=== PATIENT | female | born 1955 | race Caucasian/White ===

== ENCOUNTER → 2016-08-10 | Outpatient (CLI) | payer MEDICARE ==
[~2016-08-10] MED LIST: AMIT25TA PO; BENA25CA2 PO; CALC1TAB16 PO; CHAN1PAK9 PO; CLAR10CA3 PO; CYMB60CA3 PO; DOCU10CA PO; EFFI10TA4 PO; EQ A1TAB12 PO; FLON0.054; FOLI1TAB2 PO; HYDR-4274 PO; IRBE150T14 PO; MECL-68 PO; MELO15TA4 PO; MORP-38 PO; NIAC500T5 PO; NITR4TASL SL; OXYC15TA76 PO; OXYC1TAB16 PO; OXYC20TA21 PO; PERC10TA17 PO; PRAV40TA2 PO; PRED10TA PO; PREG50CA PO; REQU2TAB3 PO; ROBA750T4 PO; SKEL-29 PO; SOMA350T PO; TOPR50TA PO; TRIA-15 PO; VITA20008 PO; VOLT1GEL24 TD; ZOFR20TA PO
--- NOTE | 2016-09-02 00:20 | ECWPNPC ---
PATIENT NAME: HASEEB KURTZ : 1955 GENDER: FEMALE VISIT DATE: 08/10/2016 DISCHARGE DATE: 08/10/16 1605 VISIT LOCKED DATE TIME: PHYSICIAN: ESTRELLA TIRADO RESOURCE: ESTRELLA TIRADO REASON FOR APPOINTMENT 1. NEIL HISTORY OF PRESENT ILLNESS HISTORY OF PRESENT ILLNESS: PAIN THE PATIENT DESCRIBES THE PAIN... FALL RISK SCREENING: SCREENING :NO FALLS IN THE PAST YEAR TODAY'S VISIT: NOTES: IS STATUS POST BOTOX FOR MIGRAINE PREVENTION. MIGRAINE AURA IS OCCURRING ALMOST DAILY. HASHAD A FULL MIGRAINE X 1 IN LAST 2 WEEKS. THIS EVENT LASTED 16 HOURS. AURA IS GONE WITHIN A HOUR WITH MEDS. MINIMAL NAUSEA IN LAST 2 WEEKS, BUT BEFORE THIS IT WAS SEVERE AND THIS WAS NOT TOUCHED BY NAUSEA MEDS. IS NOTING METOCLOPRAMIDE HAS NOT BEEN EFFECTIVE. HAS NOTED MORPHINE HAS HELPED HIP PAIN. APPETITE IS POOR. . CURRENT MEDICATIONS TAKING CALCIUM 1200+D3 600-40-500 MG-MG-UNIT TABLET EXTENDED RELEASE 24 HOUR ORALLY ONCE DAILY, NOTES: 06/30/16 08 TAKING EFFIENT 10 MG TABLET 1 TABLET ORALLY ONCE A DAY (CESAR), NOTES: 06/30/161199 DR. PALOMARES AWARE TAKING NITROGLYCERIN 0.4 MG TABLET SUBLINGUAL 1 TABLET UNDER THE TONGUE AND ALLOW TO DISSOLVE NEEDED SUBLINGUAL NEEDED (CESAR), NOTES: > 1 MONTH TAKING LORATADINE 10 MG TABLET 1 TABLET ORALLY ONCE A DAY NEEDED, NOTES: 06/30/16 0800 TAKING NIACIN 500 MG TABLET 1 TABLET ORALLY ONCE A WEEK, NOTES: 06/29/16 0800 TAKING MECLIZINE HCL 25 MG CAPSULE 1 CAP(S) ORALLY DAILY NEEDED, NOTES: > 3 MONTHS TAKING VOLTAREN 1 % GEL APPLY TO HARITHA KNEES OR HIPS EXTERNALLY EVERY 6 HOURS NEEDED (PAIN CLINIC), NOTES: > 1 MONTH TAKING ATORVASTATIN CALCIUM 40 MG TABLET 1 TABLET ORALLY ONCE A DAY, NOTES: 06/29/161999 TAKING ASPIRIN ADULT LOW DOSE 81 MG TABLET DELAYED RELEASE 1 TABLET ORALLY ONCE A DAY, NOTES: 06/30/16 1200 TAKING HOSPITAL BED _ MISCELLANEOUS 1 ICD: M25.50, M79.1 DAILY TAKING ZOFRAN 4 MG TABLET 2 TABLETS ORALLY Q 8 HRS PRN NAUSEA MDD=3, NOTES: > 2 WEEKS TAKING COLACE 100 MG CAPSULE 1 CAPSULE NEEDED ORALLY BID, NOTES: > 1 WEEK TAKING ETOTSTISCT-[id number]-[id number] 50-325-40 MG TABLET 1 TABLET NEEDED ORALLY EVERY 4 HRS PRN HEADACHE MDD=3 TAKING MORPHINE SULFATE ER 30 MG TABLET EXTENDED RELEASE 1 TABLET ORALLY EVERY 8 HOURS MDD=3 CHRONIC PAIN TAKING REGLAN 10 MG TABLET 1 TAB ORALLY Q 8 HRS PRN MIGRAINE TAKING CYMBALTA 60 MG CAPSULE DELAYED RELEASE PARTICLES 1 CAPSULE ORALLY ONCE A DAY, NOTES: 06/30/16 1200 TAKING PREDNISONE 20 MG TABLET 1 TABLET ORALLY ONCE A DAY TAKING TOPROL XL 50 MG TABLET EXTENDED RELEASE 24 HOUR 1 TABLET ORALLY TWICE A DAY, NOTES: 06/30/16 0800 TAKING AMLODIPINE BESYLATE 5 MG TABLET 2 TABLET ORALLY ONCE A DAY, NOTES: 06/30/16 0800 TAKING IRBESARTAN-HYDROCHLOROTHIAZIDE 150-12.5 MG TABLET 2 TABLET ORALLY TWICE DAILY/DR GUERRERO, NOTES: 06/30/16 0800 TAKING ROBAXIN-750 750 MG TABLET 1 TABLET ORALLY EVERY 8 HOURS NEEDED, NOTES: 06/30 16 08 NOT-TAKING OXYMORPHONE HCL 5 MG TABLET 1 TABLET ORALLY EVERY 6-8 HRS PRN PAIN, NOTES: 06/29/161999 NOT-TAKING FIORICET APAP 325-50-40 CAPSULE 1 CAPSULE NEEDED ORALLY EVERY 4 HOURS PRN FOR HEADACHES MDD4 NOT-TAKING HYDROMORPHONE HCL 2 MG TABLET 1 TABLET NEEDED ORALLY EVERY 8 HRS PRN PAIN MDD=3 NOT-TAKING TRIAZOLAM 0.25 MG TABLET 1 TABLET AT BEDTIME NEEDED ORALLY ONCE A DAY, NOTES: 05-07-16 MEDICATION LIST REVIEWED AND RECONCILED WITH THE PATIENT PAST MEDICAL HISTORY FIBROMYALGIA OSTEOPOROSIS HEREDITARY SPHEROCYTOSIS S/P SPLENECTOMY HYPERTHYROIDISM / NODULAR THYROID 2011 S/P STENTING ENDOMETRIOSIS S/P MISSY / BSO RHEUMATOID ARTHRITIS R HAND NUMBNESS / PARESTHESIAS OBSTRUCTIVE SLEEP APNEA DYSLIPIDEMIA ALLERGIC RHINITIS ANXIETY HYPERTENSION ALLERGIES GABAPENTIN: MIGRAINES: ALLERGY LYRICA: FEET SWELLING: ALLERGY NORTRIPTYLINE HCL: ITCHING/RASH: ALLERGY SOCIAL HISTORY GENERAL: TOBACCO USE ARE YOU A:NONSMOKER 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 NEW PATIENT PAIN DIARY TODAY'S VISITNOTES FROM 0-10, WHAT LEVEL IS YOUR PAIN TODAY?0 PAIN CLINIC PFS, CLERGY, PUBLIC HEALTH REFERRALS PFS REFERRAL NEEDED?NO CLERGY REFERRAL NEEDED?NO PUBLIC HEALTH REFERRAL NEEDED?NO WAS THE PROVIDER NOTIFIED OF ANY PERTINENT INFO?NO PFS REFERRAL NEEDED?NO CLERGY REFERRAL NEEDED?NO PUBLIC HEALTH REFERRAL NEEDED?NO WAS THE PROVIDER NOTIFIED OF ANY PERTINENT INFO?NO REVIEW OF SYSTEMS CONSTITUTIONAL: ANY CHANGE IN YOUR MEDICAL CONDITION? NO . CHILLS NO . FEVER NO . INFECTION: DO YOU HAVE NEW INFECTIONS? NO . DO YOU HAVE HISTORY OF MRSA? NO . MUSCULOSKELETAL: ANY NEW PATTERNS OF PAIN OR NUMBNESS? NO . GASTROENTEROLOGY: ANY NEW CHANGE IN BOWEL CONTROL? NO - QOD - NOT CONSTIPATED . GENITOURINARY: ANY NEW CHANGE IN BLADDER CONTROL? NO . IS THERE A CHANCE YOU COULD BE ? NO . HEMATOLOGY/LYMPH: DO YOU TAKE ANY BLOOD THINNERS? (FOR EXAMPLE- COUMADIN, PLAVIX, AGGRENOX, PLATEL, PRADAXA, OR XARELTO) YES EFFIENT . WHEN WAS YOUR LAST DOSE? DATE: TIME: . NEUROLOGY: HAVE YOU FALLEN IN THE PAST 6 MONTHS? NO . ANY NEW EXTREMITY NUMBNESS OR WEAKNESS? NO . CARDIOLOGY: DO YOU HAVE A PACEMAKER OR DEFIBRILLATOR? NO . RESPIRATORY: HAVE YOU BEEN SICK IN THE PAST WEEK? NO . FEVER NO . FLU LIKE SYMPTOMS? NO . COUGH NO . INTEGUMENTARY: DO YOU HAVE ANY RASHES OR OPEN SORES? NO . ALLERGIC/IMMUNO: ARE YOU ALLERGIC TO SHELLFISH OR IV DYE? NO . ANY NEW ALLERGIES? NO . PSYCHIATRIC: DO YOU HAVE THOUGHTS OF HURTING YOURSELF OR SOMEONE ELSE? NO . ARE YOU ABUSED, NEGLECTED, OR IN AN UNSAFE ENVIRONMENT? NO . ENDOCRINOLOGY: ARE YOU DIABETIC? YES . OTHER: DO YOU NEED ANY PRESCRIPTIONS? NO . IF YES, PLEASE LIST: ____ . ANY NEW PROBLEMS WITH YOUR MEDICATIONS? NO . WHEN DID YOU LAST EAT? ____ . WHEN DID YOU LAST DRINK? ____ . WHAT DID YOU LAST DRINK? ____ . NAME OF PERSON DRIVING YOU HOME? ____ . DO YOU HAVE ANY OTHER QUESTIONS OR CONCERNS NO . REVIEWED BY: PROVIDER: ESTRELLA PAULA . VITAL SIGNS WT 162 LBS, HT 61.25 IN, BMI 30.36 INDEX, BP 136/67 MM HG, HR 71 /MIN, RR 18 /MIN, TEMP 96.7 F, OXYGEN SAT % 96%, NA INITIALS SC 15:17, REVIEWED BY: MLF. EXAMINATION GENERAL EXAMINATION: PSYCHANXIOUS, CRYING, ALERT , ORIENTED X 3 . LUNGS:CLEAR TO AUSCULTATION BILATERALLY. HEART:HEART RATE REGULAR, RAPID. MUSCULOSKELETAL:TRIGGER POINTS:, ELICITED WITH PALPATION OVER LUMBAR PARAVERTEBRAL MUSCLES AND INTO THE SECRUM. RESTRICTION OF ROM IN THIS AREA. EXTREMITIES:ECCYMOTIC AREAS NOTED OVER BILATERAL FOREARMS. NEUROLOGIC EXAM:CN'S II-XII GROSSLY INTACT, EOM'S INTACT WITHOUT NYSTAGMUS. MINIMAL TENDERNESS TO PALPATION OVER BILATER OCCIPITAL NOTCH REGIONS.GOOD SHOULDER SHRUG. SPEACH NONDYSARTHRIC. TONGUE PROTRUDES AT IMDLINE. 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 , FALLS CARE PLAN: 1. RECOMMEND REMOVING ALL THROW RUGS. 2. RECOMMEND NIGHT LIGHTS 3. RECOMMEND WEARING RUBBER SOLED SHOES AND TO NOT GO BAREFOOT. 4.. ADVISED TO CHANGE POSITION SLOWLY FROM SUPINE TO STANDING TO AVOID DIZZINESS. 5. ADVISED TO USE ASSISTIVE DEVICE SUCH CANE OR WALKER 6. USE LIF[employer]INE SERVICES OR KEEP PORTABLE PHONE READILY AVAILABLE, # 226 TOBACCO USE SCREENING/INTERVENTION: PATIENT CURRENTLY USED TOBACCO. WAS OFFERED SMOKING CESSATION FOR GUIDANCE IN QUITTING THROUGH THE [facility] QUITS PROGRAM AND THE [facility] CESSATION PROGRAM. CLINICAL NOTES: ISTOP REGISTRY REVIEWED AND DEMNOSTRATES COMPLLIANCE. BRINGS IN MEDICATIONS WHICH IS APPROPRIATE FOR WHAT WAS DISPENSED. RECENT URINE TOXICOLOGY REVIEWED. NO UNAUTHORIZED MEDICATIONS. NO ILLICIT SUBSTANCES AND PRESCRIBED MEDICATIONS WERE PRESENT. PROCEDURE CODES FA211 ESTABILISHED PATIENT [facility] FACILITY CHARGE G3851 BP SCR PRFRM RCMDD DEFIND SCR INTVL G7030 PAIN ASSESS POS TOOL F/U PLAN DOC 3016F PT SCRND UNHLTHY OH USE 1124F ACP DISCUSS-NO DSCNMKR DOCD 5318F FALL PLAN OF CARE DOCD G8427 DOC MEDS VERIFIED W/PT OR RE G8420 BMI<30 AND >=22 CALC & DOCU 3288F FALL RISK ASSESSMENT DOCD 4004F PT TOBACCO SCREEN RCVD TLK FOLLOW UP 1 MONTH ELECTRONICALLY SIGNED BY ROBYN BARRIENTOS ON 09/01/2016 AT 12:40 PM EST DISCLAIMER : THIS IS A VISIT SUMMARY EXTRACTED FROM THE [employer] CHART. IT IS NOT A COPY OF THE [employer] PROGRESS NOTE. MTDD
== END ==
LOC: M PAIN 14:40
PROVIDERS: ATTEND Nurse Practitioner Family
DX: G43.109 Migraine with aura, not intractable, without status migrainosus (principal); M35.3 Polymyalgia rheumatica; M79.7 Fibromyalgia; M81.0 Age-related osteoporosis without current pathological fracture; E03.9 Hypothyroidism, unspecified; I10 Essential (primary) hypertension; E11.9 Type 2 diabetes mellitus without complications; I25.2 Old myocardial infarction; R06.9 Unspecified abnormalities of breathing; G47.33 Obstructive sleep apnea (adult) (pediatric); E78.5 Hyperlipidemia, unspecified; J30.89 Other allergic rhinitis; F41.9 Anxiety disorder, unspecified; Z88.8 Allergy status to other drugs, medicaments and biological substances; Z79.01 Long term (current) use of anticoagulants; Z79.82 Long term (current) use of aspirin; Z79.52 Long term (current) use of systemic steroids; Z79.891 Long term (current) use of opiate analgesic; Z79.899 Other long term (current) drug therapy; Z90.81 Acquired absence of spleen

== ENCOUNTER → 2016-08-17 | Outpatient (CLI) | payer MEDICARE ==
--- NOTE | 2016-08-17 13:59 | REP ---
Thyroid ultrasound: Comparisons 11/22/2012. Right lobe: Right lobe is enlarged measuring 5.7 x 2.3 by 3.0 cm (previously 4.2 x 2.8 x 2.1 cm). There are multiple right lobe nodules as previously. On the study today, the largest nodules measure 2.3 cm in the upper pole, 2.6 cm at the mid pole and 1.9 cm at the lower pole. There are multiple other smaller nodules. Left lobe: The left lobe is enlarged measuring 5.5 x 1.9 x 2.8 cm (previously 5.2 x 128 x 2.6 cm). There are multiple left lobe nodules. The largest measure 1.3 cm in the upper pole, 2.0 cm at the mid pole, and 2.1 cm at the lower pole. There are multiple other smaller nodules. The isthmus is upper normal thickness measuring 3.2 mm. Impression: Findings are compatible with multinodular goiter. Consideration might be given to ultrasound guided biopsy of the larger nodules. Signed by Khanh Marie MD 08/17/2016 01:50 P
[2016-08-17 14:25] LABS: BASO # 0.4 K/mm3 (0.0-0.2); BASO % 1.5 % (0.0-1.0); EOS # 0.4 K/mm3 (0.0-0.50); EOS % 1.3 % (0.0-3.0); LARGE UNSTAINED CELL # 0.2 K/mm3 (0.0-0.4); LARGE UNSTAINED CELL % 0.8 % (0.0-4.0); LYMPH # 7.9 K/mm3 (1.5-4.5); LYMPH % 27.4 % (24.0-44.0); MEAN CORPUSCULAR HGB CONC 33.4 g/dl (32.0-36.5); MEAN CORPUSCULAR VOLUME 92.8 fl (80.0-96.0); MONO # 1.1 K/mm3 (0.0-0.8); MONO % 3.8 % (0.0-5.0); NEUTROPHILS # 18.2 K/mm3 (1.8-7.7); NEUTROPHILS % 65.3 % (36.0-66.0); PLATELET COUNT, AUTOMATED 322 k/mm3 (150-450)
[2016-08-17 14:30] LABS: WHITE BLOOD COUNT 27.9 K/mm3 (4.0-10.0)
[2016-08-17 15:00] LABS: ANION GAP 9 MEQ/L (8-16); BLOOD UREA NITROGEN 21 MG/DL (7-18); CALCIUM LEVEL 9.3 MG/DL (8.8-10.2); CARBON DIOXIDE LEVEL 32 MEQ/L (21-32); CHLORIDE LEVEL 100 MEQ/L (98-107); CREATININE FOR GFR 0.99 MG/DL (0.55-1.02); GLOMERULAR FILTRATION RATE > 60.0 (>45); GLUCOSE, FASTING 143 MG/DL (80-110); POTASSIUM SERUM 4.5 MEQ/L (3.5-5.1); SODIUM LEVEL 141 MEQ/L (136-145)
== END | disposition home or self-care (01) ==
LOC: M RAD 12:50
PROVIDERS: ATTEND Family Medicine
DX: E04.9 Nontoxic goiter, unspecified (principal); Z79.52 Long term (current) use of systemic steroids

== ENCOUNTER → 2016-09-13 | Outpatient (CLI) | payer MEDICARE ==
--- NOTE | 2016-09-16 23:56 | ECWPNPC ---
PATIENT NAME: HASEEB KURTZ : 1955 GENDER: FEMALE VISIT DATE: 09/13/2016 DISCHARGE DATE: 09/13/16 1625 VISIT LOCKED DATE TIME: PHYSICIAN: ESTRELLA TIRADO RESOURCE: ESTRELLA TIRADO REASON FOR APPOINTMENT 1. NEIL HISTORY OF PRESENT ILLNESS HISTORY OF PRESENT ILLNESS: PAIN THE PATIENT DESCRIBES THE PAIN... FALL RISK SCREENING: SCREENING :NO FALLS IN THE PAST YEAR TODAY'S VISIT: NOTES: REPORTS THAT SHE HAS HAD MIGRAINES 27/30 DAYS FOR LAST MONTH. THESE MIGRAINES CAN VARY IN INTENSITY AND IN THE LENGTH OF TIME WHICH THEY ARE PRESENT. STATES THAT SHE IS ANXIOUSLY AWAITING HER NEXT COURSE OF BOTOX TREATMENT. STOPPED REGLAN LAST NONTH. HAD 2 FLAIRS OF FIBRO. . CURRENT MEDICATIONS TAKING CALCIUM 1200+D3 600-40-500 MG-MG-UNIT TABLET EXTENDED RELEASE 24 HOUR ORALLY ONCE DAILY TAKING EFFIENT 10 MG TABLET 1 TABLET ORALLY ONCE A DAY (CESAR) TAKING NITROGLYCERIN 0.4 MG TABLET SUBLINGUAL 1 TABLET UNDER THE TONGUE AND ALLOW TO DISSOLVE NEEDED SUBLINGUAL NEEDED (CESAR) TAKING LORATADINE 10 MG TABLET 1 TABLET ORALLY ONCE A DAY NEEDED TAKING NIACIN 500 MG TABLET 1 TABLET ORALLY ONCE A DAY TAKING MECLIZINE HCL 25 MG CAPSULE 1 CAP(S) ORALLY DAILY NEEDED TAKING VOLTAREN 1 % GEL APPLY TO HARITHA KNEES OR HIPS EXTERNALLY EVERY 6 HOURS NEEDED (PAIN CLINIC) TAKING ATORVASTATIN CALCIUM 40 MG TABLET 1 TABLET ORALLY ONCE A DAY TAKING ASPIRIN ADULT LOW DOSE 81 MG TABLET DELAYED RELEASE 1 TABLET ORALLY ONCE A DAY TAKING HOSPITAL BED _ MISCELLANEOUS 1 ICD: M25.50, M79.1 DAILY TAKING COLACE 100 MG CAPSULE 1 CAPSULE NEEDED ORALLY BID TAKING [id number] 50-325-40 MG TABLET 1 TABLET NEEDED ORALLY EVERY 4 HRS PRN HEADACHE MDD=3 TAKING REGLAN 10 MG TABLET 1 TAB ORALLY Q 8 HRS PRN MIGRAINE TAKING CYMBALTA 60 MG CAPSULE DELAYED RELEASE PARTICLES 1 CAPSULE ORALLY ONCE A DAY TAKING PREDNISONE 20 MG TABLET 1 TABLET ORALLY ONCE A DAY TAKING TOPROL XL 50 MG TABLET EXTENDED RELEASE 24 HOUR 1 TABLET ORALLY TWICE A DAY TAKING IRBESARTAN-HYDROCHLOROTHIAZIDE 150-12.5 MG TABLET 2 TABLET ORALLY TWICE DAILY/DR CESAR TAKING ROBAXIN-750 750 MG TABLET 1 TABLET ORALLY EVERY 8 HOURS NEEDED TAKING AMLODIPINE BESYLATE 5 MG TABLET 2 TABLET ORALLY TWICE A DAY TAKING MORPHINE SULFATE ER 30 MG TABLET EXTENDED RELEASE 1 TABLET ORALLY EVERY 8 HOURS MDD=3 CHRONIC PAIN TAKING MORPHINE SULFATE 15 MG TABLET 1 TABLET ORALLY BID PRN PAIN MDD=2 NOT-TAKING ZOFRAN 4 MG TABLET 2 TABLETS ORALLY Q 8 HRS PRN NAUSEA MDD=3 NOT-TAKING FIORICET APAP 325-50-40 CAPSULE 1 CAPSULE NEEDED ORALLY EVERY 4 HOURS PRN FOR HEADACHES MDD4 NOT-TAKING HYDROMORPHONE HCL 2 MG TABLET 1 TABLET NEEDED ORALLY EVERY 8 HRS PRN PAIN MDD=3 NOT-TAKING TRIAZOLAM 0.25 MG TABLET 1 TABLET AT BEDTIME NEEDED ORALLY ONCE A DAY, NOTES: 05-07-16 MEDICATION LIST REVIEWED AND RECONCILED WITH THE PATIENT PAST MEDICAL HISTORY FIBROMYALGIA OSTEOPOROSIS HEREDITARY SPHEROCYTOSIS S/P SPLENECTOMY HYPERTHYROIDISM / NODULAR THYROID 2011 S/P STENTING ENDOMETRIOSIS S/P MISSY / BSO RHEUMATOID ARTHRITIS R HAND NUMBNESS / PARESTHESIAS OBSTRUCTIVE SLEEP APNEA DYSLIPIDEMIA ALLERGIC RHINITIS ANXIETY HYPERTENSION POLYMYALGIA RHEUMATICA SPHEROCYTOSIS ALLERGIES GABAPENTIN: MIGRAINES: ALLERGY LYRICA: FEET SWELLING: ALLERGY NORTRIPTYLINE HCL: ITCHING/RASH: ALLERGY IMITREX: SEVERE HYPERTENSION: SIDE EFFECTS SURGICAL HISTORY SPLENECTOMY LAD STENT PLACEMENT 04/2012 APPENDECTOMY MISSY/BSO AGE 34 BLADDER SLING CHOLECYSTECTOMY LUMPECTOMY R BREAST BY DR SMITH 09/2014 SOCIAL HISTORY GENERAL: TOBACCO USE ARE YOU A:CURRENT SMOKER 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 NEW PATIENT PAIN DIARY TODAY'S VISITNOTES FROM 0-10, WHAT LEVEL IS YOUR PAIN TODAY?0 PAIN CLINIC PFS, CLERGY, PUBLIC HEALTH REFERRALS PFS REFERRAL NEEDED?NO CLERGY REFERRAL NEEDED?NO PUBLIC HEALTH REFERRAL NEEDED?NO WAS THE PROVIDER NOTIFIED OF ANY PERTINENT INFO?NO PFS REFERRAL NEEDED?NO CLERGY REFERRAL NEEDED?NO PUBLIC HEALTH REFERRAL NEEDED?NO WAS THE PROVIDER NOTIFIED OF ANY PERTINENT INFO?NO HOSPITALIZATION/MAJOR DIAGNOSTIC PROCEDURE SURGERIES REVIEW OF SYSTEMS CONSTITUTIONAL: ANY CHANGE IN YOUR MEDICAL CONDITION? NO . CHILLS NO . FEVER NO . INFECTION: DO YOU HAVE NEW INFECTIONS? NO . DO YOU HAVE HISTORY OF MRSA? NO . MUSCULOSKELETAL: ANY NEW PATTERNS OF PAIN OR NUMBNESS? YES, INTERMITTENT INTENSE PAIN LASTING LESS THAN SECONDS LEFT LEG AT NIGHT,BONE PAIN, MIGRAINES EVERY DAY THIS MONTH EXCEPT FOR 3 DAYS . GASTROENTEROLOGY: ANY NEW CHANGE IN BOWEL CONTROL? NO . GENITOURINARY: ANY NEW CHANGE IN BLADDER CONTROL? NO . IS THERE A CHANCE YOU COULD BE ? NO . HEMATOLOGY/LYMPH: DO YOU TAKE ANY BLOOD THINNERS? (FOR EXAMPLE- COUMADIN, PLAVIX, AGGRENOX, PLATEL, PRADAXA, OR XARELTO) NO . WHEN WAS YOUR LAST DOSE? DATE: TIME: . NEUROLOGY: HAVE YOU FALLEN IN THE PAST 6 MONTHS? NO . ANY NEW EXTREMITY NUMBNESS OR WEAKNESS? NO . CARDIOLOGY: DO YOU HAVE A PACEMAKER OR DEFIBRILLATOR? NO . RESPIRATORY: HAVE YOU BEEN SICK IN THE PAST WEEK? NO . FEVER NO . FLU LIKE SYMPTOMS? NO . COUGH NO . INTEGUMENTARY: DO YOU HAVE ANY RASHES OR OPEN SORES? NO . ALLERGIC/IMMUNO: ARE YOU ALLERGIC TO SHELLFISH OR IV DYE? NO . ANY NEW ALLERGIES? NO . PSYCHIATRIC: DO YOU HAVE THOUGHTS OF HURTING YOURSELF OR SOMEONE ELSE? NO . ARE YOU ABUSED, NEGLECTED, OR IN AN UNSAFE ENVIRONMENT? NO . ENDOCRINOLOGY: ARE YOU DIABETIC? YES - BLOOD SUGARS STABLE . OTHER: DO YOU NEED ANY PRESCRIPTIONS? NO . IF YES, PLEASE LIST: ____ . ANY NEW PROBLEMS WITH YOUR MEDICATIONS? NO . WHEN DID YOU LAST EAT? ____ . WHEN DID YOU LAST DRINK? ____ . WHAT DID YOU LAST DRINK? ____ . NAME OF PERSON DRIVING YOU HOME? ____ . DO YOU HAVE ANY OTHER QUESTIONS OR CONCERNS NO . UROLOGY: BURNING ON URINATION INTERMITTANT . REVIEWED BY: PROVIDER: ESTRELLA PAULA . VITAL SIGNS WT 164.6 LBS, HT 61.25 IN, BMI 30.84 INDEX, BP 124/68 MM HG, HR 62 /MIN, RR 18 /MIN, TEMP 97.1 F, OXYGEN SAT % 100%, NA INITIALS SC 15:15, REVIEWED BY: [id number]. EXAMINATION GENERAL EXAMINATION: PSYCHORIENTED X 3 , ALERT , TALKATIVE. SMILING TODAY. LUNGS:CLEAR TO AUSCULTATION BILATERALLY. HEART:HEART RATE REGULAR, RAPID. MUSCULOSKELETAL:TRIGGER POINTS:, ELICITED WITH PALPATION OVER LUMBAR PARAVERTEBRAL MUSCLES AND INTO THE SECRUM. RESTRICTION OF ROM IN THIS AREA. EXTREMITIES:ECCYMOTIC AREAS NOTED OVER BILATERAL FOREARMS. NEUROLOGIC EXAM:CN'S II-XII GROSSLY INTACT, EOM'S INTACT WITHOUT NYSTAGMUS. MINIMAL TENDERNESS TO PALPATION OVER BILATER OCCIPITAL NOTCH REGIONS.GOOD SHOULDER SHRUG. SPEACH NONDYSARTHRIC. TONGUE PROTRUDES AT MIDLINE. PHOTOPHOBIC. 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 CLINICAL NOTES: ISTOP REGISTRY REVIEWED AND DEMNOSTRATES COMPLLIANCE. BRINGS IN MEDICATIONS WHICH IS APPROPRIATE FOR WHAT WAS DISPENSED. RECENT URINE TOXICOLOGY REVIEWED. NO UNAUTHORIZED MEDICATIONS. NO ILLICIT SUBSTANCES AND PRESCRIBED MEDICATIONS WERE PRESENT. PREVENTIVE MEDICINE PAIN CLINIC TEACHING: PROCEDURE TEACHING PRE BOTOX INSTRUCTIONS REVIEWED WITH PT. VERBALIZED UNDERSTANDING.. PROCEDURE CODES G8730 PAIN ASSESS POS TOOL F/U PLAN DOC G8427 DOC MEDS VERIFIED W/PT OR RE DISPOSITION & COMMUNICATION ELECTRONICALLY SIGNED BY ROBYN BARRIENTOS ON 09/16/2016 AT 12:50 PM EST DISCLAIMER : THIS IS A VISIT SUMMARY EXTRACTED FROM THE [employer] CHART. IT IS NOT A COPY OF THE [employer] PROGRESS NOTE. NOLAN
== END ==
LOC: M PAIN 15:00
PROVIDERS: ATTEND Nurse Practitioner Family
DX: Z09 Encounter for follow-up examination after completed treatment for conditions other than malignant neoplasm (principal); G89.29 Other chronic pain; G43.009 Migraine without aura, not intractable, without status migrainosus; M35.3 Polymyalgia rheumatica; M79.1 Myalgia; M81.0 Age-related osteoporosis without current pathological fracture; E05.00 Thyrotoxicosis with diffuse goiter without thyrotoxic crisis or storm; E11.9 Type 2 diabetes mellitus without complications; I25.2 Old myocardial infarction; F17.210 Nicotine dependence, cigarettes, uncomplicated; M05.9 Rheumatoid arthritis with rheumatoid factor, unspecified; G47.33 Obstructive sleep apnea (adult) (pediatric); E78.5 Hyperlipidemia, unspecified; J30.9 Allergic rhinitis, unspecified; F41.9 Anxiety disorder, unspecified; I10 Essential (primary) hypertension; R20.0 Anesthesia of skin; Z88.8 Allergy status to other drugs, medicaments and biological substances; Z79.82 Long term (current) use of aspirin; Z79.52 Long term (current) use of systemic steroids; Z79.899 Other long term (current) drug therapy; Z95.5 Presence of coronary angioplasty implant and graft

== ENCOUNTER → 2016-09-27 | Outpatient (CLI) | payer MEDICARE ==
--- NOTE | 2016-09-28 15:12 | REP ---
NUCLEAR THYROID UPTAKE AND SCAN: Following the oral administration of 340 microcuries of iodine 123 of sodium iodine, thyroid uptake is measured. The 24 hour uptake is 33.5% which is within normal range of 25-35%. Thyroid scan demonstrates both lobes to be mildly enlarged, both slightly greater than 5 cm in length. Heterogeneous uptake is seen diffusely bilaterally with an area of relatively increased uptake in the lower half of the right lobe. Findings are nonspecific with regard to the multiple nodules seen on the ultrasound of 08/17/2016. There were three complex nodules scattered throughout each lobe. Decision to perform fine-needle aspiration should be based on clinical grounds. Signed by Khanh Avery MD 09/28/2016 08:12 P
== END ==
LOC: M RAD 12:28
PROVIDERS: ATTEND Family Medicine
DX: E05.20 Thyrotoxicosis with toxic multinodular goiter without thyrotoxic crisis or storm (principal)
CPT/HCPCS: 78012; A9516

== ENCOUNTER → 2016-10-01 | Outpatient (CLI) | payer MEDICARE ==
[~2016-10-01] MED LIST changes: +BOTULINUM INJ 100 UNITS (J0585) IM ONE; +diazePAM 5 MG TAB As Ordered ONE; +oxyCODONE 5MG TAB As Ordered ONE
--- NOTE | 2016-10-09 23:15 | ECWPNPC ---
PATIENT NAME: HASEEB KURTZ : 1955 GENDER: FEMALE VISIT DATE: 10/01/2016 DISCHARGE DATE: 10/01/16 1515 VISIT LOCKED DATE TIME: PHYSICIAN: GABRIELLE PALOMARES RESOURCE: GABRIELLE PALOMARES REASON FOR APPOINTMENT 1. BOTOX INJ HISTORY OF PRESENT ILLNESS HISTORY OF PRESENT ILLNESS: PAIN THE PATIENT DESCRIBES THE PAIN... FALL RISK SCREENING: SCREENING :NO FALLS IN THE PAST YEAR CURRENT MEDICATIONS TAKING DRISDOL 31949 UNIT CAPSULE 1 CAPSULE ORALLY ONCE WEEKLY, NOTES: 09-29-16 TAKING AMLODIPINE BESYLATE 5 MG TABLET 1 TABLET ORALLY TWICE A DAY, NOTES: 10-01-16599 TAKING ASPIRIN ADULT LOW DOSE 81 MG TABLET DELAYED RELEASE 1 TABLET ORALLY ONCE A DAY, NOTES: 09-30-161499 TAKING ATORVASTATIN CALCIUM 40 MG TABLET 1 TABLET ORALLY ONCE A DAY, NOTES: 09-30-161799 TAKING CALCIUM 1200+D3 600-40-500 MG-MG-UNIT TABLET EXTENDED RELEASE 24 HOUR ORALLY ONCE DAILY, NOTES: 09-30-161499 TAKING COLACE 100 MG CAPSULE 1 CAPSULE NEEDED ORALLY BID, NOTES: NONE TAKING CYMBALTA 60 MG CAPSULE DELAYED RELEASE PARTICLES 1 CAPSULE ORALLY ONCE A DAY, NOTES: 09-30-161499 TAKING EFFIENT 10 MG TABLET 1 TABLET ORALLY ONCE A DAY (CESAR), NOTES: 09-30-161499 TAKING HOSPITAL BED _ MISCELLANEOUS 1 ICD: M25.50, M79.1 DAILY TAKING IRBESARTAN-HYDROCHLOROTHIAZIDE 150-12.5 MG TABLET 2 TABLET ORALLY TWICE DAILY/DR GUERRERO, NOTES: 09-30-16599 TAKING LORATADINE 10 MG TABLET 1 TABLET ORALLY ONCE A DAY NEEDED, NOTES: 09-30-161499 TAKING [id number] 50-325-40 MG TABLET 1 TABLET NEEDED ORALLY EVERY 4 HRS PRN HEADACHE MDD=3, NOTES: 10-01-16599 TAKING ATIVAN 0.5 MG TABLET 1 TABLET ORALLY TAKE ONE HOUR PRIOR TO TEST, AND ON ON ARRIVAL TO TEST LOCATION MDD=2, NOTES: 09-29-16 TAKING PREDNISONE 20 MG TABLET 1 TABLET ORALLY ONCE A DAY, NOTES: 09-30-161999 TAKING MORPHINE SULFATE ER 30 MG TABLET EXTENDED RELEASE 1 TABLET ORALLY EVERY 8 HRS TAKING MORPHINE SULFATE 15 MG TABLET 1 TABLET NEEDED ORALLY TWICE DAILY NEEDED DISCONTINUED HYDROMORPHONE HCL 2 MG TABLET 1 TABLET NEEDED ORALLY EVERY 8 HRS PRN PAIN MDD=3 MEDICATION LIST REVIEWED AND RECONCILED WITH THE PATIENT PAST MEDICAL HISTORY FIBROMYALGIA OSTEOPOROSIS HEREDITARY SPHEROCYTOSIS S/P SPLENECTOMY HYPERTHYROIDISM / NODULAR THYROID UT - 2011 S/P STENTING ENDOMETRIOSIS S/P MISSY / BSO RHEUMATOID ARTHRITIS R HAND NUMBNESS / PARESTHESIAS OBSTRUCTIVE SLEEP APNEA DYSLIPIDEMIA ALLERGIC RHINITIS ANXIETY HYPERTENSION POLYMYALGIA RHEUMATICA SPHEROCYTOSIS ALLERGIES GABAPENTIN: MIGRAINES: ALLERGY LYRICA: FEET SWELLING: ALLERGY NORTRIPTYLINE HCL: ITCHING/RASH: ALLERGY IMITREX: SEVERE HYPERTENSION: SIDE EFFECTS SOCIAL HISTORY GENERAL: TOBACCO USE ARE YOU A:NONSMOKER 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 NEW PATIENT PAIN DIARY TODAY'S VISITNOTES FROM 0-10, WHAT LEVEL IS YOUR PAIN TODAY?0 PAIN CLINIC PFS, CLERGY, PUBLIC HEALTH REFERRALS PFS REFERRAL NEEDED?NO CLERGY REFERRAL NEEDED?NO PUBLIC HEALTH REFERRAL NEEDED?NO WAS THE PROVIDER NOTIFIED OF ANY PERTINENT INFO?NO PFS REFERRAL NEEDED?NO CLERGY REFERRAL NEEDED?NO PUBLIC HEALTH REFERRAL NEEDED?NO WAS THE PROVIDER NOTIFIED OF ANY PERTINENT INFO?NO REVIEW OF SYSTEMS CONSTITUTIONAL: ANY CHANGE IN YOUR MEDICAL CONDITION? NO . CHILLS NO . FEVER NO . INFECTION: DO YOU HAVE NEW INFECTIONS? NO . DO YOU HAVE HISTORY OF MRSA? NO . MUSCULOSKELETAL: ANY NEW PATTERNS OF PAIN OR NUMBNESS? NO . GASTROENTEROLOGY: ANY NEW CHANGE IN BOWEL CONTROL? NO . GENITOURINARY: ANY NEW CHANGE IN BLADDER CONTROL? NO . IS THERE A CHANCE YOU COULD BE ? NO . HEMATOLOGY/LYMPH: DO YOU TAKE ANY BLOOD THINNERS? (FOR EXAMPLE- COUMADIN, PLAVIX, AGGRENOX, PLATEL, PRADAXA, OR XARELTO) YES, EFFIENT . WHEN WAS YOUR LAST DOSE? DATE: TIME: 09-30-16 1500 . NEUROLOGY: HAVE YOU FALLEN IN THE PAST 6 MONTHS? NO . ANY NEW EXTREMITY NUMBNESS OR WEAKNESS? NO . CARDIOLOGY: DO YOU HAVE A PACEMAKER OR DEFIBRILLATOR? NO . RESPIRATORY: HAVE YOU BEEN SICK IN THE PAST WEEK? NO . FEVER NO . FLU LIKE SYMPTOMS? NO . COUGH NO . INTEGUMENTARY: DO YOU HAVE ANY RASHES OR OPEN SORES? NO . ALLERGIC/IMMUNO: ARE YOU ALLERGIC TO SHELLFISH OR IV DYE? NO . ANY NEW ALLERGIES? NO . PSYCHIATRIC: DO YOU HAVE THOUGHTS OF HURTING YOURSELF OR SOMEONE ELSE? NO . ARE YOU ABUSED, NEGLECTED, OR IN AN UNSAFE ENVIRONMENT? NO . ENDOCRINOLOGY: ARE YOU DIABETIC? NO . OTHER: DO YOU NEED ANY PRESCRIPTIONS? YES . IF YES, PLEASE LIST: SOMETHING FOR NAUSEA . ANY NEW PROBLEMS WITH YOUR MEDICATIONS? NO . WHEN DID YOU LAST EAT? 09-30-16 1900 . WHEN DID YOU LAST DRINK? 10-01-16 0600 . WHAT DID YOU LAST DRINK? WATER . NAME OF PERSON DRIVING YOU HOME? [facility] . DO YOU HAVE ANY OTHER QUESTIONS OR CONCERNS NO . REVIEWED BY: PROVIDER: . VITAL SIGNS WT 162 LBS, HT 61.25 IN, BMI 30.36 INDEX, BP 141/67 MM HG, HR 81 /MIN, RR 16 /MIN, TEMP 96.6 F, OXYGEN SAT % 96, NA INITIALS TL 1230, REVIEWED BY: CM. ASSESSMENTS MIGRAINE WITHOUT AURA, NOT INTRACTABLE, WITHOUT STATUS MIGRAINOSUS - G43.009 (PRIMARY) PROCEDURES PN BOTOX INJECTIONS SUBSEQUENT INJECTIONS PRE PROCEDURE DIAGNOSIS CHRONIC MIGRAINE HEADACHES. POST PROCEDURE DIAGNOSIS CHRONIC MIGRAINE HEADACHES. PROCEDURE BOTOX INJECTION AT THE HEAD, NECK AND SHOULDERS. SURGEON DR. GABRIELLE PALOMARES FILLING LAYER UP NONE ANESTHESIA NONE PRE PROCEDURE NOTE THE PATIENT HAS HISTORY OF CHRONIC MIGRAINE HEADACHES. I EVALUATE THE PATIENT AND REVIEWED THE CHART. I WENT OVER THE RISKS, ALTERNATIVES, AND BENEFITS ASSOCIATED WITH THIS PROCEDURE. THE PATIENT WOULD LIKE TO PROCEED AND GIVE CONSENT TO PERFORMED THE PROCEDURE. THE PATIENT DENIES UNEXPLAINABLE WEIGHT LOSS, FEVER, CHILLS, OR NEW CHANGES IN URINARY OR BOWEL CONTROL. THE PATIENT DID A BOTOX INJECTION AT THE HEAD, NECK AND SHOULDERS 3 MONTHS AGO AND EXPRESSED MORE THAN 50% REDUCTION ON THE FREQUENCY AND INTENSITY OF THE HEADACHES. THE PATIENT EXPRESS THAT THE USE OF BOTOX HAS REDUCE SIGNIFICANTLY THE SEVERITY OF THE HEADACHES AND EXPRESSED THAT WANT TO RECEIVE THIS PROCEDURE AGAIN TODAY DESCRIPTION OF PROCEDURE THE PATIENTS WAS BROUGHT TO THE PROCEDURE ROOM AND PLACED IN THE SUPINE POSITION. I CHECKED LATERALITY AND THE AREAS WHERE THE PROCEDURE WAS GOING TO BE PERFORMED WITH THE PATIENT AND THE SUPPORTING STAFF AT THE MOMENT OF THE TIME OUT IN THE PROCEDURE ROOM. FOR THE PROCEDURE I USED A SOLUTION OF 5 UNITS OF BOTOX PER EACH 0.1 ML OF THE SOLUTION. I USED A 30-GAUGE NEEDLE TO INJECT THE SOLUTION AT THE SELECTED LOCATIONS. I INJECTED FIRST THE RIGHT AND LEFT SURFACE MOUNT TECHNOLOGY OPERATOR MUSCLES. THE LANDMARK FOR BOTH INJECTIONS WAS APPROXIMATELY 1 CM ABOVE THE SUPERIOR MEDIAL EDGE OF THE EYEBROW. AFTER THESE TWO INJECTIONS, I INJECTED THE PROCERUS MUSCLE AT THE MIDLINE POINT BETWEEN THESE FIRST TWO INJECTIONS. THEN I PROCEEDED TO INJECT THE RIGHT AND LEFT FRONTALIS MUSCLE. TWO INJECTIONS WERE DONE IN EACH SIDE. THE FIRST INJECTION WAS DONE APPROXIMATELY 2 CM ABOVE THE FIRST INJECTION OF THE SURFACE MOUNT TECHNOLOGY OPERATOR. THE SECOND INJECTION WAS DONE APPROXIMATELY 1.5 CM LATERAL TO THIS FIST INJECTION OF THE FRONTALIS OF EACH SIDE. AFTER THE INJECTIONS OVER THE FOREHEAD WERE DONE, THE PATIENT'S HEAD WAS TURNED TO THE LEFT SIDE AND WE STARTED TO WORK WITH THE RIGHT TEMPORALIS MUSCLE. FIRST INJECTION WAS DONE IN A VERTICAL LINE OF THE TRAGUS APPROXIMATELY 3 CM ABOVE THE TRAGUS. THE SECOND INJECTION WAS DONE APPROXIMATELY 2 CM ABOVE THE FIRST INJECTION. THE THIRD INJECTION WAS DONE APPROXIMATELY 1 CM FRONT CASTILLO FROM THIS VERTICAL LINE CREATED AT THE LEVEL OF THE TRAGUS, PRISON BETWEEN THESE TWO INJECTIONS. THE FOURTH INJECTION WAS DONE APPROXIMATELY 1.5 CM BACK FROM THE SECOND INJECTION TO THE TEMPORALIS IN LINE TO THE MIDPORTION OF THE EAR. THEN, WE PROCEEDED TO INJECT THE LEFT TEMPORALIS MUSCLE. WE CLEANED THE AREA WITH ALCOHOL AND PROCEEDED TO PERFORM THE SAME FOR INJECTIONS DESCRIBED ABOVE BUT IN THE LEFT TEMPORALIS MUSCLE USING THE SAME LANDMARKS. AFTER THESE INJECTIONS WERE DONE, THE PATIENT WAS SEATED. FIRST, WE STARTED TO INJECT THE LEFT AND RIGHT OCCIPITALIS MUSCLE. I INJECTED AT THE FOLLOWING PLACES IN THE RIGHT AND LEFT MUSCLE. THE FIRST INJECTION WAS DONE AT THE MIDPOINT POSITION BETWEEN THE MASTOID PROCESS AND THE INION OF THE OCCIPITAL PROTUBERANCE. THE SECOND INJECTION WAS DONE APPROXIMATELY 1.5 CM SUPERIOR AND LATERAL OF THIS POINT. THE THIRD INJECTION WAS DONE APPROXIMATELY 1.5 CM SUPERIOR AND MEDIAL TO THIS FIRST INJECTION. THEN, I PROCEEDED TO INJECT THE RIGHT AND LEFT PARASPINAL MUSCLES. LANDMARK OF THE INJECTION WERE APPROXIMATELY: FIRST INJECTION 3 CM BELOW THE INION AND 1 CM LATERAL TO THE MIDLINE AND SECOND INJECTION AT EACH SIDE WAS DONE APPROXIMATELY 1.5 CM SUPERIOR AND LATERAL OF THE FIRST INJECTION. THE LAST GROUP OF INJECTIONS WAS DONE OVER THE RIGHT AND LEFT TRAPEZIUS MUSCLE OVER THE SHOULDERS AREA. THE FIRST INJECTION WAS DONE AT THE MIDPOINT BETWEEN THE INFLECTION POINT BETWEEN THE NECK AND SHOULDER AND THE ACROMION. THE SECOND AND THIRD INJECTIONS WERE DONE APPROXIMATELY 2.5 CM LATERAL AND MEDIAL FROM THIS FIRST INJECTION. SAME TARGETS WERE USED IN THE RIGHT AND LEFT SIDE. IN TOTAL, I INJECTED 155 UNITS OF BOTOX. PROCEDURE WAS DONE WITHOUT EVIDENCE OF PARESTHESIA, PNEUMOTHORAX, OR ANY COMPLICATIONS. THE PATIENT TOLERATED THE PROCEDURE VERY WELL. THE PATIENT WAS SENT TO THE RECOVERY ROOM FOR OBSERVATIONS. INJECTIONS WERE DONE AFTER CLEANING WITH ALCOHOL, USING ASEPTIC TECHNIQUES POST PROCEDURE NOTE THE PROCEDURE DONE WAS DISCUSSED WITH THE PATIENT. THE PATIENT WILL BE SEEN IN A FOLLOW UP IN THE NEXT FEW WEEKS. INSTRUCTIONS WERE GIVEN, QUESTIONS WERE ANSWERED, AND THE PATIENT EXPRESSED UNDERSTANDING AND AGREES WITH THE PLAN. INSTRUCTIONS WERE GIVEN, QUESTIONS WERE ANSWERED, PATIENT REPORTS UNDERSTANDING AND AGREES WITH THE PLAN. I, BHARAT LUTZ, DOCUMENTED THE ABOVE INFORMATION ACTING A SCRIBE FOR DR. PALOMARES. I HAVE REVIEWED THE ABOVE DOCUMENT, WRITTEN BY BHARAT LUTZ SCRIBE AND I VERIFY THAT IT IS ACCURATE. PROCEDURE CODES FA211 ESTABILISHED PATIENT [facility] CHARGE [id number] [facility] MIGRAINE DISPOSITION & COMMUNICATION FOLLOW UP 3 WEEKS ELECTRONICALLY SIGNED BY GABRIELLE PALOMARES MD ON 10/09/2016 AT 10:27 PM EDT DISCLAIMER : THIS IS A VISIT SUMMARY EXTRACTED FROM THE [employer] CHART. IT IS NOT A COPY OF THE [employer] PROGRESS NOTE. NOLAN
== END ==
LOC: M PAIN 11:00
PROVIDERS: ATTEND Anesthesiology
DX: G43.709 Chronic migraine without aura, not intractable, without status migrainosus (principal); Z79.899 Other long term (current) drug therapy; Z79.82 Long term (current) use of aspirin; Z79.891 Long term (current) use of opiate analgesic; I25.2 Old myocardial infarction; D58.0 Hereditary spherocytosis; I25.10 Atherosclerotic heart disease of native coronary artery without angina pectoris; E78.5 Hyperlipidemia, unspecified; F32.9 Major depressive disorder, single episode, unspecified; I15.8 Other secondary hypertension; M79.7 Fibromyalgia; M35.3 Polymyalgia rheumatica; E55.9 Vitamin D deficiency, unspecified; Z88.6 Allergy status to analgesic agent; Z88.8 Allergy status to other drugs, medicaments and biological substances
CPT/HCPCS: 64615; G0463; J0585

== ENCOUNTER → 2016-10-26 | Outpatient (CLI) | payer MEDICARE ==
[~2016-10-26] MED LIST changes: -BOTULINUM INJ 100 UNITS (J0585) IM ONE; -diazePAM 5 MG TAB As Ordered ONE; -oxyCODONE 5MG TAB As Ordered ONE
--- NOTE | 2016-11-09 02:20 | ECWPNPC ---
PATIENT NAME: HASEEB KURTZ : 1955 GENDER: FEMALE VISIT DATE: 10/26/2016 DISCHARGE DATE: 10/26/16 1637 VISIT LOCKED DATE TIME: PHYSICIAN: ESTRELLA TIRADO RESOURCE: ESTRELLA TIRADO REASON FOR APPOINTMENT 1. POST BOTOX HISTORY OF PRESENT ILLNESS HISTORY OF PRESENT ILLNESS: PAIN THE PATIENT DESCRIBES THE PAIN... FALL RISK SCREENING: SCREENING :NO FALLS IN THE PAST YEAR TODAY'S VISIT: NOTES: S/P BOTOX ON 10/01/16 FOR CHRONIC MIGRAINE PREVENTION. NOTES HEADACHES CURRENTLY ARE DAILY AND ARE QUITE SEVERE AND RATES THEN 5-7/10. HEADACHES ARE PERSISTANT OVER LEFT EYE. HAS SIGNIFICANT PHOTOPHOBIBIA, SMELLS ARE A TRIGGER. . IS HAVING INCREASED PAIN IN LEGS, AND ACROSS THE HIPS R>L. DOES NOT FEEL PREDNISONE IS WORKING WELL. TO BE SEEN BY OPTHAMOLOGY. TO HAVE THYROID BIOPSY. HAS BEEN ABLE TO GET ABOUT 6 HOURS SLEEP. SLEEP BRINGS HEADACHE RELIEF. IS PERSISTANTLY NAUSEATED. IS STILL WAITING ON BEHAVIORAL HEALTH TO HELP WITH SLEEEP AND ANXIETY.. CURRENT MEDICATIONS TAKING DRISDOL 63845 UNIT CAPSULE 1 CAPSULE ORALLY ONCE WEEKLY TAKING AMLODIPINE BESYLATE 5 MG TABLET 1 TABLET ORALLY TWICE A DAY TAKING ASPIRIN ADULT LOW DOSE 81 MG TABLET DELAYED RELEASE 1 TABLET ORALLY ONCE A DAY TAKING ATORVASTATIN CALCIUM 40 MG TABLET 1 TABLET ORALLY ONCE A DAY TAKING CALCIUM 1200+D3 600-40-500 MG-MG-UNIT TABLET EXTENDED RELEASE 24 HOUR ORALLY ONCE DAILY TAKING COLACE 100 MG CAPSULE 1 CAPSULE NEEDED ORALLY BID TAKING CYMBALTA 60 MG CAPSULE DELAYED RELEASE PARTICLES 1 CAPSULE ORALLY ONCE A DAY TAKING EFFIENT 10 MG TABLET 1 TABLET ORALLY ONCE A DAY (CESAR) TAKING HOSPITAL BED _ MISCELLANEOUS 1 ICD: M25.50, M79.1 DAILY TAKING IRBESARTAN-HYDROCHLOROTHIAZIDE 150-12.5 MG TABLET 1 TABLET ORALLY TWICE DAILY/DR CESAR TAKING LORATADINE 10 MG TABLET 1 TABLET ORALLY ONCE A DAY NEEDED TAKING [id number] 50-325-40 MG TABLET 1 TABLET NEEDED ORALLY EVERY 4 HRS PRN HEADACHE MDD=3 TAKING PREDNISONE 20 MG TABLET 1 TABLET ORALLY ONCE A DAY TAKING MORPHINE SULFATE 15 MG TABLET 1 TABLET NEEDED ORALLY TWICE DAILY PRN PAIN MDD=2 TAKING MORPHINE SULFATE ER 30 MG TABLET EXTENDED RELEASE 1 TABLET ORALLY EVERY 8 HRS CHRONIC PAIN MDD=3 NOT-TAKING ATIVAN 0.5 MG TABLET 1 TABLET ORALLY TAKE ONE HOUR PRIOR TO TEST, AND ON ON ARRIVAL TO TEST LOCATION MDD=2, NOTES: 09-29-16 MEDICATION LIST REVIEWED AND RECONCILED WITH THE PATIENT PAST MEDICAL HISTORY FIBROMYALGIA OSTEOPOROSIS HEREDITARY SPHEROCYTOSIS S/P SPLENECTOMY HYPERTHYROIDISM / NODULAR THYROID SC - 2012 S/P STENTING ENDOMETRIOSIS S/P MISSY / BSO RHEUMATOID ARTHRITIS R HAND NUMBNESS / PARESTHESIAS OBSTRUCTIVE SLEEP APNEA DYSLIPIDEMIA ALLERGIC RHINITIS ANXIETY HYPERTENSION POLYMYALGIA RHEUMATICA SPHEROCYTOSIS ALLERGIES GABAPENTIN: MIGRAINES: ALLERGY LYRICA: FEET SWELLING: ALLERGY NORTRIPTYLINE HCL: ITCHING/RASH: ALLERGY IMITREX: SEVERE HYPERTENSION: SIDE EFFECTS SOCIAL HISTORY GENERAL: TOBACCO USE ARE YOU A:CURRENT SMOKER HOW MANY CIGARETTES A DAY DO YOU SMOKE?6-10 HOW SOON AFTER YOU WAKE UP DO YOU SMOKE YOUR FIRST CIGARETTE?AFTER 60 MIN HOW OFTEN DO YOU SMOKE CIGARETTES?EVERY DAY PATIENT COUNSELED ON THE DANGERS OF TOBACCO USE AND URGED TO QUIT:10/26/2016 ARE YOU INTERESTED IN QUITTING?THINKING ABOUT QUITTING PREVIOUS QUIT ATTEMPTS?YES, WITHIN THE LAST 6 MONTHS. COUNSELED THE PATIENT ON SMOKING CESSATION, EDUCATION [id number]/04/2017 PAIN CLINIC PFS, CLERGY, PUBLIC HEALTH REFERRALS CLERGY REFERRAL NEEDED?NO WAS THE PROVIDER NOTIFIED OF ANY PERTINENT INFO?NO PFS REFERRAL NEEDED?NO PUBLIC HEALTH REFERRAL NEEDED?NO PATIENT: ____. REVIEW OF SYSTEMS CONSTITUTIONAL: ANY CHANGE IN YOUR MEDICAL CONDITION? NO . CHILLS NO . FEVER NO . INFECTION: DO YOU HAVE NEW INFECTIONS? NO . DO YOU HAVE HISTORY OF MRSA? NO . MUSCULOSKELETAL: ANY NEW PATTERNS OF PAIN OR NUMBNESS? YES, LEGS ARE ACHING HORRIBLE,FEELS LIKE THERE IS A RUBBERBAND STRETCHED AROUND THE TOP OF HER THIGHS AND TWISTING IT. LASTS APPROX 1/2-1 HR. GETTING THIS A COUPLE OF TIMES A DAY FOR THE PAST COUPLE OF WEEKS . GASTROENTEROLOGY: ANY NEW CHANGE IN BOWEL CONTROL? NO . GENITOURINARY: ANY NEW CHANGE IN BLADDER CONTROL? NO . IS THERE A CHANCE YOU COULD BE ? NO . HEMATOLOGY/LYMPH: DO YOU TAKE ANY BLOOD THINNERS? (FOR EXAMPLE- COUMADIN, PLAVIX, AGGRENOX, PLATEL, PRADAXA, OR XARELTO) YES, EFFIENT . WHEN WAS YOUR LAST DOSE? DATE: TIME: 10/26/16 1200 . NEUROLOGY: HAVE YOU FALLEN IN THE PAST 6 MONTHS? NO . ANY NEW EXTREMITY NUMBNESS OR WEAKNESS? NO . CARDIOLOGY: DO YOU HAVE A PACEMAKER OR DEFIBRILLATOR? NO . RESPIRATORY: HAVE YOU BEEN SICK IN THE PAST WEEK? NO . FEVER NO . FLU LIKE SYMPTOMS? NO . COUGH NO . INTEGUMENTARY: DO YOU HAVE ANY RASHES OR OPEN SORES? NO . ALLERGIC/IMMUNO: ARE YOU ALLERGIC TO SHELLFISH OR IV DYE? NO . ANY NEW ALLERGIES? NO . PSYCHIATRIC: DO YOU HAVE THOUGHTS OF HURTING YOURSELF OR SOMEONE ELSE? NO . ARE YOU ABUSED, NEGLECTED, OR IN AN UNSAFE ENVIRONMENT? NO . ENDOCRINOLOGY: ARE YOU DIABETIC? YES, DIET CONTROLLED . OTHER: DO YOU NEED ANY PRESCRIPTIONS? NO . IF YES, PLEASE LIST: ____ . ANY NEW PROBLEMS WITH YOUR MEDICATIONS? NO . WHEN DID YOU LAST EAT? ____ . WHEN DID YOU LAST DRINK? ____ . WHAT DID YOU LAST DRINK? ____ . NAME OF PERSON DRIVING YOU HOME? ____ . DO YOU HAVE ANY OTHER QUESTIONS OR CONCERNS WANTS TO TALK ABOUT SOMETHING FOR NAUSEA, ZOFRAN NOT EFFECTIVE . REVIEWED BY: PROVIDER: ESTRELLA PAULA . VITAL SIGNS WT 162.4 LBS, HT 61.25 IN, BMI 30.43 INDEX, BP 160/80 MANUAL, HR 84 /MIN, RR 18 /MIN, TEMP 97.7 F, OXYGEN SAT % 95%, NA INITIALS TL 1533, REVIEWED BY: ADELEVATED BP 160/80, PATIENT HAS HAD INCREASED PAIN AND ALSO LOST HER SISTER RECENTLY- TL. EXAMINATION GENERAL EXAMINATION: PSYCHORIENTED X 3 , ALERT , TALKATIVE. SMILING TODAY. LUNGS:CLEAR TO AUSCULTATION BILATERALLY. HEART:HEART RATE REGULAR, RAPID. MUSCULOSKELETAL:TRIGGER POINTS AND TIGHT FIBROUS BANDS IDENTIFIED OVER CERVICAL PARASPINOUS MUSCLES AND ACROSS TRAPEZIUS MUSCLES BILATERALLY. RESTRICTION OF ROM IN THIS AREA. EXTREMITIES:ECCYMOTIC AREAS NOTED OVER BILATERAL FOREARMS. NEUROLOGIC EXAM:CN'S II-XII GROSSLY INTACT, EOM'S INTACT WITHOUT NYSTAGMUS. MINIMAL TENDERNESS TO PALPATION OVER BILATER OCCIPITAL NOTCH REGIONS.GOOD SHOULDER SHRUG. SPEACH NONDYSARTHRIC. TONGUE PROTRUDES AT MIDLINE. PHOTOPHOBIC. ASSESSMENTS MIGRAINE WITHOUT AURA AND WITHOUT STATUS MIGRAINOSUS, NOT INTRACTABLE - G43.009 (PRIMARY) POLYMYALGIA RHEUMATICA SYNDROME - M35.3 MYALGIA - M79.1 TREATMENT MIGRAINE WITHOUT AURA AND WITHOUT STATUS MIGRAINOSUS, NOT INTRACTABLE START PROMETHAZINE HCL TABLET, 25 MG, 1 TABLET NEEDED, ORALLY, EVERY 12 HRS PRN NAUSEA, 30 DAY(S), 30, REFILLS 1 REFILL ATIVAN TABLET, 0.5 MG, 1 TABLET, ORALLY, TAKE ONE HOUR PRIOR TO TEST, AND ON ON ARRIVAL TO TEST LOCATION MDD=2, 1 DOSE(S), 2, REFILLS 0 NOTES: TRY PHENERGAN FOR NAUSEA - MAX 1 PER DAY. CLINICAL NOTES: ISTOP REGISTRY REVIEWED AND DEMNOSTRATES COMPLLIANCE. BRINGS IN MEDICATIONS WHICH IS APPROPRIATE FOR WHAT WAS DISPENSED. RECENT URINE TOXICOLOGY REVIEWED. NO UNAUTHORIZED MEDICATIONS. NO ILLICIT SUBSTANCES AND PRESCRIBED MEDICATIONS WERE PRESENT. PROCEDURE CODES FA211 ESTABILISHED PATIENT [facility] FACILITY CHARGE G8730 PAIN ASSESS POS TOOL F/U PLAN DOC G8427 DOC MEDS VERIFIED W/PT OR RE DISPOSITION & COMMUNICATION FOLLOW UP MID MAY ELECTRONICALLY SIGNED BY ROBYN BARRIENTOS ON 11/08/2016 AT 08:43 AM EDT DISCLAIMER : THIS IS A VISIT SUMMARY EXTRACTED FROM THE [employer] CHART. IT IS NOT A COPY OF THE [employer] PROGRESS NOTE. NOLAN
== END | disposition home or self-care (01) ==
LOC: M PAIN 15:00
PROVIDERS: ATTEND Nurse Practitioner Family
DX: G89.29 Other chronic pain (principal); G43.009 Migraine without aura, not intractable, without status migrainosus; M35.3 Polymyalgia rheumatica; M79.1 Myalgia; E11.9 Type 2 diabetes mellitus without complications; E03.9 Hypothyroidism, unspecified; I10 Essential (primary) hypertension; F41.9 Anxiety disorder, unspecified; M06.9 Rheumatoid arthritis, unspecified; M19.90 Unspecified osteoarthritis, unspecified site; N80.9 Endometriosis, unspecified; G47.33 Obstructive sleep apnea (adult) (pediatric); Z79.899 Other long term (current) drug therapy; Z79.82 Long term (current) use of aspirin; Z79.52 Long term (current) use of systemic steroids; Z88.8 Allergy status to other drugs, medicaments and biological substances; F17.210 Nicotine dependence, cigarettes, uncomplicated

== ENCOUNTER → 2016-11-02 | Outpatient (CLI) | payer MEDICARE ==
[~2016-11-02] MED LIST changes: +LIDOCAINE 1% MDV 20ML VIAL As Ordered ONE
--- NOTE | 2016-11-02 17:14 | REP ---
ULTRASOUND GUIDED BILATERAL THYROID BIOPSY: The procedure was performed under the direct supervision of Dr. Avery. The patient has a history of multinodular goiter seen on a previous ultrasound performed on 08/17/2016. The risks and benefits of the procedure were explained to the patient and informed consent was obtained. The largest nodule on the right and left sides of the thyroid were localized using ultrasound guidance. The skin was prepped and draped in a sterile fashion. 1% lidocaine was used a local anesthetic. The left thyroid nodule was addressed first. Using ultrasound guidance, four fine needle aspirations were obtained using 25-gauge needles. The right thyroid nodule was then addressed. Using ultrasound guidance, four fine needle aspirations were obtained using 25-gauge needles. All samples were sent to the lab for analysis. The patient tolerated the procedure well and there were no immediate complications. After the appropriate amount of monitored convalescence the patient was discharged from the department. Reviewed by CANDACE Motley 11/03/2016 05:05 PEdited and Signed by Khanh Avery MD 11/04/2016 12:55 P
== END ==
LOC: M RADPRO 12:06
PROVIDERS: ATTEND Family Medicine
DX: D34 Benign neoplasm of thyroid gland (principal); I10 Essential (primary) hypertension; E78.5 Hyperlipidemia, unspecified; J44.9 Chronic obstructive pulmonary disease, unspecified; M79.7 Fibromyalgia; M81.0 Age-related osteoporosis without current pathological fracture; M06.9 Rheumatoid arthritis, unspecified; F41.9 Anxiety disorder, unspecified; Z72.0 Tobacco use; Z79.82 Long term (current) use of aspirin; Z79.52 Long term (current) use of systemic steroids; Z79.899 Other long term (current) drug therapy; Z88.8 Allergy status to other drugs, medicaments and biological substances

== ENCOUNTER → 2016-12-02 | Outpatient (CLI) | payer MEDICARE ==
[~2016-12-02] MED LIST changes: -LIDOCAINE 1% MDV 20ML VIAL As Ordered ONE
--- NOTE | 2016-12-16 01:15 | ECWPNPC ---
PATIENT NAME: HASEEB KURTZ : 1955 GENDER: FEMALE VISIT DATE: 12/02/2016 DISCHARGE DATE: 12/02/16 1440 VISIT LOCKED DATE TIME: PHYSICIAN: ESTRELLA TIRADO RESOURCE: ESTRELLA TIRADO HISTORY OF PRESENT ILLNESS HISTORY OF PRESENT ILLNESS: PAIN THE PATIENT DESCRIBES THE PAIN... FALL RISK SCREENING: SCREENING :NO FALLS IN THE PAST YEAR TODAY'S VISIT: NOTES: HAS SEEN BH - STARTED ON HYROXYZINE AND THIS HAS PRODUCED SLEEP AND SOME DROZINESS. IS FELING PAIN NOW ONLY ON THE IGHT WITH A TOURNIQUET LIKE SENSATION AROUND RIGHT THIGH. HAD BOTOX ON TOOK SOME TIME TO WORK BUT OVER LAST 2 WEEKS NEIL'S HAVE BEEN MUCH IMPROVED. FOR 1ST MONTH MIGRAINES DAILY WITH 8-12 HOURS DURATION. IN LAST 2 WEEK QDAILY BUT INTENSTY 08/03 AND RESPONDS QUICKLY TO BUTALBUTAL.. CURRENT MEDICATIONS TAKING DRISDOL 24492 UNIT CAPSULE 1 CAPSULE ORALLY ONCE WEEKLY TAKING ASPIRIN ADULT LOW DOSE 81 MG TABLET DELAYED RELEASE 1 TABLET ORALLY ONCE A DAY TAKING ATORVASTATIN CALCIUM 40 MG TABLET 1 TABLET ORALLY ONCE A DAY TAKING CALCIUM 1200+D3 600-40-500 MG-MG-UNIT TABLET EXTENDED RELEASE 24 HOUR ORALLY ONCE DAILY TAKING COLACE 100 MG CAPSULE 1 CAPSULE NEEDED ORALLY BID TAKING CYMBALTA 60 MG CAPSULE DELAYED RELEASE PARTICLES 1 CAPSULE ORALLY ONCE A DAY TAKING EFFIENT 10 MG TABLET 1 TABLET ORALLY ONCE A DAY (CESAR) TAKING HOSPITAL BED _ MISCELLANEOUS 1 ICD: M25.50, M79.1 DAILY TAKING IRBESARTAN-HYDROCHLOROTHIAZIDE 150-12.5 MG TABLET 1 TABLET ORALLY TWICE DAILY/DR CESAR TAKING LORATADINE 10 MG TABLET 1 TABLET ORALLY ONCE A DAY NEEDED TAKING PROMETHAZINE HCL 25 MG TABLET 1 TABLET NEEDED ORALLY EVERY 12 HRS PRN NAUSEA TAKING ATIVAN 0.5 MG TABLET 1 TABLET ORALLY TAKE ONE HOUR PRIOR TO TEST, AND ON ON ARRIVAL TO TEST LOCATION MDD=2 TAKING MORPHINE SULFATE ER 30 MG TABLET EXTENDED RELEASE 1 TABLET ORALLY EVERY 8 HRS CHRONIC PAIN MDD=3 TAKING [id number] 50-325-40 MG TABLET 1 TABLET NEEDED ORALLY EVERY 4 HRS PRN HEADACHE MDD=3 TAKING PREDNISONE 10 MG TABLET 1 TABLET ORALLY ONCE A DAY TAKING AMLODIPINE BESYLATE 5 MG TABLET 1 TABLET ORALLY TWICE A DAY TAKING NYSTATIN 6 MU/GM POWDER TOPICALLY TO AFFECTED AREA TOPICALLY FOUR TIMES A DAY TAKING MORPHINE SULFATE 15 MG TABLET 1 TABLET NEEDED ORALLY TWICE DAILY PRN PAIN MDD=2 TAKING HYDROXYZINE HCL 10 MG TABLET 1 TAB ORALLY FOUR TIMES DAILY MEDICATION LIST REVIEWED AND RECONCILED WITH THE PATIENT PAST MEDICAL HISTORY FIBROMYALGIA OSTEOPOROSIS HEREDITARY SPHEROCYTOSIS S/P SPLENECTOMY HYPERTHYROIDISM / NODULAR THYROID - 2011 S/P STENTING ENDOMETRIOSIS S/P MISSY / BSO RHEUMATOID ARTHRITIS R HAND NUMBNESS / PARESTHESIAS OBSTRUCTIVE SLEEP APNEA DYSLIPIDEMIA ALLERGIC RHINITIS ANXIETY HYPERTENSION POLYMYALGIA RHEUMATICA SPHEROCYTOSIS ALLERGIES GABAPENTIN: MIGRAINES: ALLERGY LYRICA: FEET SWELLING: ALLERGY NORTRIPTYLINE HCL: ITCHING/RASH: ALLERGY IMITREX: SEVERE HYPERTENSION: SIDE EFFECTS SURGICAL HISTORY SPLENECTOMY LAD STENT PLACEMENT 04/2012 APPENDECTOMY MISSY/BSO AGE 34 BLADDER SLING CHOLECYSTECTOMY LUMPECTOMY R BREAST BY DR SMITH 09/2014 HOSPITALIZATION/MAJOR DIAGNOSTIC PROCEDURE SURGERIES REVIEW OF SYSTEMS CONSTITUTIONAL: ANY CHANGE IN YOUR MEDICAL CONDITION? NO. PT STATES SHE IS HERE FOR F/U OF PAIN. PT STATES SHE HAD BOTOX INJECTIONS FOR [place] OF MIGRAINES. PT STATES THAT IN THE PAST 2 WEEKS, MIGRAINES HAVE DECREASED IN INTENSITY DRAMATICALLY. . CHILLS NO . FEVER NO . INFECTION: DO YOU HAVE NEW INFECTIONS? NO . DO YOU HAVE HISTORY OF MRSA? NO . MUSCULOSKELETAL: ANY NEW PATTERNS OF PAIN OR NUMBNESS? NO . GASTROENTEROLOGY: ANY NEW CHANGE IN BOWEL CONTROL? NO . GENITOURINARY: ANY NEW CHANGE IN BLADDER CONTROL? NO . IS THERE A CHANCE YOU COULD BE ? NO . HEMATOLOGY/LYMPH: DO YOU TAKE ANY BLOOD THINNERS? (FOR EXAMPLE- COUMADIN, PLAVIX, AGGRENOX, PLATEL, PRADAXA, OR XARELTO) YES. EFFIENT . WHEN WAS YOUR LAST DOSE? DATE: TIME: . NEUROLOGY: HAVE YOU FALLEN IN THE PAST 6 MONTHS? NO . ANY NEW EXTREMITY NUMBNESS OR WEAKNESS? NO . CARDIOLOGY: DO YOU HAVE A PACEMAKER OR DEFIBRILLATOR? NO . RESPIRATORY: HAVE YOU BEEN SICK IN THE PAST WEEK? NO . FEVER NO . FLU LIKE SYMPTOMS? NO . COUGH NO . INTEGUMENTARY: DO YOU HAVE ANY RASHES OR OPEN SORES? NO . ALLERGIC/IMMUNO: ARE YOU ALLERGIC TO SHELLFISH OR IV DYE? NO . ANY NEW ALLERGIES? NO . PSYCHIATRIC: DO YOU HAVE THOUGHTS OF HURTING YOURSELF OR SOMEONE ELSE? NO . ARE YOU ABUSED, NEGLECTED, OR IN AN UNSAFE ENVIRONMENT? NO . ENDOCRINOLOGY: THYROID DISEASE HAD 6 - 8 BIOPSY OF THYROID. HAD BRUISING AND PAIN AFTER. . ARE YOU DIABETIC? NO . OTHER: DO YOU NEED ANY PRESCRIPTIONS? NO . IF YES, PLEASE LIST: ____ . ANY NEW PROBLEMS WITH YOUR MEDICATIONS? NO . WHEN DID YOU LAST EAT? ____ . WHEN DID YOU LAST DRINK? ____ . WHAT DID YOU LAST DRINK? ____ . NAME OF PERSON DRIVING YOU HOME? ____ . DO YOU HAVE ANY OTHER QUESTIONS OR CONCERNS NO . REVIEWED BY: PROVIDER: ESTRELLA PAULA . VITAL SIGNS WT 159.6 LBS, HT 61.25 IN, BMI 29.91 INDEX, BP 124/55 MM HG, HR 68 /MIN, RR 18 /MIN, TEMP 98.3 F, OXYGEN SAT % 94%, NA INITIALS AW 1321. EXAMINATION GENERAL EXAMINATION: PSYCHORIENTED X 3 , ALERT , TALKATIVE. SMILING TODAY. LUNGS:CLEAR TO AUSCULTATION BILATERALLY. HEART:HEART RATE REGULAR, RAPID. MUSCULOSKELETAL:TRIGGER POINTS AND TIGHT FIBROUS BANDS IDENTIFIED OVER CERVICAL PARASPINOUS MUSCLES AND ACROSS TRAPEZIUS MUSCLES BILATERALLY. RESTRICTION OF ROM IN THIS AREA. EXTREMITIES:ECCYMOTIC AREAS NOTED OVER BILATERAL FOREARMS. NEUROLOGIC EXAM:CN'S II-XII GROSSLY INTACT, EOM'S INTACT WITHOUT NYSTAGMUS. MINIMAL TENDERNESS TO PALPATION OVER BILATER OCCIPITAL NOTCH REGIONS.GOOD SHOULDER SHRUG. SPEACH NONDYSARTHRIC. TONGUE PROTRUDES AT MIDLINE. PHOTOPHOBIC. ASSESSMENTS MIGRAINE WITHOUT AURA AND WITHOUT STATUS MIGRAINOSUS, NOT INTRACTABLE - G43.009 (PRIMARY) POLYMYALGIA RHEUMATICA SYNDROME - M35.3 MYALGIA - M79.1 TREATMENT MIGRAINE WITHOUT AURA AND WITHOUT STATUS MIGRAINOSUS, NOT INTRACTABLE CHEMODENERVATION (BOTOX) MISC-MIGRAINE HEADACHESLUISESTRELLA SANCHEZ Tony 12/02/2016 2:21:51 PM > BOTOX DUE 01/01/17 NOTES: TRY CUTTING HYDROYZINE IN 07/26. CONTINUE CURRENT MEDSDO NOT STOP EFFIENT FOR BOTOX. PREVENTIVE MEDICINE PAIN CLINIC TEACHING: PROCEDURE TEACHING BOTOX INJECTIONS REVIEWED WITH PT. PT HAS HAD BOTOX INJECTIONS WITH US BEFORE AND IS FAMILIAR WITH PROCEDURE. PT EXPRESSES UNDERSTANDING.. PROCEDURE CODES FA211 ESTABILISHED PATIENT [facility] FACILITY CHARGE L3359 PAIN ASSESS POS TOOL F/U PLAN DOC G8427 DOC MEDS VERIFIED W/PT OR RE DISPOSITION & COMMUNICATION FOLLOW UP AFTER INJECTION (REASON: CHECK AUTH FOR BOTOX FOR 01/01/17) ELECTRONICALLY SIGNED BY ROBYN BARRIENTOS ON 12/14/2016 AT 09:09 AM EDT DISCLAIMER : THIS IS A VISIT SUMMARY EXTRACTED FROM THE [employer] CHART. IT IS NOT A COPY OF THE [employer] PROGRESS NOTE. MTDD
== END | disposition home or self-care (01) ==
LOC: M PAIN 13:20
PROVIDERS: ATTEND Nurse Practitioner Family
DX: G89.29 Other chronic pain (principal); G43.009 Migraine without aura, not intractable, without status migrainosus; M35.3 Polymyalgia rheumatica; M79.1 Myalgia; I10 Essential (primary) hypertension; F41.9 Anxiety disorder, unspecified; G47.33 Obstructive sleep apnea (adult) (pediatric); M81.0 Age-related osteoporosis without current pathological fracture; E05.90 Thyrotoxicosis, unspecified without thyrotoxic crisis or storm; I25.2 Old myocardial infarction; Z95.5 Presence of coronary angioplasty implant and graft; M06.9 Rheumatoid arthritis, unspecified; J30.89 Other allergic rhinitis; D58.0 Hereditary spherocytosis; E78.5 Hyperlipidemia, unspecified; Z79.899 Other long term (current) drug therapy; Z79.82 Long term (current) use of aspirin; Z79.51 Long term (current) use of inhaled steroids; Z88.8 Allergy status to other drugs, medicaments and biological substances; F17.210 Nicotine dependence, cigarettes, uncomplicated

== ENCOUNTER → 2016-12-31 | Outpatient (CLI) | payer MEDICARE ==
[~2016-12-31] MED LIST changes: +BOTULINUM INJ 100 UNITS (J0585) IM ONE; +diazePAM 5 MG TAB As Ordered ONE
--- NOTE | 2017-01-09 23:54 | ECWPNPC ---
PATIENT NAME: HASEEB KURTZ : 1955 GENDER: FEMALE VISIT DATE: 12/31/2016 DISCHARGE DATE: 12/31/16 1328 VISIT LOCKED DATE TIME: PHYSICIAN: GABRIELLE PALOMARES RESOURCE: GABRIELLE PALOMARES REASON FOR APPOINTMENT 1. BOTOX HISTORY OF PRESENT ILLNESS HISTORY OF PRESENT ILLNESS: PAIN THE PATIENT DESCRIBES THE PAIN... FALL RISK SCREENING: SCREENING :NO FALLS IN THE PAST YEAR CURRENT MEDICATIONS TAKING DRISDOL 10332 UNIT CAPSULE 1 CAPSULE ORALLY ONCE WEEKLY, NOTES: 12/29/16 TAKING ASPIRIN ADULT LOW DOSE 81 MG TABLET DELAYED RELEASE 1 TABLET ORALLY ONCE A DAY, NOTES: 12/30/16@1500 TAKING ATORVASTATIN CALCIUM 40 MG TABLET 1 TABLET ORALLY ONCE A DAY, NOTES: 12/30/16 1700 TAKING CALCIUM 1200+D3 600-40-500 MG-MG-UNIT TABLET EXTENDED RELEASE 24 HOUR ORALLY ONCE DAILY, NOTES: 12/30/16@1700 TAKING COLACE 100 MG CAPSULE 1 CAPSULE NEEDED ORALLY BID, NOTES: 12/28/16 TAKING CYMBALTA 60 MG CAPSULE DELAYED RELEASE PARTICLES 1 CAPSULE ORALLY ONCE A DAY, NOTES: 12/30/16@1500 TAKING EFFIENT 10 MG TABLET 1 TABLET ORALLY ONCE A DAY (CESAR), NOTES: 12/30/16@1500 TAKING HOSPITAL BED _ MISCELLANEOUS 1 ICD: M25.50, M79.1 DAILY TAKING IRBESARTAN-HYDROCHLOROTHIAZIDE 150-12.5 MG TABLET 1 TABLET ORALLY TWICE DAILY/DR GUERRERO, NOTES: 12/30/16@1600 TAKING LORATADINE 10 MG TABLET 1 TABLET ORALLY ONCE A DAY NEEDED, NOTES: 12/30/16@1600 TAKING PROMETHAZINE HCL 25 MG TABLET 1 TABLET NEEDED ORALLY EVERY 12 HRS PRN NAUSEA, NOTES: 11/2016 TAKING ATIVAN 0.5 MG TABLET 1 TABLET ORALLY TAKE ONE HOUR PRIOR TO TEST, AND ON ON ARRIVAL TO TEST LOCATION MDD=2, NOTES: 11/2016 TAKING [id number] 50-325-40 MG TABLET 1 TABLET NEEDED ORALLY EVERY 4 HRS PRN HEADACHE MDD=3, NOTES: 12/31/16@0700 TAKING PREDNISONE 10 MG TABLET 1 TABLET ORALLY ONCE A DAY, NOTES: 12/31/16 @0800 TAKING AMLODIPINE BESYLATE 5 MG TABLET 1 TABLET ORALLY TWICE A DAY, NOTES: 11/2016 TAKING NYSTATIN 6 MU/GM POWDER TOPICALLY TO AFFECTED AREA TOPICALLY FOUR TIMES A DAY, NOTES: 12/31/16@0700 TAKING HYDROXYZINE HCL 10 MG TABLET 1 TAB ORALLY FOUR TIMES DAILY, NOTES: 11/2016 TAKING MORPHINE SULFATE ER 30 MG TABLET EXTENDED RELEASE 1 TABLET ORALLY EVERY 8 HRS CHRONIC PAIN MDD=3, NOTES: 12/31/16@0700 TAKING MORPHINE SULFATE 15 MG TABLET 1 TABLET NEEDED ORALLY TWICE DAILY PRN PAIN MDD=2, NOTES: 12/30/16@1700 MEDICATION LIST REVIEWED AND RECONCILED WITH THE PATIENT PAST MEDICAL HISTORY FIBROMYALGIA OSTEOPOROSIS HEREDITARY SPHEROCYTOSIS S/P SPLENECTOMY HYPERTHYROIDISM / NODULAR THYROID - 2011 S/P STENTING ENDOMETRIOSIS S/P MISSY / BSO RHEUMATOID ARTHRITIS R HAND NUMBNESS / PARESTHESIAS OBSTRUCTIVE SLEEP APNEA DYSLIPIDEMIA ALLERGIC RHINITIS ANXIETY HYPERTENSION POLYMYALGIA RHEUMATICA SPHEROCYTOSIS ALLERGIES GABAPENTIN: MIGRAINES: ALLERGY LYRICA: FEET SWELLING: ALLERGY NORTRIPTYLINE HCL: ITCHING/RASH: ALLERGY IMITREX: SEVERE HYPERTENSION: SIDE EFFECTS SURGICAL HISTORY SPLENECTOMY LAD STENT PLACEMENT 04/2012 APPENDECTOMY MISSY/BSO AGE 34 BLADDER SLING CHOLECYSTECTOMY LUMPECTOMY R BREAST BY DR SMITH 09/2014 HOSPITALIZATION/MAJOR DIAGNOSTIC PROCEDURE SURGERIES REVIEW OF SYSTEMS CONSTITUTIONAL: ANY CHANGE IN YOUR MEDICAL CONDITION? NO . CHILLS NO . FEVER NO . INFECTION: DO YOU HAVE NEW INFECTIONS? NO . DO YOU HAVE HISTORY OF MRSA? NO . MUSCULOSKELETAL: ANY NEW PATTERNS OF PAIN OR NUMBNESS? NO . GASTROENTEROLOGY: ANY NEW CHANGE IN BOWEL CONTROL? NO . GENITOURINARY: ANY NEW CHANGE IN BLADDER CONTROL? NO . IS THERE A CHANCE YOU COULD BE ? NO . HEMATOLOGY/LYMPH: DO YOU TAKE ANY BLOOD THINNERS? (FOR EXAMPLE- COUMADIN, PLAVIX, AGGRENOX, PLATEL, PRADAXA, OR XARELTO) YES, EFFIENT . WHEN WAS YOUR LAST DOSE? DATE: TIME: . NEUROLOGY: HAVE YOU FALLEN IN THE PAST 6 MONTHS? NO . ANY NEW EXTREMITY NUMBNESS OR WEAKNESS? NO . CARDIOLOGY: DO YOU HAVE A PACEMAKER OR DEFIBRILLATOR? NO . RESPIRATORY: HAVE YOU BEEN SICK IN THE PAST WEEK? NO . FEVER NO . FLU LIKE SYMPTOMS? NO . COUGH NO . INTEGUMENTARY: DO YOU HAVE ANY RASHES OR OPEN SORES? NO . ALLERGIC/IMMUNO: ARE YOU ALLERGIC TO SHELLFISH OR IV DYE? NO . ANY NEW ALLERGIES? NO . PSYCHIATRIC: DO YOU HAVE THOUGHTS OF HURTING YOURSELF OR SOMEONE ELSE? NO . ARE YOU ABUSED, NEGLECTED, OR IN AN UNSAFE ENVIRONMENT? NO . ENDOCRINOLOGY: ARE YOU DIABETIC? YES, DIET CONTROLLED . OTHER: DO YOU NEED ANY PRESCRIPTIONS? NO . IF YES, PLEASE LIST: ____ . ANY NEW PROBLEMS WITH YOUR MEDICATIONS? NO . WHEN DID YOU LAST EAT? 12/30/16@1800 . WHEN DID YOU LAST DRINK? TODAY @ 0300 . WHAT DID YOU LAST DRINK? WATER . NAME OF PERSON DRIVING YOU HOME? 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 DO YOU HAVE ANY OTHER QUESTIONS OR CONCERNS NO . REVIEWED BY: PROVIDER: . VITAL SIGNS WT 155.6 LBS, HT 61.25 IN, BMI 29.16 INDEX, BP 149/67 MM HG, HR 86 /MIN, RR 18 /MIN, TEMP 98.4 F, OXYGEN SAT % 96%, SAFE IN ENV? (Y/N) Y, NA INITIALS FL 11:13, REVIEWED BY: EM. ASSESSMENTS MIGRAINE WITHOUT AURA, NOT INTRACTABLE, WITHOUT STATUS MIGRAINOSUS - G43.009 (PRIMARY) PROCEDURES PN BOTOX INJECTIONS SUBSEQUENT INJECTIONS PRE PROCEDURE DIAGNOSIS CHRONIC MIGRAINE HEADACHES. POST PROCEDURE DIAGNOSIS CHRONIC MIGRAINE HEADACHES. PROCEDURE BOTOX INJECTION AT THE HEAD, NECK AND SHOULDERS. SURGEON DR. GABRIELLE PALOMARES PROGRAMMER NONE ANESTHESIA NONE PRE PROCEDURE NOTE THE PATIENT HAS HISTORY OF CHRONIC MIGRAINE HEADACHES. I EVALUATE THE PATIENT AND REVIEWED THE CHART. I WENT OVER THE RISKS, ALTERNATIVES, AND BENEFITS ASSOCIATED WITH THIS PROCEDURE. THE PATIENT WOULD LIKE TO PROCEED AND GIVE CONSENT TO PERFORMED THE PROCEDURE. THE PATIENT DENIES UNEXPLAINABLE WEIGHT LOSS, FEVER, CHILLS, OR NEW CHANGES IN URINARY OR BOWEL CONTROL. THE PATIENT DID A BOTOX INJECTION AT THE HEAD, NECK AND SHOULDERS 3 MONTHS AGO AND EXPRESSED MORE THAN 50% REDUCTION ON THE FREQUENCY AND INTENSITY OF THE HEADACHES. THE PATIENT EXPRESS THAT THE USE OF BOTOX HAS REDUCE SIGNIFICANTLY THE SEVERITY OF THE HEADACHES AND EXPRESSED THAT WANT TO RECEIVE THIS PROCEDURE AGAIN TODAY DESCRIPTION OF PROCEDURE THE PATIENTS WAS BROUGHT TO THE PROCEDURE ROOM AND PLACED IN THE SUPINE POSITION. I CHECKED LATERALITY AND THE AREAS WHERE THE PROCEDURE WAS GOING TO BE PERFORMED WITH THE PATIENT AND THE SUPPORTING STAFF AT THE MOMENT OF THE TIME OUT IN THE PROCEDURE ROOM. FOR THE PROCEDURE I USED A SOLUTION OF 5 UNITS OF BOTOX PER EACH 0.1 ML OF THE SOLUTION. I USED A 30-GAUGE NEEDLE TO INJECT THE SOLUTION AT THE SELECTED LOCATIONS. I INJECTED FIRST THE RIGHT AND LEFT RIG OPERATOR MUSCLES. THE LANDMARK FOR BOTH INJECTIONS WAS APPROXIMATELY 1 CM ABOVE THE SUPERIOR MEDIAL EDGE OF THE EYEBROW. AFTER THESE TWO INJECTIONS, I INJECTED THE PROCERUS MUSCLE AT THE MIDLINE POINT BETWEEN THESE FIRST TWO INJECTIONS. THEN I PROCEEDED TO INJECT THE RIGHT AND LEFT FRONTALIS MUSCLE. TWO INJECTIONS WERE DONE IN EACH SIDE. THE FIRST INJECTION WAS DONE APPROXIMATELY 2 CM ABOVE THE FIRST INJECTION OF THE RIG OPERATOR. THE SECOND INJECTION WAS DONE APPROXIMATELY 1.5 CM LATERAL TO THIS FIST INJECTION OF THE FRONTALIS OF EACH SIDE. AFTER THE INJECTIONS OVER THE FOREHEAD WERE DONE, THE PATIENT'S HEAD WAS TURNED TO THE LEFT SIDE AND WE STARTED TO WORK WITH THE RIGHT TEMPORALIS MUSCLE. FIRST INJECTION WAS DONE IN A VERTICAL LINE OF THE TRAGUS APPROXIMATELY 3 CM ABOVE THE TRAGUS. THE SECOND INJECTION WAS DONE APPROXIMATELY 2 CM ABOVE THE FIRST INJECTION. THE THIRD INJECTION WAS DONE APPROXIMATELY 1 CM FRONT CASTILLO FROM THIS VERTICAL LINE CREATED AT THE LEVEL OF THE TRAGUS, PRISON BETWEEN THESE TWO INJECTIONS. THE FOURTH INJECTION WAS DONE APPROXIMATELY 1.5 CM BACK FROM THE SECOND INJECTION TO THE TEMPORALIS IN LINE TO THE MIDPORTION OF THE EAR. THEN, WE PROCEEDED TO INJECT THE LEFT TEMPORALIS MUSCLE. WE CLEANED THE AREA WITH ALCOHOL AND PROCEEDED TO PERFORM THE SAME FOR INJECTIONS DESCRIBED ABOVE BUT IN THE LEFT TEMPORALIS MUSCLE USING THE SAME LANDMARKS. AFTER THESE INJECTIONS WERE DONE, THE PATIENT WAS SEATED. FIRST, WE STARTED TO INJECT THE LEFT AND RIGHT OCCIPITALIS MUSCLE. I INJECTED AT THE FOLLOWING PLACES IN THE RIGHT AND LEFT MUSCLE. THE FIRST INJECTION WAS DONE AT THE MIDPOINT POSITION BETWEEN THE MASTOID PROCESS AND THE INION OF THE OCCIPITAL PROTUBERANCE. THE SECOND INJECTION WAS DONE APPROXIMATELY 1.5 CM SUPERIOR AND LATERAL OF THIS POINT. THE THIRD INJECTION WAS DONE APPROXIMATELY 1.5 CM SUPERIOR AND MEDIAL TO THIS FIRST INJECTION. THEN, I PROCEEDED TO INJECT THE RIGHT AND LEFT PARASPINAL MUSCLES. LANDMARK OF THE INJECTION WERE APPROXIMATELY: FIRST INJECTION 3 CM BELOW THE INION AND 1 CM LATERAL TO THE MIDLINE AND SECOND INJECTION AT EACH SIDE WAS DONE APPROXIMATELY 1.5 CM SUPERIOR AND LATERAL OF THE FIRST INJECTION. THE LAST GROUP OF INJECTIONS WAS DONE OVER THE RIGHT AND LEFT TRAPEZIUS MUSCLE OVER THE SHOULDERS AREA. THE FIRST INJECTION WAS DONE AT THE MIDPOINT BETWEEN THE INFLECTION POINT BETWEEN THE NECK AND SHOULDER AND THE ACROMION. THE SECOND AND THIRD INJECTIONS WERE DONE APPROXIMATELY 2.5 CM LATERAL AND MEDIAL FROM THIS FIRST INJECTION. SAME TARGETS WERE USED IN THE RIGHT AND LEFT SIDE. IN TOTAL, I INJECTED 155 UNITS OF BOTOX. PROCEDURE WAS DONE WITHOUT EVIDENCE OF PARESTHESIA, PNEUMOTHORAX, OR ANY COMPLICATIONS. THE PATIENT TOLERATED THE PROCEDURE VERY WELL. THE PATIENT WAS SENT TO THE RECOVERY ROOM FOR OBSERVATIONS. INJECTIONS WERE DONE AFTER CLEANING WITH ALCOHOL, USING ASEPTIC TECHNIQUES POST PROCEDURE NOTE THE PROCEDURE DONE WAS DISCUSSED WITH THE PATIENT. THE PATIENT WILL BE SEEN IN A FOLLOW UP IN THE NEXT FEW WEEKS. INSTRUCTIONS WERE GIVEN, QUESTIONS WERE ANSWERED, AND THE PATIENT EXPRESSED UNDERSTANDING AND AGREES WITH THE PLAN. I, BHARAT LUTZ, DOCUMENTED THE ABOVE INFORMATION ACTING A SCRIBE FOR DR. PALOMARES. I HAVE REVIEWED THE ABOVE DOCUMENT, WRITTEN BY BHARAT LUTZ SCRIBKody AND I VERIFY THAT IT IS ACCURATE PROCEDURE CODES 04978 CHEMODENERV MUSC MIGRAINE [id number] BOTOX COSMETIC 1 UNIT WASTE 45 UNITS DISPOSITION & COMMUNICATION FOLLOW UP 3 WEEKS ELECTRONICALLY SIGNED BY GABRIELLE PALOMARES MD ON 01/09/2017 AT 03:32 PM EDT DISCLAIMER : THIS IS A VISIT SUMMARY EXTRACTED FROM THE [employer] CHART. IT IS NOT A COPY OF THE [employer] PROGRESS NOTE. NOLAN
== END | disposition home or self-care (01) ==
LOC: M PAIN 11:00
PROVIDERS: ATTEND Anesthesiology
DX: G89.29 Other chronic pain (principal); G43.909 Migraine, unspecified, not intractable, without status migrainosus; M79.7 Fibromyalgia; M81.0 Age-related osteoporosis without current pathological fracture; D58.0 Hereditary spherocytosis; E05.90 Thyrotoxicosis, unspecified without thyrotoxic crisis or storm; N80.9 Endometriosis, unspecified; M06.9 Rheumatoid arthritis, unspecified; G47.33 Obstructive sleep apnea (adult) (pediatric); E78.5 Hyperlipidemia, unspecified; F41.9 Anxiety disorder, unspecified; I10 Essential (primary) hypertension; I25.2 Old myocardial infarction; Z79.899 Other long term (current) drug therapy; Z79.82 Long term (current) use of aspirin; Z79.51 Long term (current) use of inhaled steroids; Z79.01 Long term (current) use of anticoagulants; Z88.8 Allergy status to other drugs, medicaments and biological substances
CPT/HCPCS: 64615; J0585

== ENCOUNTER → 2017-02-07 | Outpatient (CLI) | payer MEDICARE ==
[~2017-02-07] MED LIST changes: -BOTULINUM INJ 100 UNITS (J0585) IM ONE; -FOLI1TAB2 PO; +FOLI1TAB4 PO; -HYDR-4274 PO; +HYDR50TA70 PO; -OXYC20TA21 PO; +OXYC20TA40 PO; -PERC10TA17 PO; +PERC10TA26 PO; -SKEL-29 PO; +SKEL800T97 PO; -TRIA-15 PO; +TRIA0.2571 PO; +VOLT1GEL15 TD; -VOLT1GEL24 TD; -diazePAM 5 MG TAB As Ordered ONE
--- NOTE | 2017-02-28 00:01 | ECWPNPC ---
PATIENT NAME: HASEEB KURTZ : 1955 GENDER: FEMALE VISIT DATE: 02/07/2017 DISCHARGE DATE: 02/07/17 1516 VISIT LOCKED DATE TIME: PHYSICIAN: ESTRELLA TIRADO RESOURCE: ESTRELLA TIRADO REASON FOR APPOINTMENT 1. POST PROCEDURE, MIGRANES HISTORY OF PRESENT ILLNESS HISTORY OF PRESENT ILLNESS: PAIN THE PATIENT DESCRIBES THE PAIN... FALL RISK SCREENING: SCREENING :NO FALLS IN THE PAST YEAR TODAY'S VISIT: NOTES: RATES PAIN TODAY 2/10. DESCRIBES PAIN ACHING, TENDER AND THROBBING. NOTES PAIN TODAY OVER OVER THE BODY. IS S/P BOTOX INJECTION FOR CHRONIC MIGRAINE PROPHYLAXIS ON 12/31/16. NOTES HAS HAD NO HEADACHES IN THE LAST MONTH, BUT HAS HAD A FEW PRODROMAL EVENTS WHICH SHE HAS BEEN ABLE TREAT AND PREVENT WITH BUTALBUTAL. FEELS IS GETTING WORSE IN TERMS OF THE INFLAMMATION. HAD TRIAL OF WEAN OF STEROIDS AND COULD NOT TOLERATE THIS LEVEL OF PAIN. HAS BEEN HAVING SEVERE GROIN/HIP PAIN ON RIGHT.. CURRENT MEDICATIONS TAKING DRISDOL 16206 UNIT CAPSULE 1 CAPSULE ORALLY ONCE WEEKLY TAKING ASPIRIN ADULT LOW DOSE 81 MG TABLET DELAYED RELEASE 1 TABLET ORALLY ONCE A DAY TAKING ATORVASTATIN CALCIUM 40 MG TABLET 1 TABLET ORALLY ONCE A DAY TAKING CALCIUM 1200+D3 600-40-500 MG-MG-UNIT TABLET EXTENDED RELEASE 24 HOUR ORALLY ONCE DAILY TAKING COLACE 100 MG CAPSULE 1 CAPSULE NEEDED ORALLY BID TAKING CYMBALTA 60 MG CAPSULE DELAYED RELEASE PARTICLES 1 CAPSULE ORALLY ONCE A DAY TAKING EFFIENT 10 MG TABLET 1 TABLET ORALLY ONCE A DAY (CESAR) TAKING HOSPITAL BED _ MISCELLANEOUS 1 ICD: M25.50, M79.1 DAILY TAKING IRBESARTAN-HYDROCHLOROTHIAZIDE 150-12.5 MG TABLET 1 TABLET ORALLY TWICE DAILY/DR CESAR TAKING LORATADINE 10 MG TABLET 1 TABLET ORALLY ONCE A DAY NEEDED TAKING PROMETHAZINE HCL 25 MG TABLET 1 TABLET NEEDED ORALLY EVERY 12 HRS PRN NAUSEA TAKING ATIVAN 0.5 MG TABLET 1 TABLET ORALLY TAKE ONE HOUR PRIOR TO TEST, AND ON ON ARRIVAL TO TEST LOCATION MDD=2 TAKING [id number] 50-325-40 MG TABLET 1 TABLET NEEDED ORALLY EVERY 4 HRS PRN HEADACHE MDD=3 TAKING PREDNISONE 10 MG TABLET 1 TABLET ORALLY ONCE A DAY TAKING AMLODIPINE BESYLATE 5 MG TABLET 1 TABLET ORALLY TWICE A DAY TAKING NYSTATIN 6 MU/GM POWDER TOPICALLY TO AFFECTED AREA TOPICALLY FOUR TIMES A DAY TAKING HYDROXYZINE HCL 10 MG TABLET 1 TAB ORALLY FOUR TIMES DAILY TAKING MORPHINE SULFATE ER 30 MG TABLET EXTENDED RELEASE 1 TABLET ORALLY EVERY 8 HRS CHRONIC PAIN MDD=3 TAKING MORPHINE SULFATE 15 MG TABLET 1 TABLET NEEDED ORALLY TWICE DAILY PRN PAIN MDD=2 TAKING PREDNISONE 20 MG TABLET 1 TABLET ORALLY ONCE A DAY TAKING MORPHINE SULFATE ER 30 MG TABLET EXTENDED RELEASE 1 TABLET ORALLY Q 8 HRS CHRONIC PAIN MDD=3 TAKING MORPHINE SULFATE 15 MG TABLET 1 TABLET NEEDED ORALLY EVERY 6-8 HRS PRN PAIN MDD=2 MEDICATION LIST REVIEWED AND RECONCILED WITH THE PATIENT PAST MEDICAL HISTORY FIBROMYALGIA OSTEOPOROSIS HEREDITARY SPHEROCYTOSIS S/P SPLENECTOMY HYPERTHYROIDISM / NODULAR THYROID - 2011 S/P STENTING ENDOMETRIOSIS S/P MISSY / BSO RHEUMATOID ARTHRITIS R HAND NUMBNESS / PARESTHESIAS OBSTRUCTIVE SLEEP APNEA DYSLIPIDEMIA ALLERGIC RHINITIS ANXIETY HYPERTENSION POLYMYALGIA RHEUMATICA SPHEROCYTOSIS ALLERGIES GABAPENTIN: MIGRAINES: ALLERGY LYRICA: FEET SWELLING: ALLERGY NORTRIPTYLINE HCL: ITCHING/RASH: ALLERGY IMITREX: SEVERE HYPERTENSION: SIDE EFFECTS REVIEW OF SYSTEMS REVIEWED BY: PROVIDER: ESTRELLA PAULA . CONSTITUTIONAL: ANY CHANGE IN YOUR MEDICAL CONDITION? NO . CHILLS NO . FEVER NO . INFECTION: DO YOU HAVE NEW INFECTIONS? NO . DO YOU HAVE HISTORY OF MRSA? NO . MUSCULOSKELETAL: ANY NEW PATTERNS OF PAIN OR NUMBNESS? NO . GASTROENTEROLOGY: ANY NEW CHANGE IN BOWEL CONTROL? NO . GENITOURINARY: ANY NEW CHANGE IN BLADDER CONTROL? NO . IS THERE A CHANCE YOU COULD BE ? NO . HEMATOLOGY/LYMPH: DO YOU TAKE ANY BLOOD THINNERS? (FOR EXAMPLE- COUMADIN, PLAVIX, AGGRENOX, PLATEL, PRADAXA, OR XARELTO) YES, EFFIENT . WHEN WAS YOUR LAST DOSE? DATE: TIME: 02-06-17 NOON . NEUROLOGY: HAVE YOU FALLEN IN THE PAST 6 MONTHS? YES . ANY NEW EXTREMITY NUMBNESS OR WEAKNESS? NO . CARDIOLOGY: DO YOU HAVE A PACEMAKER OR DEFIBRILLATOR? NO . RESPIRATORY: HAVE YOU BEEN SICK IN THE PAST WEEK? NO . FEVER NO . FLU LIKE SYMPTOMS? NO . COUGH NO . INTEGUMENTARY: DO YOU HAVE ANY RASHES OR OPEN SORES? NO . ALLERGIC/IMMUNO: ARE YOU ALLERGIC TO SHELLFISH OR IV DYE? NO . ANY NEW ALLERGIES? NO . PSYCHIATRIC: DO YOU HAVE THOUGHTS OF HURTING YOURSELF OR SOMEONE ELSE? NO . ARE YOU ABUSED, NEGLECTED, OR IN AN UNSAFE ENVIRONMENT? NO . ENDOCRINOLOGY: ARE YOU DIABETIC? YES . OTHER: DO YOU NEED ANY PRESCRIPTIONS? YES . IF YES, PLEASE LIST: MORPHINE LONG ACTING . ANY NEW PROBLEMS WITH YOUR MEDICATIONS? NO . WHEN DID YOU LAST EAT? ____ . WHEN DID YOU LAST DRINK? ____ . WHAT DID YOU LAST DRINK? ____ . NAME OF PERSON DRIVING YOU HOME? ____ . DO YOU HAVE ANY OTHER QUESTIONS OR CONCERNS NO . VITAL SIGNS WT 151.8 LBS, HT 61.25 IN, BMI 28.45 INDEX, BP 107/63 MM HG, HR 78 /MIN, RR 18 /MIN, TEMP 97.9 F, OXYGEN SAT % 97%, NA INITIALS SC 14:43, REVIEWED BY: NOLA. EXAMINATION GENERAL EXAMINATION: PSYCHORIENTED X 3 , ALERT , TALKATIVE. SMILING TODAY. LUNGS:CLEAR TO AUSCULTATION BILATERALLY. HEART:HEART RATE REGULAR, RAPID. MUSCULOSKELETAL:TRIGGER POINTS AND TIGHT FIBROUS BANDS IDENTIFIED OVER CERVICAL PARASPINOUS MUSCLES AND ACROSS TRAPEZIUS MUSCLES BILATERALLY. RESTRICTION OF ROM IN THIS AREA. EXTREMITIES:ECCYMOTIC AREAS NOTED OVER BILATERAL FOREARMS. NEUROLOGIC EXAM:CN'S II-XII GROSSLY INTACT, EOM'S INTACT WITHOUT NYSTAGMUS. MINIMAL TENDERNESS TO PALPATION OVER BILATER OCCIPITAL NOTCH REGIONS.GOOD SHOULDER SHRUG. SPEACH NONDYSARTHRIC. TONGUE PROTRUDES AT MIDLINE. PHOTOPHOBIC. ASSESSMENTS CHRONIC PAIN SYNDROME - G89.4 (PRIMARY) MIGRAINE WITHOUT AURA, NOT INTRACTABLE, WITHOUT STATUS MIGRAINOSUS - G43.009 (PRIMARY) CHRONIC PRESCRIPTION OPIATE USE - Z79.891 TREATMENT CHRONIC PAIN SYNDROME REFILL MORPHINE SULFATE ER TABLET EXTENDED RELEASE, 30 MG, 1 TABLET, ORALLY, EVERY 8 HRS CHRONIC PAIN MDD=3, 30 DAY(S), 90, REFILLS 0 TRIGGER POINT 3 + ESTRELLA MONTEMAYOR 02/07/2017 3:01:30 PM > LOW BACK - ON ELIQUIS NOTES: CONSIDER RHEUMATOLOGY EVAL IN [place]. CLINICAL NOTES: ISTOP REGISTRY REVIEWED AND DEMNOSTRATES COMPLLIANCE. BRINGS IN MEDICATIONS WHICH IS APPROPRIATE FOR WHAT WAS DISPENSED. RECENT URINE TOXICOLOGY REVIEWED. NO UNAUTHORIZED MEDICATIONS. NO ILLICIT SUBSTANCES AND PRESCRIBED MEDICATIONS WERE PRESENT. PREVENTIVE MEDICINE PAIN CLINIC TEACHING: PROCEDURE TEACHING TRIGGER POINT INJECTIONS INFORMATION REVIEWED WITH PATIENT. NOLA. PROCEDURE CODES FA211 ESTABILISHED PATIENT [facility] FACILITY CHARGE G9030 PAIN ASSESS POS TOOL F/U PLAN DOC G8427 DOC MEDS VERIFIED W/PT OR RE DISPOSITION & COMMUNICATION FOLLOW UP LAST WEEK IN FEBRUARY (REASON: CHECK AUTH FOR TPI/ON PRED AND EFFIENT) ELECTRONICALLY SIGNED BY ROBYN BARRIENTOS ON 02/27/2017 AT 12:21 PM EDT DISCLAIMER : THIS IS A VISIT SUMMARY EXTRACTED FROM THE [employer], a division of [employer] CHART. IT IS NOT A COPY OF THE [employer], a division of [employer] PROGRESS NOTE. NOLAN
== END | disposition home or self-care (01) ==
LOC: M PAIN 14:40
PROVIDERS: ATTEND Nurse Practitioner Family
DX: G89.4 Chronic pain syndrome (principal); G43.009 Migraine without aura, not intractable, without status migrainosus; M79.7 Fibromyalgia; M81.0 Age-related osteoporosis without current pathological fracture; E05.90 Thyrotoxicosis, unspecified without thyrotoxic crisis or storm; I25.2 Old myocardial infarction; Z95.5 Presence of coronary angioplasty implant and graft; M06.9 Rheumatoid arthritis, unspecified; G47.33 Obstructive sleep apnea (adult) (pediatric); F41.9 Anxiety disorder, unspecified; I10 Essential (primary) hypertension; M35.3 Polymyalgia rheumatica; E78.5 Hyperlipidemia, unspecified; D58.0 Hereditary spherocytosis; Z79.899 Other long term (current) drug therapy; Z79.82 Long term (current) use of aspirin; Z79.52 Long term (current) use of systemic steroids; Z79.891 Long term (current) use of opiate analgesic; Z79.01 Long term (current) use of anticoagulants; Z88.8 Allergy status to other drugs, medicaments and biological substances

== ENCOUNTER → 2017-02-23 | Outpatient (CLI) | payer MEDICARE ==
[~2017-02-23] MED LIST changes: +BUPIVACAINE HCL 0.25% 10 ML VIAL As Ordered ONE; +BUPIVACAINE HCL 0.25% 30 ML VIAL As Ordered ONE; +TRIAMCINOLONE ACETONIDE SUSP 40 MG/ML VIAL (J3301) As Ordered ONE; +diazePAM 5 MG TAB As Ordered ONE; +oxyCODONE 5MG TAB As Ordered ONE
--- NOTE | 2017-03-08 00:40 | ECWPNPC ---
PATIENT NAME: HASEEB KURTZ : 1955 GENDER: FEMALE VISIT DATE: 02/23/2017 DISCHARGE DATE: 02/23/17 1519 VISIT LOCKED DATE TIME: PHYSICIAN: GABRIELLE PALOMARES RESOURCE: GABRIELLE PALOMARES REASON FOR APPOINTMENT 1. TPI, LOW BACK HISTORY OF PRESENT ILLNESS HISTORY OF PRESENT ILLNESS: PAIN THE PATIENT DESCRIBES THE PAIN... FALL RISK SCREENING: SCREENING :NO FALLS IN THE PAST YEAR CURRENT MEDICATIONS TAKING DRISDOL 84806 UNIT CAPSULE 1 CAPSULE ORALLY ONCE WEEKLY, NOTES: 02-21-17899 TAKING ASPIRIN ADULT LOW DOSE 81 MG TABLET DELAYED RELEASE 1 TABLET ORALLY ONCE A DAY, NOTES: 02-22-17899 TAKING ATORVASTATIN CALCIUM 40 MG TABLET 1 TABLET ORALLY ONCE A DAY, NOTES: 02-22-17899 TAKING CALCIUM 1200+D3 600-40-500 MG-MG-UNIT TABLET EXTENDED RELEASE 24 HOUR ORALLY ONCE DAILY, NOTES: 02-22-1700 TAKING COLACE 100 MG CAPSULE 1 CAPSULE NEEDED ORALLY BID, NOTES: NOT LATELY TAKING CYMBALTA 60 MG CAPSULE DELAYED RELEASE PARTICLES 1 CAPSULE ORALLY ONCE A DAY, NOTES: 02-22-17899 TAKING EFFIENT 10 MG TABLET 1 TABLET ORALLY ONCE A DAY (CESAR), NOTES: 02-22-17899 TAKING HOSPITAL BED _ MISCELLANEOUS 1 ICD: M25.50, M79.1 DAILY TAKING IRBESARTAN-HYDROCHLOROTHIAZIDE 150-12.5 MG TABLET 1 TABLET ORALLY TWICE DAILY/DR GUERRERO, NOTES: 02-22-17899 TAKING LORATADINE 10 MG TABLET 1 TABLET ORALLY ONCE A DAY NEEDED, NOTES: 02-22-17899 TAKING ATIVAN 0.5 MG TABLET 1 TABLET ORALLY TAKE ONE HOUR PRIOR TO TEST, AND ON ON ARRIVAL TO TEST LOCATION MDD=2, NOTES: NOT LATELY TAKING AMLODIPINE BESYLATE 5 MG TABLET 1 TABLET ORALLY TWICE A DAY, NOTES: 02-20-17899 TAKING NYSTATIN 6 MU/GM POWDER TOPICALLY TO AFFECTED AREA TOPICALLY FOUR TIMES A DAY TAKING MORPHINE SULFATE 15 MG TABLET 1 TABLET NEEDED ORALLY TWICE DAILY PRN PAIN MDD=2, NOTES: 02-23-17899 TAKING MORPHINE SULFATE ER 30 MG TABLET EXTENDED RELEASE 1 TABLET ORALLY Q 8 HRS CHRONIC PAIN MDD=3, NOTES: 02-23-17899 TAKING [id number] 50-325-40 MG TABLET 1 TABLET NEEDED ORALLY EVERY 4 HRS PRN HEADACHE MDD=3, NOTES: 02-22-17899 TAKING ROBAXIN-750 750 MG TABLET 1 TABLET ORALLY EVERY 8 HOURS NEEDED, NOTES: 02-22-17899 TAKING PREDNISONE 20 MG TABLET 1 TABLET ORALLY ONCE A DAY, NOTES: 02-23-17799 NOT-TAKING PROMETHAZINE HCL 25 MG TABLET 1 TABLET NEEDED ORALLY EVERY 12 HRS PRN NAUSEA NOT-TAKING PREDNISONE 10 MG TABLET 1 TABLET ORALLY ONCE A DAY, NOTES: 02-23-17799 NOT-TAKING HYDROXYZINE HCL 10 MG TABLET 1 TAB ORALLY FOUR TIMES DAILY NOT-TAKING MORPHINE SULFATE 15 MG TABLET 1 TABLET NEEDED ORALLY EVERY 6-8 HRS PRN PAIN MDD=2 NOT-TAKING MORPHINE SULFATE ER 30 MG TABLET EXTENDED RELEASE 1 TABLET ORALLY EVERY 8 HRS CHRONIC PAIN MDD=3 MEDICATION LIST REVIEWED AND RECONCILED WITH THE PATIENT PAST MEDICAL HISTORY FIBROMYALGIA OSTEOPOROSIS HEREDITARY SPHEROCYTOSIS S/P SPLENECTOMY HYPERTHYROIDISM / NODULAR THYROID - 2011 S/P STENTING ENDOMETRIOSIS S/P MISSY / BSO RHEUMATOID ARTHRITIS R HAND NUMBNESS / PARESTHESIAS OBSTRUCTIVE SLEEP APNEA DYSLIPIDEMIA ALLERGIC RHINITIS ANXIETY HYPERTENSION POLYMYALGIA RHEUMATICA SPHEROCYTOSIS ALLERGIES GABAPENTIN: MIGRAINES: ALLERGY LYRICA: FEET SWELLING: ALLERGY NORTRIPTYLINE HCL: ITCHING/RASH: ALLERGY IMITREX: SEVERE HYPERTENSION: SIDE EFFECTS REVIEW OF SYSTEMS REVIEWED BY: PROVIDER: . CONSTITUTIONAL: ANY CHANGE IN YOUR MEDICAL CONDITION? NO . CHILLS NO . FEVER NO . INFECTION: DO YOU HAVE NEW INFECTIONS? NO . DO YOU HAVE HISTORY OF MRSA? NO . MUSCULOSKELETAL: ANY NEW PATTERNS OF PAIN OR NUMBNESS? NO . GASTROENTEROLOGY: ANY NEW CHANGE IN BOWEL CONTROL? NO . GENITOURINARY: ANY NEW CHANGE IN BLADDER CONTROL? NO . IS THERE A CHANCE YOU COULD BE ? NO . HEMATOLOGY/LYMPH: DO YOU TAKE ANY BLOOD THINNERS? (FOR EXAMPLE- COUMADIN, PLAVIX, AGGRENOX, PLATEL, PRADAXA, OR XARELTO) NO . WHEN WAS YOUR LAST DOSE? DATE: TIME: . NEUROLOGY: HAVE YOU FALLEN IN THE PAST 6 MONTHS? NO . ANY NEW EXTREMITY NUMBNESS OR WEAKNESS? NO . CARDIOLOGY: DO YOU HAVE A PACEMAKER OR DEFIBRILLATOR? NO . RESPIRATORY: HAVE YOU BEEN SICK IN THE PAST WEEK? NO . FEVER NO . FLU LIKE SYMPTOMS? NO . COUGH NO . INTEGUMENTARY: DO YOU HAVE ANY RASHES OR OPEN SORES? NO . ALLERGIC/IMMUNO: ARE YOU ALLERGIC TO SHELLFISH OR IV DYE? NO . ANY NEW ALLERGIES? NO . PSYCHIATRIC: DO YOU HAVE THOUGHTS OF HURTING YOURSELF OR SOMEONE ELSE? NO . ARE YOU ABUSED, NEGLECTED, OR IN AN UNSAFE ENVIRONMENT? NO . ENDOCRINOLOGY: ARE YOU DIABETIC? YES . OTHER: DO YOU NEED ANY PRESCRIPTIONS? NO . IF YES, PLEASE LIST: ____ . ANY NEW PROBLEMS WITH YOUR MEDICATIONS? NO . WHEN DID YOU LAST EAT? ____LAST NIGHT . WHEN DID YOU LAST DRINK? ____0900 THIS MORNING . WHAT DID YOU LAST DRINK? ____COFFEE . NAME OF PERSON DRIVING YOU HOME? ____ . DO YOU HAVE ANY OTHER QUESTIONS OR CONCERNS NO . VITAL SIGNS WT 153 LBS, HT 61.25 IN, BMI 28.67 INDEX, BP 126/63 MM HG, HR 72 /MIN, RR 18 /MIN, TEMP 97.9 F, OXYGEN SAT % 95%, NA INITIALS AW 1400. ASSESSMENTS MYALGIA - M79.1 (PRIMARY) PROCEDURES PN TRIGGER POINT INJECTION WITH STEROIDS PRE PROCEDURE DIAGNOSIS 1. MYALGIA 2. PAIN AT BILATERAL LOWER BACK AREA POST PROCEDURE DIAGNOSIS 1. MYALGIA 2. PAIN AT BILATERAL LOWER BACK AREA PROCEDURE TRIGGER POINT INJECTION AT BILATERAL LOWER BACK AREA SURGEON DR. GABRIELLE PALOMARES [place]ARO NONE ANESTHESIA LOCAL PRE PROCEDURE NOTE THE PATIENT HAS A HISTORY OF CHRONIC PAIN AT THE BILATERAL LOWER BACK AREA. I EVALUATE THE PATIENT AND REVIEWED THE CHART. THERE IS EVIDENCE OF BANDS OF TISSUE WITH RESTRICTION OF MOVEMENT AND PRESENCE OF TRIGGER POINT AT THE AFFECTED AREA. I WENT OVER THE RISKS, ALTERNATIVES, AND BENEFITS ASSOCIATED WITH THIS PROCEDURE. THE PATIENT WOULD LIKE TO PROCEED AND GIVE CONSENT TO PERFORMED THE PROCEDURE. THE PATIENT DENIES UNEXPLAINABLE WEIGHT LOSS, FEVER, CHILLS, OR NEW CHANGES IN URINARY OR BOWEL CONTROL DESCRIPTION OF PROCEDURE THE PATIENT WAS BROUGHT TO THE PROCEDURE ROOM AND PLACED IN THE SITTING POSITION. THE AREA WAS CLEANED WITH ALCOHOL. THE PROCEDURE WAS DONE USING ASEPTIC STERILE TECHNIQUE. I CHECKED LATERALITY AND THE LEVEL WHERE THE PROCEDURE WAS GOING TO BE PERFORMED WITH THE PATIENT AND THE SUPPORTING STAFF AT THE MOMENT OF THE TIME OUT IN THE PROCEDURE ROOM. USING A 25-GAUGE NEEDLE, TRIGGER POINTS WERE INJECTED AT THE RIGHT AND LEFT LOWER BACK AREA WITH A TOTAL OF 40 ML OF BUPIVACAINE 0.25% AND KENALOG 40 MG. THERE WAS NO EVIDENCE OF BLOOD, PARESTHESIA OR CEREBROSPINAL FLUID DURING THE PROCEDURE. THE PATIENT WAS SENT TO THE RECOVERY ROOM. THE PATIENT WAS MOVING THE EXTREMITIES AND DOING WELL. THERE WAS NO COMPLICATION DURING THE PROCEDURE POST PROCEDURE NOTE THE PATIENT WILL BE SEEN IN A FOLLOW UP IN THE NEXT FEW WEEKS. INSTRUCTIONS WERE GIVEN, QUESTIONS WERE ANSWERED, AND THE PATIENT EXPRESSED UNDERSTANDING AND AGREES WITH THE PLAN. I, CARLOS CHU, DOCUMENTED THE ABOVE INFORMATION ACTING A SCRIBE FOR DR. PALOMARES. I HAVE REVIEWED THE ABOVE DOCUMENT, WRITTEN BY CARLOS ELIZABETHIBKody AND I VERIFY THAT IT IS ACCURATE PROCEDURE CODES 47522 INJ TRIGGER POINT / MUSC DISPOSITION & COMMUNICATION FOLLOW UP 3 WEEKS ELECTRONICALLY SIGNED BY GABRIELLE PALOMARES MD ON 03/07/2017 AT 07:57 PM EDT DISCLAIMER : THIS IS A VISIT SUMMARY EXTRACTED FROM THE [employer] CHART. IT IS NOT A COPY OF THE [employer] PROGRESS NOTE. NOLAN
== END ==
LOC: M PAIN 14:00
PROVIDERS: ATTEND Anesthesiology
DX: G89.29 Other chronic pain (principal); M79.1 Myalgia; M54.5 Low back pain; I10 Essential (primary) hypertension; M35.3 Polymyalgia rheumatica; G47.33 Obstructive sleep apnea (adult) (pediatric); R53.82 Chronic fatigue, unspecified; G43.709 Chronic migraine without aura, not intractable, without status migrainosus; Z79.82 Long term (current) use of aspirin; Z79.891 Long term (current) use of opiate analgesic; Z79.899 Other long term (current) drug therapy; Z88.8 Allergy status to other drugs, medicaments and biological substances
CPT/HCPCS: 20552; J3301

== ENCOUNTER → 2017-03-21 | Outpatient (CLI) | payer MEDICARE ==
[~2017-03-21] MED LIST changes: -BUPIVACAINE HCL 0.25% 10 ML VIAL As Ordered ONE; -BUPIVACAINE HCL 0.25% 30 ML VIAL As Ordered ONE; -TRIAMCINOLONE ACETONIDE SUSP 40 MG/ML VIAL (J3301) As Ordered ONE; -diazePAM 5 MG TAB As Ordered ONE; -oxyCODONE 5MG TAB As Ordered ONE
--- NOTE | 2017-03-31 01:14 | ECWPNPC ---
PATIENT NAME: HASEEB KURTZ : 1955 GENDER: FEMALE VISIT DATE: 03/21/2017 DISCHARGE DATE: 03/21/17 1506 VISIT LOCKED DATE TIME: PHYSICIAN: ESTRELLA TIRADO RESOURCE: ESTRELLA TIRADO REASON FOR APPOINTMENT 1. POST PROCEDURE/ SET UP BOTOX HISTORY OF PRESENT ILLNESS HISTORY OF PRESENT ILLNESS: PAIN THE PATIENT DESCRIBES THE PAIN... FALL RISK SCREENING: SCREENING :NO FALLS IN THE PAST YEAR TODAY'S VISIT: NOTES: RATES PAIN TODAY 6-7/10. NOTES PAIN IS ALL OVER THE BODY. IS DUE FOR BOTOX FOR MIGRAINE PREVENTION. IS HAVING ABOUT 13/MO BUT THESE HAVE EEN GENERALLY TOLERALBE SINCE SHE HAS STARTED BOTOX THERAPY. NOTES PAIN MARKEDLY INCREASE OF HEADACHE AN GENERAL PAIN WITH SHOWERING. HAD TPI ON 02/23/17 WITH SIG RELIEF THAT NITE ON RIGHT SIDE ESPECIALLY. THIS LEVEL HAS CONTINUED TO RTC TODAY. HAS HAD SOME INTERMITTANT FLARES OF GENERAL PAIN. ESR TO BE CHECKED. . CURRENT MEDICATIONS TAKING DRISDOL 46130 UNIT CAPSULE 1 CAPSULE ORALLY ONCE WEEKLY TAKING ASPIRIN ADULT LOW DOSE 81 MG TABLET DELAYED RELEASE 1 TABLET ORALLY ONCE A DAY TAKING ATORVASTATIN CALCIUM 40 MG TABLET 1 TABLET ORALLY ONCE A DAY TAKING CALCIUM 1200+D3 600-40-500 MG-MG-UNIT TABLET EXTENDED RELEASE 24 HOUR ORALLY ONCE DAILY TAKING COLACE 100 MG CAPSULE 1 CAPSULE NEEDED ORALLY BID TAKING CYMBALTA 60 MG CAPSULE DELAYED RELEASE PARTICLES 1 CAPSULE ORALLY ONCE A DAY TAKING EFFIENT 10 MG TABLET 1 TABLET ORALLY ONCE A DAY (CESAR) TAKING HOSPITAL BED _ MISCELLANEOUS 1 ICD: M25.50, M79.1 DAILY TAKING IRBESARTAN-HYDROCHLOROTHIAZIDE 150-12.5 MG TABLET 1 TABLET ORALLY TWICE DAILY/DR CESAR TAKING LORATADINE 10 MG TABLET 1 TABLET ORALLY ONCE A DAY NEEDED TAKING ATIVAN 0.5 MG TABLET 1 TABLET ORALLY TAKE ONE HOUR PRIOR TO TEST, AND ON ON ARRIVAL TO TEST LOCATION MDD=2 TAKING AMLODIPINE BESYLATE 5 MG TABLET 1 TABLET ORALLY TWICE A DAY TAKING NYSTATIN 6 MU/GM POWDER TOPICALLY TO AFFECTED AREA TOPICALLY FOUR TIMES A DAY TAKING MORPHINE SULFATE 15 MG TABLET 1 TABLET NEEDED ORALLY TWICE DAILY PRN PAIN MDD=2 TAKING ROBAXIN-750 750 MG TABLET 1 TABLET ORALLY EVERY 8 HOURS NEEDED TAKING PREDNISONE 20 MG TABLET 1 TABLET ORALLY ONCE A DAY TAKING SHOWER CHAIR WITHOUT WHEELS 1 ICD: R26.81, M35.3 DAILY USE TAKING MAY HAVE - - SHOWER WAND ICD: R26.81, M35.3 DAILY TAKING BACTROBAN 2 % CREAM 1 APPLICATION TO AFFECTED AREAS EXTERNALLY THREE TIMES A DAY TAKING MORPHINE SULFATE ER 30 MG TABLET EXTENDED RELEASE 1 TABLET ORALLY Q 8 HRS CHRONIC PAIN MDD=3 NOT-TAKING MORPHINE SULFATE 15 MG TABLET 1 TABLET NEEDED ORALLY EVERY 6-8 HRS PRN PAIN MDD=2 NOT-TAKING [id number] 50-325-40 MG TABLET 1 TABLET NEEDED ORALLY EVERY 4 HRS PRN HEADACHE MDD=3, NOTES: 02-22-17 0900 NOT-TAKING PROMETHAZINE HCL 25 MG TABLET 1 TABLET NEEDED ORALLY EVERY 12 HRS PRN NAUSEA NOT-TAKING PREDNISONE 10 MG TABLET 1 TABLET ORALLY ONCE A DAY, NOTES: 02-23-17 0800 NOT-TAKING HYDROXYZINE HCL 10 MG TABLET 1 TAB ORALLY FOUR TIMES DAILY NOT-TAKING MORPHINE SULFATE ER 30 MG TABLET EXTENDED RELEASE 1 TABLET ORALLY EVERY 8 HRS CHRONIC PAIN MDD=3 MEDICATION LIST REVIEWED AND RECONCILED WITH THE PATIENT PAST MEDICAL HISTORY FIBROMYALGIA OSTEOPOROSIS HEREDITARY SPHEROCYTOSIS S/P SPLENECTOMY HYPERTHYROIDISM / NODULAR THYROID 2011 S/P STENTING ENDOMETRIOSIS S/P MISSY / BSO RHEUMATOID ARTHRITIS R HAND NUMBNESS / PARESTHESIAS OBSTRUCTIVE SLEEP APNEA DYSLIPIDEMIA ALLERGIC RHINITIS ANXIETY HYPERTENSION POLYMYALGIA RHEUMATICA SPHEROCYTOSIS ALLERGIES GABAPENTIN: MIGRAINES: ALLERGY LYRICA: FEET SWELLING: ALLERGY NORTRIPTYLINE HCL: ITCHING/RASH: ALLERGY IMITREX: SEVERE HYPERTENSION: SIDE EFFECTS SURGICAL HISTORY SPLENECTOMY LAD STENT PLACEMENT 04/2012 APPENDECTOMY MISSY/BSO AGE 34 BLADDER SLING CHOLECYSTECTOMY LUMPECTOMY R BREAST BY DR SMITH 09/2014 HOSPITALIZATION/MAJOR DIAGNOSTIC PROCEDURE SURGERIES REVIEW OF SYSTEMS REVIEWED BY: PROVIDER: ESTRELLA PAULA . CONSTITUTIONAL: ANY CHANGE IN YOUR MEDICAL CONDITION? NO . CHILLS NO . FEVER NO . INFECTION: DO YOU HAVE NEW INFECTIONS? NO . DO YOU HAVE HISTORY OF MRSA? NO . MUSCULOSKELETAL: ANY NEW PATTERNS OF PAIN OR NUMBNESS? YES, PAIN IS WORSE TODAY. PT STATES SHE TOOK A SHOWER AND THIS ACTIVITY HAS INCREASED PAIN. PT STATES THAT NEIGHBOR IN [employer] [employer] IS CREATING NOISE POLUTION THAT PT HAS BEEN DEALING WITH [facility]. PT STATES SHE IS IN PROCESS OF MOVING, VERY STRESSFUL . GASTROENTEROLOGY: ANY NEW CHANGE IN BOWEL CONTROL? NO . GENITOURINARY: ANY NEW CHANGE IN BLADDER CONTROL? NO . IS THERE A CHANCE YOU COULD BE ? NO . HEMATOLOGY/LYMPH: DO YOU TAKE ANY BLOOD THINNERS? (FOR EXAMPLE- COUMADIN, PLAVIX, AGGRENOX, PLATEL, PRADAXA, OR XARELTO) YES, EFFIENT . WHEN WAS YOUR LAST DOSE? DATE: TIME: . NEUROLOGY: HAVE YOU FALLEN IN THE PAST 6 MONTHS? NO . ANY NEW EXTREMITY NUMBNESS OR WEAKNESS? NO . CARDIOLOGY: DO YOU HAVE A PACEMAKER OR DEFIBRILLATOR? NO . RESPIRATORY: HAVE YOU BEEN SICK IN THE PAST WEEK? NO . FEVER NO . FLU LIKE SYMPTOMS? NO . COUGH NO . INTEGUMENTARY: DO YOU HAVE ANY RASHES OR OPEN SORES? NO . ALLERGIC/IMMUNO: ARE YOU ALLERGIC TO SHELLFISH OR IV DYE? NO . ANY NEW ALLERGIES? NO . PSYCHIATRIC: DO YOU HAVE THOUGHTS OF HURTING YOURSELF OR SOMEONE ELSE? NO . ARE YOU ABUSED, NEGLECTED, OR IN AN UNSAFE ENVIRONMENT? NO . ENDOCRINOLOGY: ARE YOU DIABETIC? YES . OTHER: DO YOU NEED ANY PRESCRIPTIONS? YES, METHOCARBIMO 750L, [id number] 50-325-40 . IF YES, PLEASE LIST: ____ . ANY NEW PROBLEMS WITH YOUR MEDICATIONS? NO . WHEN DID YOU LAST EAT? ____ . WHEN DID YOU LAST DRINK? ____ . WHAT DID YOU LAST DRINK? ____ . NAME OF PERSON DRIVING YOU HOME? ____ . DO YOU HAVE ANY OTHER QUESTIONS OR CONCERNS NO . VITAL SIGNS WT 148.6 LBS, HT 61.25 IN, BMI 27.85 INDEX, BP 117/65 MM HG, HR 71 /MIN, RR 18 /MIN, TEMP 97.5 F, OXYGEN SAT % 96%, NA INITIALS [id number], REVIEWED BY: EM. EXAMINATION GENERAL EXAMINATION: PSYCHALERT , ORIENTED X 3 , APPROPRIATE MOOD AND AFFECT , TALKATIVE AND CHEERFUL. LUNGS:CLEAR TO AUSCULTATION BILATERALLY, FEW SCHATTERED WHEEZES, CLEARS WITH COUGH. HEART:HEART RATE REGULAR. MUSCULOSKELETAL:MUSCLE STRENGTH TESTING 5/5 BILATERAL UPPER AND LOWER EXTREMITIES. SLOW TO RISE TO STANDING POSITION. SKIN:MULTIPLE ECCYMOTIC AREAS ON BOTH UPPER ARMS. NEUROLOGIC EXAM:CN'S II-XII GROSSLY INTACT. EOMS INTACT WITHOUT NYSTAGMUS. NO PHOTOPHOBIA TODAY. ASSESSMENTS CHRONIC PAIN SYNDROME - G89.4 (PRIMARY) MIGRAINE WITHOUT AURA, NOT INTRACTABLE, WITHOUT STATUS MIGRAINOSUS - G43.009 (PRIMARY) CHRONIC PRESCRIPTION OPIATE USE - Z79.891 TREATMENT CHRONIC PAIN SYNDROME REFILL [id number] TABLET, 50-325-40 MG, 1 TABLET NEEDED, ORALLY, EVERY 4 HRS PRN HEADACHE MDD=3, 3 DOSES, 90, REFILLS 0 REFILL ROBAXIN-750 TABLET, 750 MG, 1 TABLET, ORALLY, EVERY 8 HOURS NEEDED, 30 DAY(S), 90, REFILLS 0 START LORAZEPAM TABLET, 0.5 MG, 1 TABLET NEEDED, ORALLY, TAKE ONE TAB BEFORE ARRIVAL TO CLINIC AND ONE PRIOR TO TREATMENT MDD=2, 1 DOSE(S), 2, REFILLS 0 TRIGGER POINT 3 + ESTRELLA MONTEMAYOR 03/21/2017 2:50:18 PM > LOW BACK NOTES: BOTOX SCHEDULEDDO NOT STOP PREDNISONE OR EFFIENT FOR INJECTIONS. PROCEDURE CODES FA211 ESTABILISHED PATIENT [facility] FACILITY CHARGE G8730 PAIN ASSESS POS TOOL F/U PLAN DOC G8427 DOC MEDS VERIFIED W/PT OR RE DISPOSITION & COMMUNICATION FOLLOW UP 1 MONTH (REASON: CHECK AUTH FOR TPI LOW BACK/ HAS BOTOX ALREADY APPROVED) ELECTRONICALLY SIGNED BY ROBYN BARRIENTOS ON 03/30/2017 AT 09:00 AM EDT DISCLAIMER : THIS IS A VISIT SUMMARY EXTRACTED FROM THE [employer] CHART. IT IS NOT A COPY OF THE [employer] PROGRESS NOTE. RAFAELAD
== END | disposition home or self-care (01) ==
LOC: M PAIN 14:00
PROVIDERS: ATTEND Nurse Practitioner Family
DX: G89.29 Other chronic pain (principal); G43.009 Migraine without aura, not intractable, without status migrainosus; M79.1 Myalgia; M54.5 Low back pain; I10 Essential (primary) hypertension; M35.3 Polymyalgia rheumatica; G47.33 Obstructive sleep apnea (adult) (pediatric); R53.82 Chronic fatigue, unspecified; Z79.82 Long term (current) use of aspirin; Z79.891 Long term (current) use of opiate analgesic; Z79.899 Other long term (current) drug therapy; Z88.8 Allergy status to other drugs, medicaments and biological substances

== ENCOUNTER → 2017-03-31 | Outpatient (CLI) | payer MEDICARE ==
[~2017-03-31] MED LIST changes: +BOTULINUM INJ 100 UNITS (J0585) IM ONE; +diazePAM 5 MG TAB As Ordered ONE; +oxyCODONE 5MG TAB As Ordered ONE
--- NOTE | 2017-04-01 00:28 | ECWPNPC ---
PATIENT NAME: HASEEB KURTZ : 1955 GENDER: FEMALE VISIT DATE: 03/31/2017 DISCHARGE DATE: 03/31/17 1411 VISIT LOCKED DATE TIME: PHYSICIAN: GABRIELLE PALOMARES RESOURCE: GABRIELLE PALOMARES REASON FOR APPOINTMENT 1. BOTOX HISTORY OF PRESENT ILLNESS HISTORY OF PRESENT ILLNESS: PAIN THE PATIENT DESCRIBES THE PAIN... FALL RISK SCREENING: SCREENING :NO FALLS IN THE PAST YEAR CURRENT MEDICATIONS TAKING ASPIRIN ADULT LOW DOSE 81 MG TABLET DELAYED RELEASE 1 TABLET ORALLY ONCE A DAY, NOTES: 03-30-171299 TAKING ATORVASTATIN CALCIUM 40 MG TABLET 1 TABLET ORALLY ONCE A DAY, NOTES: 03-30-171299 TAKING CALCIUM 1200+D3 600-40-500 MG-MG-UNIT TABLET EXTENDED RELEASE 24 HOUR ORALLY ONCE DAILY, NOTES: 03-30-171299 TAKING COLACE 100 MG CAPSULE 1 CAPSULE NEEDED ORALLY BID, NOTES: 03-30-171299 TAKING CYMBALTA 60 MG CAPSULE DELAYED RELEASE PARTICLES 1 CAPSULE ORALLY ONCE A DAY, NOTES: 03-30-171299 TAKING EFFIENT 10 MG TABLET 1 TABLET ORALLY ONCE A DAY (CESAR), NOTES: 03-30-171299 TAKING HOSPITAL BED _ MISCELLANEOUS 1 ICD: M25.50, M79.1 DAILY TAKING IRBESARTAN-HYDROCHLOROTHIAZIDE 150-12.5 MG TABLET 1 TABLET ORALLY TWICE DAILY/DR GUERRERO, NOTES: 03-30-171299 TAKING LORATADINE 10 MG TABLET 1 TABLET ORALLY ONCE A DAY NEEDED, NOTES: 03-30-171299 TAKING AMLODIPINE BESYLATE 5 MG TABLET 1 TABLET ORALLY TWICE A DAY, NOTES: NOT LATELY TAKING NYSTATIN 6 MU/GM POWDER TOPICALLY TO AFFECTED AREA TOPICALLY FOUR TIMES A DAY, NOTES: 03-30-171299 TAKING PREDNISONE 20 MG TABLET 1 TABLET ORALLY ONCE A DAY, NOTES: 03-31-17 0900 TAKING SHOWER CHAIR WITHOUT WHEELS 1 ICD: R26.81, M35.3 DAILY USE TAKING MAY HAVE - - SHOWER WAND ICD: R26.81, M35.3 DAILY TAKING BACTROBAN 2 % CREAM 1 APPLICATION TO AFFECTED AREAS EXTERNALLY THREE TIMES A DAY TAKING MORPHINE SULFATE ER 30 MG TABLET EXTENDED RELEASE 1 TABLET ORALLY Q 8 HRS CHRONIC PAIN MDD=3, NOTES: 03-30-172099 TAKING ATIVAN 0.5 MG TABLET 1 TABLET ORALLY TAKE ONE HOUR PRIOR TO TEST, AND ON ON ARRIVAL TO TEST LOCATION MDD=2, NOTES: 03-30-171299 TAKING [id number] 50-325-40 MG TABLET 1 TABLET NEEDED ORALLY EVERY 4 HRS PRN HEADACHE MDD=3, NOTES: 02-22-17 0900 TAKING ROBAXIN-750 750 MG TABLET 1 TABLET ORALLY EVERY 8 HOURS NEEDED, NOTES: 03-31-172016 TAKING MORPHINE SULFATE 15 MG TABLET 1 TABLET NEEDED ORALLY TWICE DAILY PRN PAIN MDD=2, NOTES: 03-30-17 09 NOT-TAKING DRISDOL 55713 UNIT CAPSULE 1 CAPSULE ORALLY ONCE WEEKLY NOT-TAKING CLOTRIMAZOLE 1 % CREAM 1 APPLICATION TO AFFECTED AREA: APPLY THIN LAYER EXTERNALLY TWICE A DAY NOT-TAKING CLARITHROMYCIN ER 500 MG TABLET EXTENDED RELEASE 24 HOUR 2 TABLETS WITH FOOD ORALLY ONCE A DAY NOT-TAKING LORAZEPAM 0.5 MG TABLET 1 TABLET NEEDED ORALLY TAKE ONE TAB BEFORE ARRIVAL TO CLINIC AND ONE PRIOR TO TREATMENT MDD=2 NOT-TAKING MORPHINE SULFATE 15 MG TABLET 1 TABLET NEEDED ORALLY EVERY 6-8 HRS PRN PAIN MDD=2 NOT-TAKING PROMETHAZINE HCL 25 MG TABLET 1 TABLET NEEDED ORALLY EVERY 12 HRS PRN NAUSEA NOT-TAKING PREDNISONE 10 MG TABLET 1 TABLET ORALLY ONCE A DAY, NOTES: 02-23-17 0800 NOT-TAKING HYDROXYZINE HCL 10 MG TABLET 1 TAB ORALLY FOUR TIMES DAILY NOT-TAKING MORPHINE SULFATE ER 30 MG TABLET EXTENDED RELEASE 1 TABLET ORALLY EVERY 8 HRS CHRONIC PAIN MDD=3 MEDICATION LIST REVIEWED AND RECONCILED WITH THE PATIENT PAST MEDICAL HISTORY FIBROMYALGIA OSTEOPOROSIS HEREDITARY SPHEROCYTOSIS S/P SPLENECTOMY HYPERTHYROIDISM / NODULAR THYROID - 2011 S/P STENTING ENDOMETRIOSIS S/P MISSY / BSO RHEUMATOID ARTHRITIS R HAND NUMBNESS / PARESTHESIAS OBSTRUCTIVE SLEEP APNEA DYSLIPIDEMIA ALLERGIC RHINITIS ANXIETY HYPERTENSION POLYMYALGIA RHEUMATICA SPHEROCYTOSIS ALLERGIES GABAPENTIN: MIGRAINES: ALLERGY LYRICA: FEET SWELLING: ALLERGY NORTRIPTYLINE HCL: ITCHING/RASH: ALLERGY IMITREX: SEVERE HYPERTENSION: SIDE EFFECTS REVIEW OF SYSTEMS REVIEWED BY: PROVIDER: . CONSTITUTIONAL: ANY CHANGE IN YOUR MEDICAL CONDITION? NO . CHILLS NO . FEVER NO . INFECTION: DO YOU HAVE NEW INFECTIONS? NO . DO YOU HAVE HISTORY OF MRSA? NO . MUSCULOSKELETAL: ANY NEW PATTERNS OF PAIN OR NUMBNESS? NO . GASTROENTEROLOGY: ANY NEW CHANGE IN BOWEL CONTROL? NO . GENITOURINARY: ANY NEW CHANGE IN BLADDER CONTROL? NO . IS THERE A CHANCE YOU COULD BE ? NO . HEMATOLOGY/LYMPH: DO YOU TAKE ANY BLOOD THINNERS? (FOR EXAMPLE- COUMADIN, PLAVIX, AGGRENOX, PLATEL, PRADAXA, OR XARELTO) NO . WHEN WAS YOUR LAST DOSE? DATE: TIME: . NEUROLOGY: HAVE YOU FALLEN IN THE PAST 6 MONTHS? NO . ANY NEW EXTREMITY NUMBNESS OR WEAKNESS? NO . CARDIOLOGY: DO YOU HAVE A PACEMAKER OR DEFIBRILLATOR? NO . RESPIRATORY: HAVE YOU BEEN SICK IN THE PAST WEEK? NO . FEVER NO . FLU LIKE SYMPTOMS? NO . COUGH NO . INTEGUMENTARY: DO YOU HAVE ANY RASHES OR OPEN SORES? NO BRUISING SPOTS FROM STEROIDS . ALLERGIC/IMMUNO: ARE YOU ALLERGIC TO SHELLFISH OR IV DYE? NO . ANY NEW ALLERGIES? NO . PSYCHIATRIC: DO YOU HAVE THOUGHTS OF HURTING YOURSELF OR SOMEONE ELSE? NO . ARE YOU ABUSED, NEGLECTED, OR IN AN UNSAFE ENVIRONMENT? NO . ENDOCRINOLOGY: ARE YOU DIABETIC? YES . OTHER: DO YOU NEED ANY PRESCRIPTIONS? NO . IF YES, PLEASE LIST: ____ . ANY NEW PROBLEMS WITH YOUR MEDICATIONS? NO . WHEN DID YOU LAST EAT? ____YESTERDAY . WHEN DID YOU LAST DRINK? ____ . WHAT DID YOU LAST DRINK? ____COFFEE/BLACK . NAME OF PERSON DRIVING YOU HOME? ____[employer] . DO YOU HAVE ANY OTHER QUESTIONS OR CONCERNS NO . VITAL SIGNS WT 150.8 LBS, HT 61.25 IN, BMI 28.26 INDEX, BP 124/60 MM HG, HR 78 /MIN, RR 18 /MIN, TEMP 97.3 F, OXYGEN SAT % 94%, NA INITIALS SC12:41, REVIEWED BY: KG. ASSESSMENTS CHRONIC MIGRAINE WITHOUT AURA WITHOUT STATUS MIGRAINOSUS, NOT INTRACTABLE - G43.709 (PRIMARY) PROCEDURES PN BOTOX INJECTIONS SUBSEQUENT INJECTIONS PRE PROCEDURE DIAGNOSIS CHRONIC MIGRAINE HEADACHES POST PROCEDURE DIAGNOSIS CHRONIC MIGRAINE HEADACHES PROCEDURE BOTOX INJECTION AT THE HEAD, NECK AND SHOULDERS SURGEON DR. GABRIELLE PALOMARES LEVEL VIAL INSPECTOR NONE ANESTHESIA NONE PRE PROCEDURE NOTE THE PATIENT HAS HISTORY OF CHRONIC MIGRAINE HEADACHES. I EVALUATE THE PATIENT AND REVIEWED THE CHART. I WENT OVER THE RISKS, ALTERNATIVES, AND BENEFITS ASSOCIATED WITH THIS PROCEDURE. THE PATIENT WOULD LIKE TO PROCEED AND GIVE CONSENT TO PERFORMED THE PROCEDURE. THE PATIENT DENIES UNEXPLAINABLE WEIGHT LOSS, FEVER, CHILLS, OR NEW CHANGES IN URINARY OR BOWEL CONTROL. THE PATIENT DID A BOTOX INJECTION AT THE HEAD, NECK AND SHOULDERS 3 MONTHS AGO AND EXPRESSED MORE THAN 50% REDUCTION ON THE FREQUENCY AND INTENSITY OF THE HEADACHES. THE PATIENT EXPRESS THAT THE USE OF BOTOX HAS REDUCE SIGNIFICANTLY THE SEVERITY OF THE HEADACHES AND EXPRESSED THAT WANT TO RECEIVE THIS PROCEDURE AGAIN TODAY DESCRIPTION OF PROCEDURE THE PATIENTS WAS BROUGHT TO THE PROCEDURE ROOM AND PLACED IN THE SUPINE POSITION. I CHECKED LATERALITY AND THE AREAS WHERE THE PROCEDURE WAS GOING TO BE PERFORMED WITH THE PATIENT AND THE SUPPORTING STAFF AT THE MOMENT OF THE TIME OUT IN THE PROCEDURE ROOM. FOR THE PROCEDURE I USED A SOLUTION OF 5 UNITS OF BOTOX PER EACH 0.1 ML OF THE SOLUTION. I USED A 30-GAUGE NEEDLE TO INJECT THE SOLUTION AT THE SELECTED LOCATIONS. I INJECTED FIRST THE RIGHT AND LEFT PROFESSIONAL FIGHTER MUSCLES. THE LANDMARK FOR BOTH INJECTIONS WAS APPROXIMATELY 1 CM ABOVE THE SUPERIOR MEDIAL EDGE OF THE EYEBROW. AFTER THESE TWO INJECTIONS, I INJECTED THE PROCERUS MUSCLE AT THE MIDLINE POINT BETWEEN THESE FIRST TWO INJECTIONS. THEN I PROCEEDED TO INJECT THE RIGHT AND LEFT FRONTALIS MUSCLE. TWO INJECTIONS WERE DONE IN EACH SIDE. THE FIRST INJECTION WAS DONE APPROXIMATELY 2 CM ABOVE THE FIRST INJECTION OF THE PROFESSIONAL FIGHTER. THE SECOND INJECTION WAS DONE APPROXIMATELY 1.5 CM LATERAL TO THIS FIST INJECTION OF THE FRONTALIS OF EACH SIDE. AFTER THE INJECTIONS OVER THE FOREHEAD WERE DONE, THE PATIENT'S HEAD WAS TURNED TO THE LEFT SIDE AND WE STARTED TO WORK WITH THE RIGHT TEMPORALIS MUSCLE. FIRST INJECTION WAS DONE IN A VERTICAL LINE OF THE TRAGUS APPROXIMATELY 3 CM ABOVE THE TRAGUS. THE SECOND INJECTION WAS DONE APPROXIMATELY 2 CM ABOVE THE FIRST INJECTION. THE THIRD INJECTION WAS DONE APPROXIMATELY 1 CM FRONT CASTILLO FROM THIS VERTICAL LINE CREATED AT THE LEVEL OF THE TRAGUS, GROUP HOME BETWEEN THESE TWO INJECTIONS. THE FOURTH INJECTION WAS DONE APPROXIMATELY 1.5 CM BACK FROM THE SECOND INJECTION TO THE TEMPORALIS IN LINE TO THE MIDPORTION OF THE EAR. THEN, WE PROCEEDED TO INJECT THE LEFT TEMPORALIS MUSCLE. WE CLEANED THE AREA WITH ALCOHOL AND PROCEEDED TO PERFORM THE SAME FOR INJECTIONS DESCRIBED ABOVE BUT IN THE LEFT TEMPORALIS MUSCLE USING THE SAME LANDMARKS. AFTER THESE INJECTIONS WERE DONE, THE PATIENT WAS SEATED. FIRST, WE STARTED TO INJECT THE LEFT AND RIGHT OCCIPITALIS MUSCLE. I INJECTED AT THE FOLLOWING PLACES IN THE RIGHT AND LEFT MUSCLE. THE FIRST INJECTION WAS DONE AT THE MIDPOINT POSITION BETWEEN THE MASTOID PROCESS AND THE INION OF THE OCCIPITAL PROTUBERANCE. THE SECOND INJECTION WAS DONE APPROXIMATELY 1.5 CM SUPERIOR AND LATERAL OF THIS POINT. THE THIRD INJECTION WAS DONE APPROXIMATELY 1.5 CM SUPERIOR AND MEDIAL TO THIS FIRST INJECTION. THEN, I PROCEEDED TO INJECT THE RIGHT AND LEFT PARASPINAL MUSCLES. LANDMARK OF THE INJECTION WERE APPROXIMATELY: FIRST INJECTION 3 CM BELOW THE INION AND 1 CM LATERAL TO THE MIDLINE AND SECOND INJECTION AT EACH SIDE WAS DONE APPROXIMATELY 1.5 CM SUPERIOR AND LATERAL OF THE FIRST INJECTION. THE LAST GROUP OF INJECTIONS WAS DONE OVER THE RIGHT AND LEFT TRAPEZIUS MUSCLE OVER THE SHOULDERS AREA. THE FIRST INJECTION WAS DONE AT THE MIDPOINT BETWEEN THE INFLECTION POINT BETWEEN THE NECK AND SHOULDER AND THE ACROMION. THE SECOND AND THIRD INJECTIONS WERE DONE APPROXIMATELY 2.5 CM LATERAL AND MEDIAL FROM THIS FIRST INJECTION. SAME TARGETS WERE USED IN THE RIGHT AND LEFT SIDE. IN TOTAL, I INJECTED 155 UNITS OF BOTOX. PROCEDURE WAS DONE WITHOUT EVIDENCE OF PARESTHESIA, PNEUMOTHORAX, OR ANY COMPLICATIONS. THE PATIENT TOLERATED THE PROCEDURE VERY WELL. THE PATIENT WAS SENT TO THE RECOVERY ROOM FOR OBSERVATIONS. INJECTIONS WERE DONE AFTER CLEANING WITH ALCOHOL, USING ASEPTIC TECHNIQUES POST PROCEDURE NOTE THE PROCEDURE DONE WAS DISCUSSED WITH THE PATIENT. THE PATIENT WILL BE SEEN IN A FOLLOW UP IN THE NEXT FEW WEEKS. INSTRUCTIONS WERE GIVEN, QUESTIONS WERE ANSWERED, AND THE PATIENT EXPRESSED UNDERSTANDING AND AGREES WITH THE PLAN. I, CARLOS CHU, DOCUMENTED THE ABOVE INFORMATION ACTING A SCRIBE FOR DR. PALOMARES. I HAVE REVIEWED THE ABOVE DOCUMENT, WRITTEN BY CARLOS MIKE AND I VERIFY THAT IT IS ACCURATE PROCEDURE CODES 33356 [facility] DISPOSITION & COMMUNICATION FOLLOW UP 3 WEEKS ELECTRONICALLY SIGNED BY GABRIELLE PALOMARES MD ON 03/31/2017 AT 05:15 PM EDT DISCLAIMER : THIS IS A VISIT SUMMARY EXTRACTED FROM THE [employer] CHART. IT IS NOT A COPY OF THE [employer] PROGRESS NOTE. NOLAN
== END | disposition home or self-care (01) ==
LOC: M PAIN 12:30
PROVIDERS: ATTEND Anesthesiology
DX: G89.29 Other chronic pain (principal); G43.709 Chronic migraine without aura, not intractable, without status migrainosus; M79.7 Fibromyalgia; M81.0 Age-related osteoporosis without current pathological fracture; D58.0 Hereditary spherocytosis; E03.9 Hypothyroidism, unspecified; I25.2 Old myocardial infarction; M06.9 Rheumatoid arthritis, unspecified; G47.33 Obstructive sleep apnea (adult) (pediatric); E78.5 Hyperlipidemia, unspecified; J30.9 Allergic rhinitis, unspecified; F41.9 Anxiety disorder, unspecified; I10 Essential (primary) hypertension; M35.3 Polymyalgia rheumatica; Z79.899 Other long term (current) drug therapy; Z79.82 Long term (current) use of aspirin; Z79.51 Long term (current) use of inhaled steroids; Z88.8 Allergy status to other drugs, medicaments and biological substances
CPT/HCPCS: 64615; J0585

== ENCOUNTER → 2017-04-19 | Outpatient (CLI) | payer MEDICARE ==
[~2017-04-19] MED LIST changes: -BOTULINUM INJ 100 UNITS (J0585) IM ONE; -diazePAM 5 MG TAB As Ordered ONE; -oxyCODONE 5MG TAB As Ordered ONE
--- NOTE | 2017-05-16 00:06 | ECWPNPC ---
PATIENT NAME: HASEEB KURTZ : 1955 GENDER: FEMALE VISIT DATE: 04/19/2017 DISCHARGE DATE: 04/19/17 1302 VISIT LOCKED DATE TIME: PHYSICIAN: ESTRELLA TIRADO RESOURCE: ESTRELLA TIRADO REASON FOR APPOINTMENT 1. POST BOTOX HISTORY OF PRESENT ILLNESS TODAY'S VISIT: NOTES: IS HERE ON SEMI URGENT BASIS FOR LOW BACK PAIN.. NOTES HAS BEE HAVING TROUBLE WALKING AND DID HAVE A RECENT FALL WHEN CARRYING BOXES ON HER WALKER, IS S/P BOTOX FOR CHRONIC MIGRAINE ON 03/31/17 WHICH HAS PRODUCED SIG IMPROVEMTN STILL HAS DAILY HEADACHE BUT IS EASILY MANAGED WITH MEDS. HAD HAD SOME PHOT.. HISTORY OF PRESENT ILLNESS: PAIN THE PATIENT DESCRIBES THE PAIN... FALL RISK SCREENING: SCREENING :NO FALLS IN THE PAST YEAR CURRENT MEDICATIONS TAKING MORPHINE SULFATE ER 30 MG TABLET EXTENDED RELEASE 1 TABLET ORALLY Q 8 HRS CHRONIC PAIN MDD=3 TAKING ASPIRIN ADULT LOW DOSE 81 MG TABLET DELAYED RELEASE 1 TABLET ORALLY ONCE A DAY, NOTES: 03-30-171299 TAKING ATORVASTATIN CALCIUM 40 MG TABLET 1 TABLET ORALLY ONCE A DAY, NOTES: 03-30-171299 TAKING CALCIUM 1200+D3 600-40-500 MG-MG-UNIT TABLET EXTENDED RELEASE 24 HOUR ORALLY ONCE DAILY, NOTES: 03-30-171299 TAKING COLACE 100 MG CAPSULE 1 CAPSULE NEEDED ORALLY BID, NOTES: 03-30-171299 TAKING CYMBALTA 60 MG CAPSULE DELAYED RELEASE PARTICLES 1 CAPSULE ORALLY ONCE A DAY, NOTES: 03-30-171299 TAKING EFFIENT 10 MG TABLET 1 TABLET ORALLY ONCE A DAY (CESAR), NOTES: 03-30-171299 TAKING HOSPITAL BED _ MISCELLANEOUS 1 ICD: M25.50, M79.1 DAILY TAKING IRBESARTAN-HYDROCHLOROTHIAZIDE 150-12.5 MG TABLET 1 TABLET ORALLY TWICE DAILY/DR GUERRERO, NOTES: 03-30-171299 TAKING LORATADINE 10 MG TABLET 1 TABLET ORALLY ONCE A DAY NEEDED, NOTES: 03-30-171299 TAKING AMLODIPINE BESYLATE 5 MG TABLET 1 TABLET ORALLY TWICE DAILY NEEDED, NOTES: NOT LATELY TAKING NYSTATIN 6 MU/GM POWDER TOPICALLY TO AFFECTED AREA TOPICALLY FOUR TIMES A DAY, NOTES: 03-30-171299 TAKING PREDNISONE 20 MG TABLET 1 TABLET ORALLY ONCE A DAY, NOTES: 03-31-17 0900 TAKING SHOWER CHAIR WITHOUT WHEELS 1 ICD: R26.81, M35.3 DAILY USE TAKING MAY HAVE - - SHOWER WAND ICD: R26.81, M35.3 DAILY TAKING BACTROBAN 2 % CREAM 1 APPLICATION TO AFFECTED AREAS EXTERNALLY THREE TIMES A DAY TAKING ATIVAN 0.5 MG TABLET 1 TABLET ORALLY TAKE ONE HOUR PRIOR TO TEST, AND ON ON ARRIVAL TO TEST LOCATION MDD=2, NOTES: 03-30-171299 TAKING [id number] 50-325-40 MG TABLET 1 TABLET NEEDED ORALLY EVERY 4 HRS PRN HEADACHE MDD=3, NOTES: 02-22-17899 TAKING ROBAXIN-750 750 MG TABLET 1 TABLET ORALLY EVERY 8 HOURS NEEDED, NOTES: 03-31-172016 TAKING MORPHINE SULFATE 15 MG TABLET 1 TABLET NEEDED ORALLY TWICE DAILY PRN PAIN MDD=2, NOTES: 03-30-17899 TAKING METOPROLOL TARTRATE 50 MG TABLET 1 TABLET WITH FOOD ORALLY TWICE A DAY NOT-TAKING DRISDOL 30971 UNIT CAPSULE 1 CAPSULE ORALLY ONCE WEEKLY NOT-TAKING CLOTRIMAZOLE 1 % CREAM 1 APPLICATION TO AFFECTED AREA: APPLY THIN LAYER EXTERNALLY TWICE A DAY NOT-TAKING CLARITHROMYCIN ER 500 MG TABLET EXTENDED RELEASE 24 HOUR 2 TABLETS WITH FOOD ORALLY ONCE A DAY NOT-TAKING LORAZEPAM 0.5 MG TABLET 1 TABLET NEEDED ORALLY TAKE ONE TAB BEFORE ARRIVAL TO CLINIC AND ONE PRIOR TO TREATMENT MDD=2 NOT-TAKING MORPHINE SULFATE 15 MG TABLET 1 TABLET NEEDED ORALLY EVERY 6-8 HRS PRN PAIN MDD=2 NOT-TAKING PROMETHAZINE HCL 25 MG TABLET 1 TABLET NEEDED ORALLY EVERY 12 HRS PRN NAUSEA NOT-TAKING PREDNISONE 10 MG TABLET 1 TABLET ORALLY ONCE A DAY, NOTES: 02-23-17 0800 NOT-TAKING HYDROXYZINE HCL 10 MG TABLET 1 TAB ORALLY FOUR TIMES DAILY NOT-TAKING MORPHINE SULFATE ER 30 MG TABLET EXTENDED RELEASE 1 TABLET ORALLY EVERY 8 HRS CHRONIC PAIN MDD=3 MEDICATION LIST REVIEWED AND RECONCILED WITH THE PATIENT PAST MEDICAL HISTORY FIBROMYALGIA OSTEOPOROSIS HEREDITARY SPHEROCYTOSIS S/P SPLENECTOMY HYPERTHYROIDISM / NODULAR THYROID - 2011 S/P STENTING ENDOMETRIOSIS S/P MISSY / BSO RHEUMATOID ARTHRITIS R HAND NUMBNESS / PARESTHESIAS OBSTRUCTIVE SLEEP APNEA DYSLIPIDEMIA ALLERGIC RHINITIS ANXIETY HYPERTENSION POLYMYALGIA RHEUMATICA SPHEROCYTOSIS ALLERGIES GABAPENTIN: MIGRAINES: ALLERGY LYRICA: FEET SWELLING: ALLERGY NORTRIPTYLINE HCL: ITCHING/RASH: ALLERGY IMITREX: SEVERE HYPERTENSION: SIDE EFFECTS REVIEW OF SYSTEMS REVIEWED BY: PROVIDER: ESTRELLA PAULA . CONSTITUTIONAL: ANY CHANGE IN YOUR MEDICAL CONDITION? NO . CHILLS NO . FEVER NO . INFECTION: DO YOU HAVE NEW INFECTIONS? NO . DO YOU HAVE HISTORY OF MRSA? NO . MUSCULOSKELETAL: ANY NEW PATTERNS OF PAIN OR NUMBNESS? NO . GASTROENTEROLOGY: ANY NEW CHANGE IN BOWEL CONTROL? NO . GENITOURINARY: ANY NEW CHANGE IN BLADDER CONTROL? NO . IS THERE A CHANCE YOU COULD BE ? NO . HEMATOLOGY/LYMPH: DO YOU TAKE ANY BLOOD THINNERS? (FOR EXAMPLE- COUMADIN, PLAVIX, AGGRENOX, PLATEL, PRADAXA, OR XARELTO) NO . WHEN WAS YOUR LAST DOSE? DATE: TIME: . NEUROLOGY: HAVE YOU FALLEN IN THE PAST 6 MONTHS? NO . ANY NEW EXTREMITY NUMBNESS OR WEAKNESS? NO . CARDIOLOGY: DO YOU HAVE A PACEMAKER OR DEFIBRILLATOR? NO . RESPIRATORY: HAVE YOU BEEN SICK IN THE PAST WEEK? NO . FEVER NO . FLU LIKE SYMPTOMS? NO . COUGH NO . INTEGUMENTARY: DO YOU HAVE ANY RASHES OR OPEN SORES? NO . ALLERGIC/IMMUNO: ARE YOU ALLERGIC TO SHELLFISH OR IV DYE? NO . ANY NEW ALLERGIES? NO . PSYCHIATRIC: DO YOU HAVE THOUGHTS OF HURTING YOURSELF OR SOMEONE ELSE? NO . ARE YOU ABUSED, NEGLECTED, OR IN AN UNSAFE ENVIRONMENT? NO . ENDOCRINOLOGY: ARE YOU DIABETIC? NO . OTHER: DO YOU NEED ANY PRESCRIPTIONS? NO . IF YES, PLEASE LIST: ____ . ANY NEW PROBLEMS WITH YOUR MEDICATIONS? NO . WHEN DID YOU LAST EAT? ____ . WHEN DID YOU LAST DRINK? ____ . WHAT DID YOU LAST DRINK? ____ . NAME OF PERSON DRIVING YOU HOME? ____ . DO YOU HAVE ANY OTHER QUESTIONS OR CONCERNS NO . VITAL SIGNS WT 147.8 LBS, HT 61.25 IN, BMI 27.70 INDEX, BP 128/65 MM HG, HR 67 /MIN, RR 18 /MIN, TEMP 97.9 F, OXYGEN SAT % 91%, NA INITIALS AW 1245. EXAMINATION GENERAL EXAMINATION: PSYCHALERT , ORIENTED X 3 , APPROPRIATE MOOD AND AFFECT , TALKATIVE AND CHEERFUL. LUNGS:CLEAR TO AUSCULTATION BILATERALLY, FEW SCHATTERED WHEEZES, CLEARS WITH COUGH. HEART:HEART RATE REGULAR. MUSCULOSKELETAL:MUSCLE STRENGTH TESTING 5/5 BILATERAL UPPER AND LOWER EXTREMITIES. SLOW TO RISE TO STANDING POSITION. POINT TENDERNESS OVER BILATERAL TROCANTER REGIONS. SKIN:MULTIPLE ECCYMOTIC AREAS ON BOTH UPPER ARMS. NEUROLOGIC EXAM:CN'S II-XII GROSSLY INTACT. EOMS INTACT WITHOUT NYSTAGMUS. NO PHOTOPHOBIA TODAY. ASSESSMENTS CHRONIC PAIN SYNDROME - G89.4 (PRIMARY) MIGRAINE WITHOUT AURA, NOT INTRACTABLE, WITHOUT STATUS MIGRAINOSUS - G43.009 (PRIMARY) CHRONIC PRESCRIPTION OPIATE USE - Z79.891 MYALGIA - M79.1 TREATMENT CHRONIC PAIN SYNDROME TRIGGER POINT 3 + ESTRELLA MONTEMAYOR 04/19/2017 12:51:43 PM > LOW BACK, RIGHT SIDE> LEFT NOTES: CONTINUE CURRENT MEDS. PROCEDURE CODES FA211 ESTABILISHED PATIENT [facility] CHARGE [address] INJECT TRIGGER POINTS, =/> 3 G8730 PAIN ASSESS POS TOOL F/U PLAN DOC G8427 DOC MEDS VERIFIED W/PT OR RE DISPOSITION & COMMUNICATION FOLLOW UP AFTER INJECTION (REASON: BACK PAIN/ MIGRAINE) ELECTRONICALLY SIGNED BY ROBYN BARRIENTOS ON 05/15/2017 AT 07:18 PM EDT DISCLAIMER : THIS IS A VISIT SUMMARY EXTRACTED FROM THE [employer] CHART. IT IS NOT A COPY OF THE [employer] PROGRESS NOTE. NOLAN
== END ==
LOC: M PAIN 11:15
PROVIDERS: ATTEND Nurse Practitioner Family
DX: G89.4 Chronic pain syndrome (principal); G43.009 Migraine without aura, not intractable, without status migrainosus; M79.1 Myalgia; M35.3 Polymyalgia rheumatica; F32.9 Major depressive disorder, single episode, unspecified; G47.33 Obstructive sleep apnea (adult) (pediatric); I15.8 Other secondary hypertension; E55.9 Vitamin D deficiency, unspecified; Z88.8 Allergy status to other drugs, medicaments and biological substances; Z79.891 Long term (current) use of opiate analgesic; Z79.82 Long term (current) use of aspirin; Z79.52 Long term (current) use of systemic steroids; Z79.899 Other long term (current) drug therapy

== ENCOUNTER → 2017-04-25 | Outpatient (REF) | payer MEDICARE | LOC: M LAB REF 10:15 | PROVIDERS: ATTEND Student in an Organized Health Care Education/Training Program | DX: C44.42 Squamous cell carcinoma of skin of scalp and neck (principal) ==

== ENCOUNTER → 2017-04-28 | Outpatient (CLI) | payer MEDICARE ==
[~2017-04-28] MED LIST changes: +BUPIVACAINE HCL 0.25% 10 ML VIAL As Ordered ONE; +BUPIVACAINE HCL 0.25% 30 ML VIAL As Ordered ONE; +TRIAMCINOLONE ACETONIDE SUSP 40 MG/ML VIAL (J3301) As Ordered ONE; +diazePAM 5 MG TAB As Ordered ONE; +oxyCODONE 5MG TAB As Ordered ONE
--- NOTE | 2017-05-03 | ECWPNPC ---
PATIENT NAME: HASEEB KURTZ : 1955 GENDER: FEMALE VISIT DATE: 04/28/2017 DISCHARGE DATE: 04/28/17 1622 VISIT LOCKED DATE TIME: PHYSICIAN: GABRIELLE PALOMARES RESOURCE: GABRIELLE PALOMARES REASON FOR APPOINTMENT 1. TPI HISTORY OF PRESENT ILLNESS HISTORY OF PRESENT ILLNESS: PAIN THE PATIENT DESCRIBES THE PAIN... FALL RISK SCREENING: SCREENING :NO FALLS IN THE PAST YEAR CURRENT MEDICATIONS UNKNOWN MORPHINE SULFATE ER 30 MG TABLET EXTENDED RELEASE 1 TABLET ORALLY Q 8 HRS CHRONIC PAIN MDD=3 UNKNOWN ASPIRIN ADULT LOW DOSE 81 MG TABLET DELAYED RELEASE 1 TABLET ORALLY ONCE A DAY, NOTES: 03-30-171299 UNKNOWN ATORVASTATIN CALCIUM 40 MG TABLET 1 TABLET ORALLY ONCE A DAY, NOTES: 03-30-171299 UNKNOWN CALCIUM 1200+D3 600-40-500 MG-MG-UNIT TABLET EXTENDED RELEASE 24 HOUR ORALLY ONCE DAILY, NOTES: 03-30-171299 UNKNOWN COLACE 100 MG CAPSULE 1 CAPSULE NEEDED ORALLY BID, NOTES: 03-30-171299 UNKNOWN CYMBALTA 60 MG CAPSULE DELAYED RELEASE PARTICLES 1 CAPSULE ORALLY ONCE A DAY, NOTES: 03-30-171299 UNKNOWN EFFIENT 10 MG TABLET 1 TABLET ORALLY ONCE A DAY (CESAR), NOTES: 03-30-171299 UNKNOWN HOSPITAL BED _ MISCELLANEOUS 1 ICD: M25.50, M79.1 DAILY UNKNOWN IRBESARTAN-HYDROCHLOROTHIAZIDE 150-12.5 MG TABLET 1 TABLET ORALLY TWICE DAILY/DR GUERRERO, NOTES: 03-30-171299 UNKNOWN LORATADINE 10 MG TABLET 1 TABLET ORALLY ONCE A DAY NEEDED, NOTES: 03-30-171299 UNKNOWN AMLODIPINE BESYLATE 5 MG TABLET 1 TABLET ORALLY TWICE DAILY NEEDED, NOTES: NOT LATELY UNKNOWN NYSTATIN 6 MU/GM POWDER TOPICALLY TO AFFECTED AREA TOPICALLY FOUR TIMES A DAY, NOTES: 03-30-171299 UNKNOWN SHOWER CHAIR WITHOUT WHEELS 1 ICD: R26.81, M35.3 DAILY USE UNKNOWN MAY HAVE - - SHOWER WAND ICD: R26.81, M35.3 DAILY UNKNOWN BACTROBAN 2 % CREAM 1 APPLICATION TO AFFECTED AREAS EXTERNALLY THREE TIMES A DAY UNKNOWN ATIVAN 0.5 MG TABLET 1 TABLET ORALLY TAKE ONE HOUR PRIOR TO TEST, AND ON ON ARRIVAL TO TEST LOCATION MDD=2, NOTES: 03-30-17 1300 UNKNOWN [id number] 50-325-40 MG TABLET 1 TABLET NEEDED ORALLY EVERY 4 HRS PRN HEADACHE MDD=3, NOTES: 02-22-17899 UNKNOWN METOPROLOL TARTRATE 50 MG TABLET 1 TABLET WITH FOOD ORALLY TWICE A DAY UNKNOWN PREDNISONE 20 MG TABLET 1 TABLET ORALLY ONCE A DAY, NOTES: 03-31-17 09 UNKNOWN ROBAXIN-750 750 MG TABLET 1 TABLET ORALLY EVERY 8 HOURS PRN SPASM UNKNOWN MORPHINE SULFATE 15 MG TABLET 1 TABLET NEEDED ORALLY TWICE DAILY PRN PAIN MDD=2 UNKNOWN DRISDOL [id number] UNIT CAPSULE 1 CAPSULE ORALLY ONCE WEEKLY UNKNOWN CLOTRIMAZOLE 1 % CREAM 1 APPLICATION TO AFFECTED AREA: APPLY THIN LAYER EXTERNALLY TWICE A DAY UNKNOWN CLARITHROMYCIN ER 500 MG TABLET EXTENDED RELEASE 24 HOUR 2 TABLETS WITH FOOD ORALLY ONCE A DAY UNKNOWN LORAZEPAM 0.5 MG TABLET 1 TABLET NEEDED ORALLY TAKE ONE TAB BEFORE ARRIVAL TO CLINIC AND ONE PRIOR TO TREATMENT MDD=2 UNKNOWN MORPHINE SULFATE 15 MG TABLET 1 TABLET NEEDED ORALLY EVERY 6-8 HRS PRN PAIN MDD=2 UNKNOWN PROMETHAZINE HCL 25 MG TABLET 1 TABLET NEEDED ORALLY EVERY 12 HRS PRN NAUSEA UNKNOWN PREDNISONE 10 MG TABLET 1 TABLET ORALLY ONCE A DAY, NOTES: 02-23-17 08 UNKNOWN HYDROXYZINE HCL 10 MG TABLET 1 TAB ORALLY FOUR TIMES DAILY UNKNOWN MORPHINE SULFATE ER 30 MG TABLET EXTENDED RELEASE 1 TABLET ORALLY EVERY 8 HRS CHRONIC PAIN MDD=3 PAST MEDICAL HISTORY FIBROMYALGIA OSTEOPOROSIS HEREDITARY SPHEROCYTOSIS S/P SPLENECTOMY HYPERTHYROIDISM / NODULAR THYROID 2011 S/P STENTING ENDOMETRIOSIS S/P MISSY / BSO RHEUMATOID ARTHRITIS R HAND NUMBNESS / PARESTHESIAS OBSTRUCTIVE SLEEP APNEA DYSLIPIDEMIA ALLERGIC RHINITIS ANXIETY HYPERTENSION POLYMYALGIA RHEUMATICA SPHEROCYTOSIS ALLERGIES GABAPENTIN: MIGRAINES: ALLERGY LYRICA: FEET SWELLING: ALLERGY NORTRIPTYLINE HCL: ITCHING/RASH: ALLERGY IMITREX: SEVERE HYPERTENSION: SIDE EFFECTS SOCIAL HISTORY GENERAL: TOBACCO USE ARE YOU A:CURRENT SMOKER ARE YOU INTERESTED IN QUITTING?NOT READY TO QUIT COUNSELED THE PATIENT ON SMOKING EFFECTS, EDUCATION [id number]/05/2017 HOW MANY CIGARETTES A DAY DO YOU SMOKE?6-10 HOW SOON AFTER YOU WAKE UP DO YOU SMOKE YOUR FIRST CIGARETTE?AFTER 60 MIN HOW OFTEN DO YOU SMOKE CIGARETTES?EVERY DAY PATIENT COUNSELED ON THE DANGERS OF TOBACCO USE AND URGED TO QUIT:04/28/2017 ALCOHOL SCREENING DID YOU HAVE A DRINK CONTAINING ALCOHOL IN THE PAST YEAR?NO POINTS0 INTERPRETATIONNEGATIVE RECREATIONAL DRUG USE DRUG USE?NO CAFFEINE CAFFEINE USE?YES HOW OFTEN AND HOW MUCH? 2 CUPS COFFEE DAILY SEXUAL HX HAD SEX IN THE LAST 12 MONTHS (VAGINAL, ORAL, OR ANAL)?NO HIV / HEP-C SCREENING HIV TEST OFFERED TO PATIENT:YES DATE OFFERED:06/02/2012 TEST ACCEPTED:NO REASON:PATIENT DECLINED HEP-C TEST OFFERED TO PATIENT:YES DATE OFFERED:10/15/2013 TEST ACCEPTED:NO REASON:PATIENT DECLINED OCCUPATION: UNEMPLOYED. DIET: REGULAR. EXERCISE: NO REGULAR EXERCISE. MARITAL STATUS: .. OTHERS AT HOME: GRANDSON. PETS: DOG. YAZIDISM [id number] UATSDIN LANGUAGE LANGUAGES SPOKEN:WOLOF EDUCATION LEVEL OF EDUCATION:COLLEGE LEARNING BARRIERS / SPECIAL NEEDS CHANGE FROM LAST VISIT?NO BARRIERS TO LEARNING?NO HEARING IMPAIRED?NO VISION IMPAIRED?NO COGNITIVELY IMPAIRED?NO READINESS TO LEARN?YES LEARNING PREFERENCES?NO LEARNING CAPABILITIES PRESENT?YES EMOTIONAL BARRIERS?NO SPECIAL DEVICES?NO WASHCLOTH FOLDER NEEDED?NO PAIN CLINIC PFS, CLERGY, PUBLIC HEALTH REFERRALS HAS THE PATIENT BEEN EDUCATED REGARDING HIS/HER PLAN OF CARE?YES HAS THE PATIENT BEEN EDUCATED REGARDING PAIN, THE RISK FOR PAIN, THE IMPORTANCE OF EFFECTIVE PAIN MANAGEMENT, AND THE PAIN ASSESSMENT PROCESS?YES PATIENT: ____. REVIEW OF SYSTEMS REVIEWED BY: PROVIDER: . CONSTITUTIONAL: ANY CHANGE IN YOUR MEDICAL CONDITION? NO . CHILLS NO . FEVER NO . INFECTION: DO YOU HAVE NEW INFECTIONS? NO . DO YOU HAVE HISTORY OF MRSA? NO . MUSCULOSKELETAL: ANY NEW PATTERNS OF PAIN OR NUMBNESS? NO . GASTROENTEROLOGY: ANY NEW CHANGE IN BOWEL CONTROL? NO . GENITOURINARY: ANY NEW CHANGE IN BLADDER CONTROL? NO . IS THERE A CHANCE YOU COULD BE ? NO . HEMATOLOGY/LYMPH: DO YOU TAKE ANY BLOOD THINNERS? (FOR EXAMPLE- COUMADIN, PLAVIX, AGGRENOX, PLATEL, PRADAXA, OR XARELTO) NO . WHEN WAS YOUR LAST DOSE? DATE: TIME: 04/27/17@1500 <04/27/17@1500> . NEUROLOGY: HAVE YOU FALLEN IN THE PAST 6 MONTHS? NO . ANY NEW EXTREMITY NUMBNESS OR WEAKNESS? NO . CARDIOLOGY: DO YOU HAVE A PACEMAKER OR DEFIBRILLATOR? NO . RESPIRATORY: HAVE YOU BEEN SICK IN THE PAST WEEK? NO . FEVER NO . FLU LIKE SYMPTOMS? NO . COUGH NO . INTEGUMENTARY: DO YOU HAVE ANY RASHES OR OPEN SORES? NO . ALLERGIC/IMMUNO: ARE YOU ALLERGIC TO SHELLFISH OR IV DYE? NO . ANY NEW ALLERGIES? NO . PSYCHIATRIC: DO YOU HAVE THOUGHTS OF HURTING YOURSELF OR SOMEONE ELSE? NO . ARE YOU ABUSED, NEGLECTED, OR IN AN UNSAFE ENVIRONMENT? NO . ENDOCRINOLOGY: ARE YOU DIABETIC? YES . OTHER: DO YOU NEED ANY PRESCRIPTIONS? NO . IF YES, PLEASE LIST: ____ . ANY NEW PROBLEMS WITH YOUR MEDICATIONS? NO . WHEN DID YOU LAST EAT? 04/27/17 1700 . WHEN DID YOU LAST DRINK? 0700 . WHAT DID YOU LAST DRINK? COFFEE . NAME OF PERSON DRIVING YOU HOME? [employer] . DO YOU HAVE ANY OTHER QUESTIONS OR CONCERNS NO . VITAL SIGNS WT 146.6 LBS, HT 61.25 IN, BMI 27.47 INDEX, BP 104/54 MM HG, HR 72 /MIN, RR 18 /MIN, TEMP 97.9 F, OXYGEN SAT % 96%, SAFE IN ENV? (Y/N) YES, NA INITIALS AW 1407, REVIEWED BY: VD. ASSESSMENTS MYALGIA - M79.1 (PRIMARY) PROCEDURES PN TRIGGER POINT INJECTION WITH STEROIDS PRE PROCEDURE DIAGNOSIS 1. MYALGIA 2. PAIN AT BILATERAL LOWER BACK AREA POST PROCEDURE DIAGNOSIS 1. MYALGIA 2. PAIN AT BILATERAL LOWER BACK AREA PROCEDURE TRIGGER POINT INJECTION AT BILATERAL LOWER BACK AREA SURGEON DR. GABRIELLE PALOMARES CULTURE MEDIA LABORATORY ASSISTANT NONE ANESTHESIA LOCAL PRE PROCEDURE NOTE THE PATIENT HAS A HISTORY OF CHRONIC PAIN AT THE RIGHT AND LEFT LOWER BACK AREA. I EVALUATE THE PATIENT AND REVIEWED THE CHART. THERE IS EVIDENCE OF BANDS OF TISSUE WITH RESTRICTION OF MOVEMENT AND PRESENCE OF TRIGGER POINT AT THE AFFECTED AREA. I WENT OVER THE RISKS, ALTERNATIVES, AND BENEFITS ASSOCIATED WITH THIS PROCEDURE. THE PATIENT WOULD LIKE TO PROCEED AND GIVE CONSENT TO PERFORMED THE PROCEDURE. THE PATIENT DENIES UNEXPLAINABLE WEIGHT LOSS, FEVER, CHILLS, OR NEW CHANGES IN URINARY OR BOWEL CONTROL DESCRIPTION OF PROCEDURE THE PATIENT WAS BROUGHT TO THE PROCEDURE ROOM AND PLACED IN THE SITTING POSITION. THE AREA WAS CLEANED WITH ALCOHOL. THE PROCEDURE WAS DONE USING ASEPTIC STERILE TECHNIQUE. I CHECKED LATERALITY AND THE LEVEL WHERE THE PROCEDURE WAS GOING TO BE PERFORMED WITH THE PATIENT AND THE SUPPORTING STAFF AT THE MOMENT OF THE TIME OUT IN THE PROCEDURE ROOM. USING A 25-GAUGE NEEDLE, TRIGGER POINTS WERE INJECTED AT THE RIGHT AND LEFT LOWER BACK AREA WITH A TOTAL OF 40 ML OF BUPIVACAINE 0.25% AND KENALOG 40 MG. THERE WAS NO EVIDENCE OF BLOOD, PARESTHESIA OR CEREBROSPINAL FLUID DURING THE PROCEDURE. THE PATIENT WAS SENT TO THE RECOVERY ROOM. THE PATIENT WAS MOVING THE EXTREMITIES AND DOING WELL. THERE WAS NO COMPLICATION DURING THE PROCEDURE POST PROCEDURE NOTE THE PATIENT WILL BE SEEN IN A FOLLOW UP IN THE NEXT FEW WEEKS. INSTRUCTIONS WERE GIVEN, QUESTIONS WERE ANSWERED, AND THE PATIENT EXPRESSED UNDERSTANDING AND AGREES WITH THE PLAN. I, CARLOS CHU, DOCUMENTED THE ABOVE INFORMATION ACTING A SCRIBE FOR DR. PALOMARES. I HAVE REVIEWED THE ABOVE DOCUMENT, WRITTEN BY CARLOS MIKE AND I VERIFY THAT IT IS ACCURATE PROCEDURE CODES 17777 INJ TRIGGER POINT 07/26 [facility] [place]UN[place] FOLLOW UP 3 WEEKS ELECTRONICALLY SIGNED BY GABRIELLE PALOMARES MD ON 05/02/2017 AT 02:51 PM EDT DISCLAIMER : THIS IS A VISIT SUMMARY EXTRACTED FROM THE [employer] CHART. IT IS NOT A COPY OF THE [employer] PROGRESS NOTE. NOLAN
== END ==
LOC: M PAIN 14:00
PROVIDERS: ATTEND Anesthesiology
DX: G89.29 Other chronic pain (principal); M79.1 Myalgia; M54.5 Low back pain; I10 Essential (primary) hypertension; E55.9 Vitamin D deficiency, unspecified; Z79.891 Long term (current) use of opiate analgesic; Z79.899 Other long term (current) drug therapy; F17.210 Nicotine dependence, cigarettes, uncomplicated; Z88.8 Allergy status to other drugs, medicaments and biological substances
CPT/HCPCS: 20552; J3301

== ENCOUNTER → 2017-05-19 | Outpatient (CLI) | payer MEDICARE ==
[~2017-05-19] MED LIST changes: -BUPIVACAINE HCL 0.25% 10 ML VIAL As Ordered ONE; -BUPIVACAINE HCL 0.25% 30 ML VIAL As Ordered ONE; -TRIAMCINOLONE ACETONIDE SUSP 40 MG/ML VIAL (J3301) As Ordered ONE; -diazePAM 5 MG TAB As Ordered ONE; -oxyCODONE 5MG TAB As Ordered ONE
--- NOTE | 2017-06-20 00:55 | ECWPNPC ---
PATIENT NAME: HASEEB KURTZ : 1955 GENDER: FEMALE VISIT DATE: 05/19/2017 DISCHARGE DATE: 05/19/17 1359 VISIT LOCKED DATE TIME: PHYSICIAN: ESTRELLA TIRADO RESOURCE: ESTRELLA TIRADO REASON FOR APPOINTMENT 1. POST TPI HISTORY OF PRESENT ILLNESS HISTORY OF PRESENT ILLNESS: PAIN THE PATIENT DESCRIBES THE PAIN... FALL RISK SCREENING: SCREENING :NO FALLS IN THE PAST YEAR TODAY'S VISIT: NOTES: S/P TPI TO LOW BACK WITH STEROIDS ON 04/28/17. RATES PAIN TODAY 6/10. DESCRIBES THE PAIN CONSTANT, ACHING, SHARP, TENDER, THROBBING AND SORE. REPORTS THE PAIN SIG IMPROVED AFTER TPI. WAS ABLE TO BE MORE ACTIVE AND THIS DID PROVOKE A SEVERE MIGRAINE WHICH LASTED ALL DAY . OVERALL HAS HAD DECREASED HEADACHES/MIGRAINES WHICH LAST ONLY 2-3 HOURS AND RESPOND EASILY TO BUTALBITAL. REPORTS 6-7 MIGRAINE EVENTS OVER THE LAST MONTH WHICH HAVE LASTED 2-3 HOURS. IS VERY PLEASED WITH HER PROGGRESS. HAS NOTED LEG CRAMOS ARE RETURNING. . CURRENT MEDICATIONS TAKING MORPHINE SULFATE ER 30 MG TABLET EXTENDED RELEASE 1 TABLET ORALLY Q 8 HRS CHRONIC PAIN MDD=3 TAKING [id number] 50-325-40 MG TABLET 1 TABLET NEEDED ORALLY EVERY 4 HRS PRN HEADACHE MDD=3 TAKING PREDNISONE 20 MG TABLET 1 TABLET ORALLY ONCE A DAY TAKING ASPIRIN ADULT LOW DOSE 81 MG TABLET DELAYED RELEASE 1 TABLET ORALLY ONCE A DAY TAKING ATORVASTATIN CALCIUM 40 MG TABLET 1 TABLET ORALLY ONCE A DAY TAKING CALCIUM 1200+D3 600-40-500 MG-MG-UNIT TABLET EXTENDED RELEASE 24 HOUR ORALLY ONCE DAILY TAKING COLACE 100 MG CAPSULE 1 CAPSULE NEEDED ORALLY BID TAKING CYMBALTA 60 MG CAPSULE DELAYED RELEASE PARTICLES 1 CAPSULE ORALLY ONCE A DAY TAKING EFFIENT 10 MG TABLET 1 TABLET ORALLY ONCE A DAY (CESAR) TAKING HOSPITAL BED _ MISCELLANEOUS 1 ICD: M25.50, M79.1 DAILY TAKING IRBESARTAN-HYDROCHLOROTHIAZIDE 150-12.5 MG TABLET 1 TABLET ORALLY TWICE DAILY/DR CESAR TAKING LORATADINE 10 MG TABLET 1 TABLET ORALLY ONCE A DAY NEEDED TAKING AMLODIPINE BESYLATE 5 MG TABLET 1 TABLET ORALLY TWICE DAILY NEEDED, NOTES: NOT TAKING FOR 2 MONTHS 140/87 AT HOME TODAY TAKING NYSTATIN 6 MU/GM POWDER TOPICALLY TO AFFECTED AREA TOPICALLY FOUR TIMES A DAY TAKING SHOWER CHAIR WITHOUT WHEELS 1 ICD: R26.81, M35.3 DAILY USE TAKING MAY HAVE - - SHOWER WAND ICD: R26.81, M35.3 DAILY TAKING BACTROBAN 2 % CREAM 1 APPLICATION TO AFFECTED AREAS EXTERNALLY THREE TIMES A DAY TAKING METOPROLOL TARTRATE 50 MG TABLET 1 TABLET WITH FOOD ORALLY TWICE A DAY TAKING ROBAXIN-750 750 MG TABLET 1 TABLET ORALLY EVERY 8 HOURS PRN SPASM TAKING MORPHINE SULFATE 15 MG TABLET 1 TABLET NEEDED ORALLY TWICE DAILY PRN PAIN MDD=2 TAKING DRISDOL 86304 UNIT CAPSULE 1 CAPSULE ORALLY ONCE WEEKLY TAKING CLOTRIMAZOLE 1 % CREAM 1 APPLICATION TO AFFECTED AREA: APPLY THIN LAYER EXTERNALLY TWICE A DAY TAKING CLARITHROMYCIN ER 500 MG TABLET EXTENDED RELEASE 24 HOUR 2 TABLETS WITH FOOD ORALLY ONCE A DAY TAKING LORAZEPAM 0.5 MG TABLET 1 TABLET NEEDED ORALLY TAKE ONE TAB BEFORE ARRIVAL TO CLINIC AND ONE PRIOR TO TREATMENT MDD=2 TAKING PROMETHAZINE HCL 25 MG TABLET 1 TABLET NEEDED ORALLY EVERY 12 HRS PRN NAUSEA TAKING MORPHINE SULFATE ER 30 MG TABLET EXTENDED RELEASE 1 TABLET ORALLY EVERY 8 HRS CHRONIC PAIN MDD=3 NOT-TAKING ATIVAN 0.5 MG TABLET 1 TABLET ORALLY TAKE ONE HOUR PRIOR TO TEST, AND ON ON ARRIVAL TO TEST LOCATION MDD=2 NOT-TAKING MORPHINE SULFATE 15 MG TABLET 1 TABLET NEEDED ORALLY EVERY 6-8 HRS PRN PAIN MDD=2 NOT-TAKING PREDNISONE 10 MG TABLET 1 TABLET ORALLY ONCE A DAY, NOTES: 02-23-17 0800 DISCONTINUED HYDROXYZINE HCL 10 MG TABLET 1 TAB ORALLY FOUR TIMES DAILY MEDICATION LIST REVIEWED AND RECONCILED WITH THE PATIENT PAST MEDICAL HISTORY FIBROMYALGIA OSTEOPOROSIS HEREDITARY SPHEROCYTOSIS S/P SPLENECTOMY HYPERTHYROIDISM / NODULAR THYROID 2011 S/P STENTING ENDOMETRIOSIS S/P MISSY / BSO RHEUMATOID ARTHRITIS R HAND NUMBNESS / PARESTHESIAS OBSTRUCTIVE SLEEP APNEA DYSLIPIDEMIA ALLERGIC RHINITIS ANXIETY HYPERTENSION POLYMYALGIA RHEUMATICA SPHEROCYTOSIS ALLERGIES GABAPENTIN: MIGRAINES: ALLERGY LYRICA: FEET SWELLING: ALLERGY NORTRIPTYLINE HCL: ITCHING/RASH: ALLERGY IMITREX: SEVERE HYPERTENSION: SIDE EFFECTS REVIEW OF SYSTEMS REVIEWED BY: PROVIDER: ESTRELLA PAULA . CONSTITUTIONAL: ANY CHANGE IN YOUR MEDICAL CONDITION? LEG CRAMPS WORSENING . CHILLS NO . FEVER NO . INFECTION: DO YOU HAVE NEW INFECTIONS? NO . DO YOU HAVE HISTORY OF MRSA? NO . MUSCULOSKELETAL: ANY NEW PATTERNS OF PAIN OR NUMBNESS? NO . GASTROENTEROLOGY: ANY NEW CHANGE IN BOWEL CONTROL? NO . GENITOURINARY: ANY NEW CHANGE IN BLADDER CONTROL? NO . IS THERE A CHANCE YOU COULD BE ? NO . HEMATOLOGY/LYMPH: DO YOU TAKE ANY BLOOD THINNERS? (FOR EXAMPLE- COUMADIN, PLAVIX, AGGRENOX, PLATEL, PRADAXA, OR XARELTO) NO . WHEN WAS YOUR LAST DOSE? DATE: TIME: . NEUROLOGY: HAVE YOU FALLEN IN THE PAST 6 MONTHS? NO . ANY NEW EXTREMITY NUMBNESS OR WEAKNESS? NO . CARDIOLOGY: DO YOU HAVE A PACEMAKER OR DEFIBRILLATOR? NO . RESPIRATORY: HAVE YOU BEEN SICK IN THE PAST WEEK? NO . FEVER NO . FLU LIKE SYMPTOMS? NO . COUGH NO . INTEGUMENTARY: DO YOU HAVE ANY RASHES OR OPEN SORES? NO . ALLERGIC/IMMUNO: ARE YOU ALLERGIC TO SHELLFISH OR IV DYE? NO . ANY NEW ALLERGIES? NO . PSYCHIATRIC: DO YOU HAVE THOUGHTS OF HURTING YOURSELF OR SOMEONE ELSE? NO . ARE YOU ABUSED, NEGLECTED, OR IN AN UNSAFE ENVIRONMENT? NO . ENDOCRINOLOGY: ARE YOU DIABETIC? YES . OTHER: DO YOU NEED ANY PRESCRIPTIONS? NO . IF YES, PLEASE LIST: ____ . ANY NEW PROBLEMS WITH YOUR MEDICATIONS? NO . WHEN DID YOU LAST EAT? ____ . WHEN DID YOU LAST DRINK? ____ . WHAT DID YOU LAST DRINK? ____ . NAME OF PERSON DRIVING YOU HOME? ____ . DO YOU HAVE ANY OTHER QUESTIONS OR CONCERNS NO . VITAL SIGNS WT 153.6 LBS, HT 61.25 IN, BMI 28.78 INDEX, BP 186/87 L ARM, REPEAT BP 177/74 R ARM, HR 75 /MIN, RR 16 /MIN, TEMP 98.2 F, OXYGEN SAT % 94%, NA INITIALS TL 1317ELEVATED BP, RN N.L. AWARE- TL. EXAMINATION GENERAL EXAMINATION: LUNGS:CLEAR TO AUSCULTATION BILATERALLY. HEART:HEART RATE REGULAR. MUSCULOSKELETAL:NO ECCYMOSIS ON THE LUMBAR SPINE. FEW TRIGGER POINTS OVER LOW BACK. . EXTREMITIES:MULTIPLE ECCCYMOSIS/PETECHIE OVER BILATER UPPER EXTREMITIES.. NEUROLOGIC EXAM:SOME PHOTOPHOBIA TODAY. EOMS INTACT WITHOUT NYSTAGMUS. SPEACH CLEAR, NO SLURRING. NO DYSARTHRIA. ASSESSMENTS CHRONIC PAIN SYNDROME - G89.4 (PRIMARY) MIGRAINE WITHOUT AURA, NOT INTRACTABLE, WITHOUT STATUS MIGRAINOSUS - G43.009 (PRIMARY) CHRONIC PRESCRIPTION OPIATE USE - Z79.891 MYALGIA - M79.1 TREATMENT CHRONIC PAIN SYNDROME STOP ROBAXIN-750 TABLET, 750 MG, 1 TABLET, ORALLY, EVERY 8 HOURS PRN SPASM START METHOCARBAMOL TABLET, 750 MG, 1 TABLET, ORALLY, EVERY 6 HRS PRN SPASM, 30 DAY(S), 120, REFILLS 2 NOTES: MAY INCEREASE METHOCAROBAL TO MAX 4 PER DAY. BE SURE GETTING ADEQUETE FLUIDS. CLINICAL NOTES: [employer]STOP REGISTRY REVIEWED AND DEMNOSTRATES COMPLLIANCE. (REF # [id number]) BRINGS IN MEDICATIONS WHICH IS APPROPRIATE FOR WHAT WAS DISPENSED. RECENT URINE TOXICOLOGY REVIEWED. NO UNAUTHORIZED MEDICATIONS. NO ILLICIT SUBSTANCES AND PRESCRIBED MEDICATIONS WERE PRESENT. , RISKS AND BENEFITS OF NARCOTIC/OPIOD MEDICATIONS WERE REVIEWED WITH PATIENT - THIS INCLUDES BUT IS NOT LIMITED TO RISK OF DEPENDANCE/DEVELOPMENT OF ADDICTION, MOOD DISTURBANCE AND DEPRESSION, OSTEOPOROSIS, HORMONAL AND LABIDAL CHANGES, RESPIRATORY DEPRESSION AND . PATIENT IS ADVISED NOT TO DRIVE WHILE ON THESE MEDICATIONS. PROCEDURE CODES FA211 ESTABILISHED PATIENT [facility] FACILITY CHARGE G8730 PAIN ASSESS POS TOOL F/U PLAN DOC G8427 DOC MEDS VERIFIED W/PT OR RE DISPOSITION & COMMUNICATION FOLLOW UP LATE MAY (REASON: MIGRAINE/BACKPAIN) ELECTRONICALLY SIGNED BY ROBYN BARRIENTOS ON 06/19/2017 AT 12:14 PM EST DISCLAIMER : THIS IS A VISIT SUMMARY EXTRACTED FROM THE [employer] CHART. IT IS NOT A COPY OF THE [employer] PROGRESS NOTE. NOLAN
== END ==
LOC: M PAIN 13:00
PROVIDERS: ATTEND Nurse Practitioner Family
DX: G89.4 Chronic pain syndrome (principal); G43.009 Migraine without aura, not intractable, without status migrainosus; Z79.891 Long term (current) use of opiate analgesic; M79.1 Myalgia; I10 Essential (primary) hypertension; I25.2 Old myocardial infarction; Z79.82 Long term (current) use of aspirin; Z79.899 Other long term (current) drug therapy; Z88.8 Allergy status to other drugs, medicaments and biological substances

== ENCOUNTER → 2017-06-20 | Outpatient (CLI) | payer MEDICARE ==
--- NOTE | 2017-07-09 00:42 | ECWPNPC ---
PATIENT NAME: HASEEB KURTZ : 1955 GENDER: FEMALE VISIT DATE: 06/20/2017 DISCHARGE DATE: 06/20/17 1349 VISIT LOCKED DATE TIME: PHYSICIAN: ESTRELLA TIRADO RESOURCE: ESTRELLA TIRADO REASON FOR APPOINTMENT 1. BACK HISTORY OF PRESENT ILLNESS HISTORY OF PRESENT ILLNESS: PAIN THE PATIENT DESCRIBES THE PAIN... FALL RISK SCREENING: SCREENING :NO FALLS IN THE PAST YEAR TODAY'S VISIT: NOTES: BOTOX IS DUE 06/30/17. HAS HAD ABOUT 4 MIGRAINES OVERTHE LAST 4 WEEKS AND 3 OF THESE REQUIRED MIGRAINE MED FOR. REQUIRED NAUSEA MEDICATION ON 4 OCCASIONS. OVERALL MIGRAINES HAVE BEEN LESS INTENSE, RESPONDED TO MEDICATIONS, AND HAVE CAUSED LESS PHOTOPHOBIA. REPORTS LABS HAVE NOW SHOWN SED RRATE IS WITHIN NORMAL LIMITS. PCP IS DISCUSSING WEAN OF PREDNISONE. . CURRENT MEDICATIONS TAKING [id number] 50-325-40 MG TABLET 1 TABLET NEEDED ORALLY EVERY 4 HRS PRN HEADACHE MDD=3 TAKING PREDNISONE 20 MG TABLET 1 TABLET ORALLY ONCE A DAY TAKING ASPIRIN ADULT LOW DOSE 81 MG TABLET DELAYED RELEASE 1 TABLET ORALLY ONCE A DAY TAKING ATORVASTATIN CALCIUM 40 MG TABLET 1 TABLET ORALLY ONCE A DAY TAKING CALCIUM 1200+D3 600-40-500 MG-MG-UNIT TABLET EXTENDED RELEASE 24 HOUR ORALLY ONCE DAILY TAKING COLACE 100 MG CAPSULE 1 CAPSULE NEEDED ORALLY BID TAKING CYMBALTA 60 MG CAPSULE DELAYED RELEASE PARTICLES 1 CAPSULE ORALLY ONCE A DAY TAKING EFFIENT 10 MG TABLET 1 TABLET ORALLY ONCE A DAY (CESAR) TAKING HOSPITAL BED _ MISCELLANEOUS 1 ICD: M25.50, M79.1 DAILY TAKING IRBESARTAN-HYDROCHLOROTHIAZIDE 150-12.5 MG TABLET 1 TABLET ORALLY TWICE DAILY/DR CESAR TAKING LORATADINE 10 MG TABLET 1 TABLET ORALLY ONCE A DAY NEEDED TAKING AMLODIPINE BESYLATE 5 MG TABLET 1 TABLET ORALLY TWICE DAILY NEEDED, NOTES: NOT TAKING FOR 2 MONTHS 140/87 AT HOME TODAY TAKING NYSTATIN 6 MU/GM POWDER TOPICALLY TO AFFECTED AREA TOPICALLY FOUR TIMES A DAY TAKING SHOWER CHAIR WITHOUT WHEELS 1 ICD: R26.81, M35.3 DAILY USE TAKING MAY HAVE - - SHOWER WAND ICD: R26.81, M35.3 DAILY TAKING BACTROBAN 2 % CREAM 1 APPLICATION TO AFFECTED AREAS EXTERNALLY THREE TIMES A DAY TAKING METOPROLOL TARTRATE 50 MG TABLET 1 TABLET WITH FOOD ORALLY TWICE A DAY TAKING DRISDOL 04255 UNIT CAPSULE 1 CAPSULE ORALLY ONCE WEEKLY TAKING CLOTRIMAZOLE 1 % CREAM 1 APPLICATION TO AFFECTED AREA: APPLY THIN LAYER EXTERNALLY TWICE A DAY TAKING CLARITHROMYCIN ER 500 MG TABLET EXTENDED RELEASE 24 HOUR 2 TABLETS WITH FOOD ORALLY ONCE A DAY TAKING LORAZEPAM 0.5 MG TABLET 1 TABLET NEEDED ORALLY TAKE ONE TAB BEFORE ARRIVAL TO CLINIC AND ONE PRIOR TO TREATMENT MDD=2 TAKING PROMETHAZINE HCL 25 MG TABLET 1 TABLET NEEDED ORALLY EVERY 12 HRS PRN NAUSEA TAKING METHOCARBAMOL 750 MG TABLET 1 TABLET ORALLY EVERY 6 HRS PRN SPASM TAKING MORPHINE SULFATE 15 MG TABLET 1 TABLET NEEDED ORALLY TWICE DAILY PRN PAIN MDD=2 TAKING MORPHINE SULFATE ER 30 MG TABLET EXTENDED RELEASE 1 TABLET ORALLY Q 8 HRS CHRONIC PAIN MDD=3 TAKING ATIVAN 0.5 MG TABLET 1 TABLET ORALLY TAKE ONE HOUR PRIOR TO TEST, AND ON ON ARRIVAL TO TEST LOCATION MDD=2 NOT-TAKING MORPHINE SULFATE ER 30 MG TABLET EXTENDED RELEASE 1 TABLET ORALLY EVERY 8 HRS CHRONIC PAIN MDD=3 NOT-TAKING MORPHINE SULFATE 15 MG TABLET 1 TABLET NEEDED ORALLY EVERY 6-8 HRS PRN PAIN MDD=2 NOT-TAKING PREDNISONE 10 MG TABLET 1 TABLET ORALLY ONCE A DAY, NOTES: 02-23-17 0800 MEDICATION LIST REVIEWED AND RECONCILED WITH THE PATIENT PAST MEDICAL HISTORY FIBROMYALGIA OSTEOPOROSIS HEREDITARY SPHEROCYTOSIS S/P SPLENECTOMY HYPERTHYROIDISM / NODULAR THYROID - 2011 S/P STENTING ENDOMETRIOSIS S/P MISSY / BSO RHEUMATOID ARTHRITIS R HAND NUMBNESS / PARESTHESIAS OBSTRUCTIVE SLEEP APNEA DYSLIPIDEMIA ALLERGIC RHINITIS ANXIETY HYPERTENSION POLYMYALGIA RHEUMATICA SPHEROCYTOSIS ALLERGIES GABAPENTIN: MIGRAINES: ALLERGY LYRICA: FEET SWELLING: ALLERGY NORTRIPTYLINE HCL: ITCHING/RASH: ALLERGY IMITREX: SEVERE HYPERTENSION: SIDE EFFECTS SOCIAL HISTORY GENERAL: TOBACCO USE ARE YOU A:CURRENT SMOKER ARE YOU INTERESTED IN QUITTING?NOT READY TO QUIT COUNSELED THE PATIENT ON SMOKING EFFECTS, EDUCATION [id number]/05/2017 HOW MANY CIGARETTES A DAY DO YOU SMOKE?6-10 HOW SOON AFTER YOU WAKE UP DO YOU SMOKE YOUR FIRST CIGARETTE?AFTER 60 MIN HOW OFTEN DO YOU SMOKE CIGARETTES?EVERY DAY PATIENT COUNSELED ON THE DANGERS OF TOBACCO USE AND URGED TO QUIT:04/28/2017 ADDITIONAL FINDINGS: TOBACCO NON-USER NOT INTERESTED IN QUITTING YET / 06/20/17 ALCOHOL SCREENING DID YOU HAVE A DRINK CONTAINING ALCOHOL IN THE PAST YEAR?NO POINTS0 INTERPRETATIONNEGATIVE RECREATIONAL DRUG USE DRUG USE?NO CAFFEINE CAFFEINE USE?YES HOW OFTEN AND HOW MUCH? 2 CUPS COFFEE DAILY SEXUAL HX HAD SEX IN THE LAST 12 MONTHS (VAGINAL, ORAL, OR ANAL)?NO HIV / HEP-C SCREENING HIV TEST OFFERED TO PATIENT:YES DATE OFFERED:06/02/2012 TEST ACCEPTED:NO REASON:PATIENT DECLINED HEP-C TEST OFFERED TO PATIENT:YES DATE OFFERED:10/15/2013 TEST ACCEPTED:NO REASON:PATIENT DECLINED OCCUPATION: UNEMPLOYED. DIET: REGULAR. EXERCISE: NO REGULAR EXERCISE. MARITAL STATUS: .. OTHERS AT HOME: GRANDSON. PETS: DOG. 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 ADVANCE DIRECTIVES HEALTH CARE PROXY?NO WOULD YOU LIKE MORE INFORMATION?YES GAVE HCP INFO REVIEW OF SYSTEMS REVIEWED BY: PROVIDER: . CONSTITUTIONAL: ANY CHANGE IN YOUR MEDICAL CONDITION? NO . CHILLS NO . FEVER NO . INFECTION: DO YOU HAVE NEW INFECTIONS? NO . DO YOU HAVE HISTORY OF MRSA? NO . MUSCULOSKELETAL: ANY NEW PATTERNS OF PAIN OR NUMBNESS? NO . GASTROENTEROLOGY: ANY NEW CHANGE IN BOWEL CONTROL? NO . GENITOURINARY: ANY NEW CHANGE IN BLADDER CONTROL? NO . IS THERE A CHANCE YOU COULD BE ? NO . HEMATOLOGY/LYMPH: DO YOU TAKE ANY BLOOD THINNERS? (FOR EXAMPLE- COUMADIN, PLAVIX, AGGRENOX, PLATEL, PRADAXA, OR XARELTO) YES, EFFIENT . WHEN WAS YOUR LAST DOSE? DATE: TIME: . NEUROLOGY: HAVE YOU FALLEN IN THE PAST 6 MONTHS? NO . ANY NEW EXTREMITY NUMBNESS OR WEAKNESS? NO . CARDIOLOGY: DO YOU HAVE A PACEMAKER OR DEFIBRILLATOR? NO . RESPIRATORY: HAVE YOU BEEN SICK IN THE PAST WEEK? NO . FEVER NO . FLU LIKE SYMPTOMS? NO . COUGH NO . INTEGUMENTARY: DO YOU HAVE ANY RASHES OR OPEN SORES? NO . ALLERGIC/IMMUNO: ARE YOU ALLERGIC TO SHELLFISH OR IV DYE? NO . ANY NEW ALLERGIES? NO . PSYCHIATRIC: DO YOU HAVE THOUGHTS OF HURTING YOURSELF OR SOMEONE ELSE? NO . ARE YOU ABUSED, NEGLECTED, OR IN AN UNSAFE ENVIRONMENT? NO . ENDOCRINOLOGY: ARE YOU DIABETIC? YES . OTHER: DO YOU NEED ANY PRESCRIPTIONS? YES . IF YES, PLEASE LIST: BUTALBITAL . ANY NEW PROBLEMS WITH YOUR MEDICATIONS? NO . WHEN DID YOU LAST EAT? ____ . WHEN DID YOU LAST DRINK? ____ . WHAT DID YOU LAST DRINK? ____ . NAME OF PERSON DRIVING YOU HOME? ____ . DO YOU HAVE ANY OTHER QUESTIONS OR CONCERNS NO . VITAL SIGNS WT 151.4 LBS, HT 61.25 IN, BMI 28.37 INDEX, BP 155/75 MM HG, HR 68 /MIN, RR 16 /MIN, TEMP 96.9 F, OXYGEN SAT % 97%, NA INITIALS TL 1313, REVIEWED BY: NL. EXAMINATION GENERAL EXAMINATION: LUNGS:CLEAR TO AUSCULTATION BILATERALLY. HEART:HEART RATE REGULAR. MUSCULOSKELETAL:PALPATION: POSITIVE FOR TENDERNESS OVER L/S SPINE. RISES EASILY TODAY TO STANDING POSITION. EXTREMITIES:MULTIPLE ECCCYMOSIS/PETECHIE OVER BILATER UPPER EXTREMITIES.. NEUROLOGIC EXAM:SOME PHOTOPHOBIA TODAY. EOMS INTACT WITHOUT NYSTAGMUS. SPEACH CLEAR, NO SLURRING. NO DYSARTHRIA. ASSESSMENTS CHRONIC PAIN SYNDROME - G89.4 (PRIMARY) MIGRAINE WITHOUT AURA, NOT INTRACTABLE, WITHOUT STATUS MIGRAINOSUS - G43.009 (PRIMARY) CHRONIC PRESCRIPTION OPIATE USE - Z79.891 MYALGIA - M79.1 TREATMENT CHRONIC PAIN SYNDROME REFILL MORPHINE SULFATE TABLET, 15 MG, 1 TABLET NEEDED, ORALLY, TWICE DAILY PRN PAIN MDD=2, 30 DAY(S), 60, REFILLS 0 NOTES: DO NOT HOLD EFFIENT FOR INJECTIONS. CLINICAL NOTES: ISTOP REGISTRY REVIEWED AND DEMNOSTRATES COMPLLIANCE.(REF # [id number]) BRINGS IN MEDICATIONS WHICH IS APPROPRIATE FOR WHAT WAS DISPENSED. RECENT URINE TOXICOLOGY REVIEWED. NO UNAUTHORIZED MEDICATIONS. NO ILLICIT SUBSTANCES AND PRESCRIBED MEDICATIONS WERE PRESENT. , RISKS AND BENEFITS OF NARCOTIC/OPIOD MEDICATIONS WERE REVIEWED WITH PATIENT - THIS INCLUDES BUT IS NOT LIMITED TO RISK OF DEPENDANCE/DEVELOPMENT OF ADDICTION, MOOD DISTURBANCE AND DEPRESSION, OSTEOPOROSIS, HORMONAL AND LABIDAL CHANGES, RESPIRATORY DEPRESSION AND . PATIENT IS ADVISED NOT TO DRIVE WHILE ON THESE MEDICATIONS. MIGRAINE WITHOUT AURA, NOT INTRACTABLE, WITHOUT STATUS MIGRAINOSUS CHEMODENERVATION (BOTOX) MISC-MIGRAINE HEADACHESESTRELLA TIRADO 06/20/2017 1:30:10 PM > DUE AFTER 06/30/17. MYALGIA REFILL [id number] TABLET, 50-325-40 MG, 1 TABLET NEEDED, ORALLY, EVERY 4 HRS PRN HEADACHE MDD=3, 3 DOSES, 90, REFILLS 0 TRIGGER POINT 3 + AREASESTRELLA TIRADO Tony 06/20/2017 1:31:48 PM > LOW BACK/SACRUM PREVENTIVE MEDICINE DISCUSSED PRE PROCEDURE CARE WITH PT EXPRESSING UNDERSTANDING. PROCEDURE CODES FA211 ESTABILISHED PATIENT [facility] CHARGE G8730 PAIN ASSESS POS TOOL F/U PLAN DOC G8427 DOC MEDS VERIFIED W/PT OR RE DISPOSITION & COMMUNICATION FOLLOW UP BOTOX, 2 WEEKS LATER THEN FOLLOWUP VISIT (REASON: CHECK AUTH FOR BOTOX AND TPI) ELECTRONICALLY SIGNED BY ROBYN BARRIENTOS ON 07/08/2017 AT 07:50 PM EST DISCLAIMER : THIS IS A VISIT SUMMARY EXTRACTED FROM THE [employer] CHART. IT IS NOT A COPY OF THE [employer] PROGRESS NOTE. NOLAN
== END ==
LOC: M PAIN 13:00
PROVIDERS: ATTEND Nurse Practitioner Family
DX: G89.4 Chronic pain syndrome (principal); G43.009 Migraine without aura, not intractable, without status migrainosus; M79.1 Myalgia; D58.0 Hereditary spherocytosis; F32.9 Major depressive disorder, single episode, unspecified; E55.9 Vitamin D deficiency, unspecified; F17.210 Nicotine dependence, cigarettes, uncomplicated; Z88.8 Allergy status to other drugs, medicaments and biological substances; Z79.01 Long term (current) use of anticoagulants; Z79.52 Long term (current) use of systemic steroids; Z79.82 Long term (current) use of aspirin; Z79.891 Long term (current) use of opiate analgesic; Z79.899 Other long term (current) drug therapy; Z90.81 Acquired absence of spleen

== ENCOUNTER → 2017-07-13 | Outpatient (CLI) | payer MEDICARE ==
[~2017-07-13] MED LIST changes: -AMIT25TA PO; -BENA25CA2 PO; +BUPIVACAINE HCL 0.25% 10 ML VIAL As Ordered; +BUPIVACAINE HCL 0.25% 30 ML VIAL As Ordered; -CALC1TAB16 PO; -CHAN1PAK9 PO; -CLAR10CA3 PO; -CYMB60CA3 PO; -DOCU10CA PO; -EFFI10TA4 PO; -EQ A1TAB12 PO; -FLON0.054; -FOLI1TAB4 PO; -HYDR50TA70 PO; -IRBE150T14 PO; -MECL-68 PO; -MELO15TA4 PO; -MORP-38 PO; -NIAC500T5 PO; -NITR4TASL SL; -OXYC15TA76 PO; -OXYC1TAB16 PO; -OXYC20TA40 PO; -PERC10TA26 PO; -PRAV40TA2 PO; -PRED10TA PO; -PREG50CA PO; -REQU2TAB3 PO; -ROBA750T4 PO; -SKEL800T97 PO; -SOMA350T PO; -TOPR50TA PO; -TRIA0.2571 PO; +TRIAMCINOLONE ACETONIDE SUSP 40 MG/ML VIAL (J3301) As Ordered; -VITA20008 PO; -VOLT1GEL15 TD; -ZOFR20TA PO; +diazePAM 5 MG TAB As Ordered; +oxyCODONE 5MG TAB As Ordered
== END ==
LOC: M PAIN 11:45
DX: M53.3 Sacrococcygeal disorders, not elsewhere classified (principal); M79.1 Myalgia; I25.2 Old myocardial infarction; M35.3 Polymyalgia rheumatica; G47.33 Obstructive sleep apnea (adult) (pediatric); I10 Essential (primary) hypertension; F32.9 Major depressive disorder, single episode, unspecified; G43.709 Chronic migraine without aura, not intractable, without status migrainosus; G47.00 Insomnia, unspecified; E55.9 Vitamin D deficiency, unspecified; F41.9 Anxiety disorder, unspecified; E11.9 Type 2 diabetes mellitus without complications; F17.210 Nicotine dependence, cigarettes, uncomplicated; Z13.1 Encounter for screening for diabetes mellitus; Z13.220 Encounter for screening for lipoid disorders; Z12.11 Encounter for screening for malignant neoplasm of colon; Z88.8 Allergy status to other drugs, medicaments and biological substances; Z79.899 Other long term (current) drug therapy; Z79.01 Long term (current) use of anticoagulants; Z79.82 Long term (current) use of aspirin; Z79.891 Long term (current) use of opiate analgesic; Z79.52 Long term (current) use of systemic steroids
CPT/HCPCS: J3301

== ENCOUNTER → 2017-07-13 | Outpatient (CLI) | payer MEDICARE ==
[~2017-07-13] MED LIST changes: +AMIT25TA PO; +BENA25CA2 PO; -BUPIVACAINE HCL 0.25% 10 ML VIAL As Ordered; -BUPIVACAINE HCL 0.25% 30 ML VIAL As Ordered; +CALC1TAB16 PO; +CHAN1PAK9 PO; +CLAR10CA3 PO; +CYMB60CA3 PO; +DOCU10CA PO; +EFFI10TA4 PO; +EQ A1TAB12 PO; +FLON0.054; +FOLI1TAB4 PO; +HYDR50TA70 PO; +IRBE150T14 PO; +MECL-68 PO; +MELO15TA4 PO; +MORP-38 PO; +NIAC500T5 PO; +NITR4TASL SL; +OXYC15TA76 PO; +OXYC1TAB16 PO; +OXYC20TA40 PO; +PERC10TA26 PO; +PRAV40TA2 PO; +PRED10TA PO; +PREG50CA PO; +REQU2TAB3 PO; +ROBA750T4 PO; +SKEL800T97 PO; +SOMA350T PO; +TOPR50TA PO; +TRIA0.2571 PO; -TRIAMCINOLONE ACETONIDE SUSP 40 MG/ML VIAL (J3301) As Ordered; +VITA20008 PO; +VOLT1GEL15 TD; +ZOFR20TA PO; -diazePAM 5 MG TAB As Ordered; -oxyCODONE 5MG TAB As Ordered
== END ==
LOC: M LAB 10:08
PROVIDERS: ATTEND Student in an Organized Health Care Education/Training Program
DX: Z13.1 Encounter for screening for diabetes mellitus (principal); Z13.220 Encounter for screening for lipoid disorders; E55.9 Vitamin D deficiency, unspecified; Z12.11 Encounter for screening for malignant neoplasm of colon

== ENCOUNTER → 2017-07-14 | Outpatient (REF) | payer MEDICARE | LOC: M SFHCPLAZ 11:52 | PROVIDERS: ATTEND Student in an Organized Health Care Education/Training Program | DX: Z13.220 Encounter for screening for lipoid disorders (principal); E55.9 Vitamin D deficiency, unspecified; Z13.1 Encounter for screening for diabetes mellitus; Z12.11 Encounter for screening for malignant neoplasm of colon ==

== ENCOUNTER → 2017-07-15 | Outpatient (REF) | payer MEDICARE | LOC: M LAB REF 15:18 | PROVIDERS: ATTEND Family Medicine | DX: L57.9 Skin changes due to chronic exposure to nonionizing radiation, unspecified (principal); I10 Essential (primary) hypertension; M79.7 Fibromyalgia ==

== ENCOUNTER → 2017-07-27 | Outpatient (CLI) | payer MEDICARE ==
[2017-07-27 11:42] LABS: ERYTHROCYTE SEDIMENTATION RATE 6 mm/hr (0-30)
== END ==
LOC: M LAB 10:15
DX: M35.3 Polymyalgia rheumatica (principal)
CPT/HCPCS: 36415

== ENCOUNTER → 2017-07-27 | Outpatient (REF) | payer MEDICARE | LOC: M SFHCPLAZ 09:03 | DX: M35.3 Polymyalgia rheumatica (principal); Z53.8 Procedure and treatment not carried out for other reasons ==

== ENCOUNTER 2017-08-04 09:17 | Inpatient (IN) | payer MEDICARE ==
[2017-08-04] MEDS: ONDANSETRON 4MG/2ML VIAL (J2405) IV ×2 (10:13→13:57)
[2017-08-04] MEDS: MORPHINE 4 MG/ML 1ML SYRINGE IV ×2 (10:14→11:59)
[2017-08-04] MEDS: NS 1,000 ML IV ×3 (10:14→18:30)
[2017-08-04 10:24] LABS: HEMATOCRIT 47.6 % (36.0-47.0); HEMOGLOBIN 16.6 g/dl (12.0-16.0); MEAN CORPUSCULAR HEMOGLOBIN 31.6 pg (27.0-33.0); MEAN CORPUSCULAR HGB CONC 34.9 g/dl (32.0-36.5); MEAN CORPUSCULAR VOLUME 90.7 fl (80.0-96.0); PLATELET COUNT, AUTOMATED 318 10^3/uL (150-450); RED BLOOD COUNT 5.25 10^6/uL (4.00-5.40)
[2017-08-04 10:26] LABS: ADD MANUAL DIFFER YES; DIFF SLIDE NUMBER 181; POSITIVE DIFF POS FLAG; WHITE BLOOD COUNT 24.7 10^3/uL (4.0-10.0)
[2017-08-04 10:53] LABS: LACTIC ACID SEPSIS PROTOCOL 3.2 MMOL/L (0.4-2.0)
[2017-08-04 10:54] LABS: ALBUMIN 3.3 GM/DL (3.2-5.2); ALBUMIN/GLOBULIN RATIO 0.85 (1.00-1.93); ALKALINE PHOSPHATASE 89 U/L (45-117); ALT/SGPT 19 U/L (12-78); ANION GAP 9 MEQ/L (8-16); AST/SGOT 10 U/L (7-37); BILIRUBIN,DIRECT 0.2 MG/DL (0.0-0.2); BLOOD UREA NITROGEN 12 MG/DL (7-18); CALCIUM LEVEL 10.1 MG/DL (8.8-10.2); CARBON DIOXIDE LEVEL 31 MEQ/L (21-32); CHLORIDE LEVEL 99 MEQ/L (98-107); CREATININE FOR GFR 0.86 MG/DL (0.55-1.02); GLOMERULAR FILTRATION RATE > 60.0 (>45); GLUCOSE, FASTING 157 MG/DL (80-110); LIPASE 145 U/L (73-393); POTASSIUM SERUM 3.6 MEQ/L (3.5-5.1); SODIUM LEVEL 139 MEQ/L (136-145); TOTAL PROTEIN 7.2 GM/DL (6.4-8.2)
[2017-08-04] MEDS ORDERED: ISOVUE-370 76% 100ML VIAL (Q9967) As Ordered (10:58)
[2017-08-04 11:03] LABS: PROTHROMBIN TIME 13.3 SECONDS (12.4-14.5)
[2017-08-04 11:08] LABS: ATYPICAL LYMPH 16 % (0-5); EOSINOPHILS 1 % (0-5); LYMPHOCYTES 6 % (16-52); MONOCYTES 13 % (0-8); NEUTROPHILS 64 % (35-75); NUCLEATED RED BLOOD CELL 1 % (0-0); PLATELET ESTIMATE NORMAL (NORMAL)
[2017-08-04 11:10] LABS: POIKILOCYTOSIS 1+
[2017-08-04 11:49] LABS: KETONE, URINE AUTO RFX NEGATIVE (NEGATIVE); LEUKOCYTE ESTERASE UR AUTO RFX NEGATIVE (NEGATIVE); MUCUS, URINE RFX SMALL (NEGATIVE); RBC, URINE AUTO RFX 2 /HPF (0-3); SPECIFIC GRAVITY UR AUTO RFX 1.048 (1.002-1.035); SQUAM EPITHELIAL CELL UR AURFX 2 /HPF (0-6); WBC, URINE AUTO RFX 3 /HPF (0-3)
[2017-08-04 11:50] LABS: NITRITE, URINE AUTO RFX POSITIVE (NEGATIVE)
[2017-08-04 12:38] LABS: CONTROL LINE MONO RF C INT CTR LINE PRESENT; MONO REFLEX EBV COMP NEGATIVE (NEGATIVE)
[2017-08-04] MEDS: metroNIDAZOLE 500 MG in APPROPRIATE DILUENT 1 EA IV ×2 (12:50→20:59)
[2017-08-04] MEDS: CIPROFLOXACIN 400 MG in APPROPRIATE DILUENT 1 EA IV (13:58)
[2017-08-04] MEDS: PERCOCET 5MG/325MG TAB PO (13:58)
[2017-08-04] MEDS ORDERED: ONDANSETRON 4MG/2ML VIAL (J2405) IV (15:00)
[2017-08-04] MEDS ORDERED: DOCUSATE SODIUM 100 MG CAP PO (15:30)
[2017-08-04 16:17] LABS: INR 1.05; PROTHROMBIN TIME 13.8 SECONDS (12.4-14.5)
[2017-08-04 18:10] LABS: MEAN CORPUSCULAR HEMOGLOBIN 31.8 pg (27.0-33.0); MEAN CORPUSCULAR HGB CONC 34.6 g/dl (32.0-36.5); MEAN CORPUSCULAR VOLUME 91.7 fl (80.0-96.0); PLATELET COUNT, AUTOMATED 281 10^3/uL (150-450); RED BLOOD COUNT 4.47 10^6/uL (4.00-5.40); RED CELL DISTRIBUTION WIDTH 13.2 % (11.5-14.5)
[2017-08-04 18:19] LABS: POSITIVE DIFF POS FLAG; POSITIVE MORPH POS FLAG
[2017-08-04 18:20] LABS: ADD MANUAL DIFFER YES; DIFF SLIDE NUMBER 305; WHITE BLOOD COUNT 27.3 10^3/uL (4.0-10.0)
[2017-08-04 18:23] LABS: HEMOGLOBIN 14.2 g/dl (12.0-16.0)
[2017-08-04 18:35] LABS: ATYPICAL LYMPH 3 % (0-5); EOSINOPHILS 1 % (0-5); LYMPHOCYTES 29 % (16-52); MONOCYTES 4 % (0-8); NEUTROPHILS 63 % (35-75); PLATELET ESTIMATE NORMAL (NORMAL)
[2017-08-04 18:36] LABS: BURR CELLS 1+
[2017-08-04] MEDS: METHOCARBAMOL 750 MG TAB PO (20:58)
[2017-08-04] MEDS: predniSONE 20 MG TAB PO (20:58)
[2017-08-04] MEDS: ATORVASTATIN 20 MG TAB PO (20:58)
[2017-08-04] MEDS: MORPHINE 30 MG SA TAB PO (21:00)
[2017-08-04] MEDS ORDERED: MORPHINE 30 MG TAB **MSIR PO (21:00)
[2017-08-05 00:37] LABS: BASO # 0.1 10^3/uL (0.0-0.2); BASO % 0.3 % (0.0-1.0); EOS # 0.2 10^3/uL (0.0-0.50); EOS % 0.8 % (0.0-3.0); HEMATOCRIT 39.8 % (36.0-47.0); HEMOGLOBIN 13.7 g/dl (12.0-16.0); IMMATURE GRANULOCYTE # 0.2 10^3/uL (0-0); IMMATURE GRANULOCYTE % 0.8 % (0-0); LYMPH # 2.5 10^3/uL (1.5-4.5); LYMPH % 11.9 % (24.0-44.0); MEAN CORPUSCULAR HEMOGLOBIN 31.4 pg (27.0-33.0); MEAN CORPUSCULAR HGB CONC 34.4 g/dl (32.0-36.5); MEAN CORPUSCULAR VOLUME 91.1 fl (80.0-96.0); MONO # 0.7 10^3/uL (0.0-0.8); MONO % 3.2 % (0.0-5.0); NEUTROPHILS # 17.8 10^3/uL (1.8-7.7); PLATELET COUNT, AUTOMATED 270 10^3/uL (150-450); RED BLOOD COUNT 4.37 10^6/uL (4.00-5.40); RED CELL DISTRIBUTION WIDTH 13.2 % (11.5-14.5); WHITE BLOOD COUNT 21.4 10^3/uL (4.0-10.0)
[2017-08-05] MEDS: CIPROFLOXACIN 400 MG in APPROPRIATE DILUENT 1 EA IV (01:54)
[2017-08-05] MEDS: metroNIDAZOLE 500 MG in APPROPRIATE DILUENT 1 EA IV (05:44)
[2017-08-05] MEDS: MORPHINE 30 MG SA TAB PO ×3 (05:45→21:12)
[2017-08-05 07:05] LABS: HEMATOCRIT 37.4 % (36.0-47.0); HEMOGLOBIN 12.9 g/dl (12.0-16.0); MEAN CORPUSCULAR HEMOGLOBIN 31.9 pg (27.0-33.0); MEAN CORPUSCULAR HGB CONC 34.5 g/dl (32.0-36.5); MEAN CORPUSCULAR VOLUME 92.3 fl (80.0-96.0); PLATELET COUNT, AUTOMATED 258 10^3/uL (150-450); RED BLOOD COUNT 4.05 10^6/uL (4.00-5.40); RED CELL DISTRIBUTION WIDTH 13.1 % (11.5-14.5)
[2017-08-05 07:14] LABS: ADD MANUAL DIFFER YES; DIFF SLIDE NUMBER 77; POSITIVE DIFF POS FLAG; WHITE BLOOD COUNT 18.6 10^3/uL (4.0-10.0)
[2017-08-05 07:26] LABS: ALBUMIN 2.4 GM/DL (3.2-5.2); ALBUMIN/GLOBULIN RATIO 0.89 (1.00-1.93); ALKALINE PHOSPHATASE 61 U/L (45-117); ALT/SGPT 14 U/L (12-78); ANION GAP 7 MEQ/L (8-16); AST/SGOT 8 U/L (7-37); BILIRUBIN,TOTAL 0.5 MG/DL (0.2-1.0); BLOOD UREA NITROGEN 6 MG/DL (7-18); CALCIUM LEVEL 8.3 MG/DL (8.8-10.2); CARBON DIOXIDE LEVEL 32 MEQ/L (21-32); CHLORIDE LEVEL 105 MEQ/L (98-107); CREATININE FOR GFR 0.66 MG/DL (0.55-1.02); GLOMERULAR FILTRATION RATE > 60.0 (>45); GLUCOSE, FASTING 112 MG/DL (80-110); MAGNESIUM LEVEL 1.6 MG/DL (1.8-2.4); SODIUM LEVEL 144 MEQ/L (136-145); TOTAL PROTEIN 5.1 GM/DL (6.4-8.2)
[2017-08-05 07:51] LABS: ATYPICAL LYMPH 8 % (0-5); BASOPHILS 1 % (0-4); EOSINOPHILS 1 % (0-5); LYMPHOCYTES 26 % (16-52); MONOCYTES 8 % (0-8); NEUTROPHILS 56 % (35-75)
[2017-08-05 07:53] LABS: POIKILOCYTOSIS 1+
[2017-08-05 07:54] LABS: ANISOCYTOSIS 1+; BURR CELLS 1+; PLATELET ESTIMATE NORMAL (NORMAL)
[2017-08-05] MEDS: METHOCARBAMOL 750 MG TAB PO ×3 (08:50→21:10)
[2017-08-05] MEDS: NS 1,000 ML IV (08:50)
[2017-08-05] MEDS: LORATADINE 10 MG TAB PO (08:50)
[2017-08-05] MEDS ORDERED: PRAVASTATIN 20 MG TAB PO (09:00)
[2017-08-05] MEDS ORDERED: MORPHINE 15 MG SA TAB PO (10:40)
[2017-08-05] MEDS ORDERED: MORPHINE 30 MG TAB **MSIR PO (10:43)
[2017-08-05 12:01] LABS: HEMATOCRIT 36.8 % (36.0-47.0); HEMOGLOBIN 12.6 g/dl (12.0-16.0); MEAN CORPUSCULAR HEMOGLOBIN 31.8 pg (27.0-33.0); MEAN CORPUSCULAR HGB CONC 34.2 g/dl (32.0-36.5); MEAN CORPUSCULAR VOLUME 92.9 fl (80.0-96.0); PLATELET COUNT, AUTOMATED 245 10^3/uL (150-450); RED BLOOD COUNT 3.96 10^6/uL (4.00-5.40); RED CELL DISTRIBUTION WIDTH 13.2 % (11.5-14.5)
[2017-08-05 12:16] LABS: ADD MANUAL DIFFER YES; DIFF SLIDE NUMBER 78; POSITIVE DIFF POS FLAG; POSITIVE MORPH POS FLAG; WHITE BLOOD COUNT 23.5 10^3/uL (4.0-10.0)
[2017-08-05] MEDS: MAG SULF 1GM/100ML (MAG RUN) 1 GM in APPROPRIATE DILUENT 1 EA IV (12:18)
[2017-08-05] MEDS: VANCOMYCIN ORAL SOL 250MG/5ML ORAL SYRINGE PO ×2 (12:19→17:55)
[2017-08-05 12:57] LABS: ATYPICAL LYMPH 10 % (0-5); BASOPHILS 1 % (0-4); EOSINOPHILS 2 % (0-5); LYMPHOCYTES 25 % (16-52); MONOCYTES 10 % (0-8); NEUTROPHILS 52 % (35-75)
[2017-08-05 13:11] LABS: ANISOCYTOSIS 1+; BURR CELLS 1+; PLATELET ESTIMATE NORMAL (NORMAL); POIKILOCYTOSIS 1+
[2017-08-05] MEDS: LABETALOL HCL 100 MG/20 ML VIAL IV (16:11)
[2017-08-05] MEDS: cloNIDine 0.2 MG TAB PO (16:11)
[2017-08-05] MEDS ORDERED: SLF 3 ML SYR IV ×3 (17:15→22:00)
[2017-08-05] MEDS: cloNIDine 0.1 MG TAB PO (17:51)
[2017-08-05 18:17] LABS: HEMATOCRIT 35.3 % (36.0-47.0); HEMOGLOBIN 11.8 g/dl (12.0-16.0); MEAN CORPUSCULAR HEMOGLOBIN 31.6 pg (27.0-33.0); MEAN CORPUSCULAR HGB CONC 33.4 g/dl (32.0-36.5); MEAN CORPUSCULAR VOLUME 94.4 fl (80.0-96.0); PLATELET COUNT, AUTOMATED 246 10^3/uL (150-450); RED BLOOD COUNT 3.74 10^6/uL (4.00-5.40); RED CELL DISTRIBUTION WIDTH 13.1 % (11.5-14.5)
[2017-08-05 18:19] LABS: ADD MANUAL DIFFER YES; DIFF SLIDE NUMBER 79; POSITIVE DIFF POS FLAG; POSITIVE MORPH POS FLAG; WHITE BLOOD COUNT 23.3 10^3/uL (4.0-10.0)
[2017-08-05 18:26] LABS: INR 1.01; PROTHROMBIN TIME 13.4 SECONDS (12.4-14.5)
[2017-08-05 18:43] LABS: ATYPICAL LYMPH 14 % (0-5); EOSINOPHILS 1 % (0-5); LYMPHOCYTES 33 % (16-52); NEUTROPHILS 52 % (35-75)
[2017-08-05 18:44] LABS: ACANTHOCYTES 1+; BURR CELLS 1+; PLATELET ESTIMATE NORMAL (NORMAL); SCHISTOCYTES 1+
[2017-08-05 18:45] LABS: HOWELL-JOLLY BODIES 1+
[2017-08-05] MEDS: METOPROLOL TART 50 MG TAB PO (21:00)
[2017-08-05] MEDS: amLODIPine 5 MG TAB PO (21:00)
[2017-08-05] MEDS: ATORVASTATIN 20 MG TAB PO (21:10)
[2017-08-05] MEDS: predniSONE 20 MG TAB PO (21:11)
[2017-08-05] MEDS: SLF 3 ML SYR IV (21:12)
[2017-08-06 00:09] LABS: EBV VIRAL CAPSID AG IgM <36.0 U/mL (0.0-35.9)
[2017-08-06] MEDS: VANCOMYCIN ORAL SOL 250MG/5ML ORAL SYRINGE PO ×5 (00:18→23:58)
[2017-08-06 00:42] LABS: BASO # 0.1 10^3/uL (0.0-0.2); BASO % 0.4 % (0.0-1.0); EOS # 0.5 10^3/uL (0.0-0.50); EOS % 2.6 % (0.0-3.0); HEMATOCRIT 36.6 % (36.0-47.0); HEMOGLOBIN 12.3 g/dl (12.0-16.0); IMMATURE GRANULOCYTE # 0.1 10^3/uL (0-0); IMMATURE GRANULOCYTE % 0.5 % (0-0); LYMPH % 23.2 % (24.0-44.0); MEAN CORPUSCULAR HEMOGLOBIN 31.8 pg (27.0-33.0); MEAN CORPUSCULAR HGB CONC 33.6 g/dl (32.0-36.5); MEAN CORPUSCULAR VOLUME 94.6 fl (80.0-96.0); MONO % 5.9 % (0.0-5.0); NEUTROPHILS # 11.6 10^3/uL (1.8-7.7); NEUTROPHILS % 67.4 % (36.0-66.0); PLATELET COUNT, AUTOMATED 254 10^3/uL (150-450); RED BLOOD COUNT 3.87 10^6/uL (4.00-5.40); RED CELL DISTRIBUTION WIDTH 13.2 % (11.5-14.5); WHITE BLOOD COUNT 17.2 10^3/uL (4.0-10.0)
[2017-08-06 04:56] LABS: HEMATOCRIT 36.6 % (36.0-47.0); HEMOGLOBIN 12.3 g/dl (12.0-16.0); MEAN CORPUSCULAR HEMOGLOBIN 31.2 pg (27.0-33.0); MEAN CORPUSCULAR HGB CONC 33.6 g/dl (32.0-36.5); MEAN CORPUSCULAR VOLUME 92.9 fl (80.0-96.0); PLATELET COUNT, AUTOMATED 252 10^3/uL (150-450); RED BLOOD COUNT 3.94 10^6/uL (4.00-5.40); RED CELL DISTRIBUTION WIDTH 13.2 % (11.5-14.5); WHITE BLOOD COUNT 13.2 10^3/uL (4.0-10.0)
[2017-08-06] MEDS: SLF 3 ML SYR IV ×3 (05:10→21:39)
[2017-08-06] MEDS: MORPHINE 30 MG SA TAB PO ×3 (05:10→21:38)
[2017-08-06] MEDS: cloNIDine 0.1 MG TAB PO ×5 (05:11→23:57)
[2017-08-06 05:12] LABS: ALBUMIN 2.4 GM/DL (3.2-5.2); ALKALINE PHOSPHATASE 59 U/L (45-117); ALT/SGPT 13 U/L (12-78); ANION GAP 4 MEQ/L (8-16); AST/SGOT 11 U/L (7-37); BILIRUBIN,TOTAL 0.3 MG/DL (0.2-1.0); BLOOD UREA NITROGEN 7 MG/DL (7-18); CALCIUM LEVEL 8.1 MG/DL (8.8-10.2); CARBON DIOXIDE LEVEL 29 MEQ/L (21-32); CHLORIDE LEVEL 110 MEQ/L (98-107); CREATININE FOR GFR 0.65 MG/DL (0.55-1.02); GLOMERULAR FILTRATION RATE > 60.0 (>45); GLUCOSE, FASTING 200 MG/DL (80-110); MAGNESIUM LEVEL 1.7 MG/DL (1.8-2.4); POTASSIUM SERUM 3.6 MEQ/L (3.5-5.1); SODIUM LEVEL 143 MEQ/L (136-145); TOTAL PROTEIN 5.4 GM/DL (6.4-8.2)
[2017-08-06] MEDS: POTASSIUM CHLORIDE 10 MEQ SR TABLET PO (06:25)
[2017-08-06] MEDS: MAG SULF 1GM/100ML (MAG RUN) 1 GM in APPROPRIATE DILUENT 1 EA IV (06:25)
[2017-08-06] MEDS: amLODIPine 5 MG TAB PO ×2 (09:00→21:39)
[2017-08-06] MEDS: METOPROLOL TART 50 MG TAB PO ×2 (09:00→21:39)
[2017-08-06] MEDS: METHOCARBAMOL 750 MG TAB PO ×3 (09:23→21:39)
[2017-08-06] MEDS: LORATADINE 10 MG TAB PO (09:26)
[2017-08-06] MEDS: MORPHINE 30 MG TAB **MSIR PO ×2 (09:26→19:50)
[2017-08-06 15:18] LABS: INR 1.01; PROTHROMBIN TIME 13.4 SECONDS (12.4-14.5)
[2017-08-06] MEDS: predniSONE 20 MG TAB PO (21:39)
[2017-08-06] MEDS: ATORVASTATIN 20 MG TAB PO (21:39)
[2017-08-07] MEDS: VANCOMYCIN ORAL SOL 250MG/5ML ORAL SYRINGE PO ×3 (05:19→18:00)
[2017-08-07] MEDS: cloNIDine 0.1 MG TAB PO ×3 (05:19→18:01)
[2017-08-07] MEDS: MORPHINE 30 MG SA TAB PO ×3 (05:20→21:39)
[2017-08-07] MEDS: SLF 3 ML SYR IV ×3 (05:20→21:41)
[2017-08-07 05:34] LABS: HEMOGLOBIN 12.1 g/dl (12.0-16.0); MEAN CORPUSCULAR HEMOGLOBIN 31.3 pg (27.0-33.0); MEAN CORPUSCULAR HGB CONC 33.6 g/dl (32.0-36.5); PLATELET COUNT, AUTOMATED 267 10^3/uL (150-450); RED BLOOD COUNT 3.87 10^6/uL (4.00-5.40); RED CELL DISTRIBUTION WIDTH 13.3 % (11.5-14.5); WHITE BLOOD COUNT 14.6 10^3/uL (4.0-10.0)
[2017-08-07 05:55] LABS: ALBUMIN 2.5 GM/DL (3.2-5.2); ALBUMIN/GLOBULIN RATIO 0.81 (1.00-1.93); ALKALINE PHOSPHATASE 58 U/L (45-117); ALT/SGPT 14 U/L (12-78); ANION GAP 5 MEQ/L (8-16); AST/SGOT 9 U/L (7-37); BILIRUBIN,TOTAL 0.2 MG/DL (0.2-1.0); BLOOD UREA NITROGEN 11 MG/DL (7-18); CARBON DIOXIDE LEVEL 28 MEQ/L (21-32); CHLORIDE LEVEL 109 MEQ/L (98-107); CREATININE FOR GFR 0.69 MG/DL (0.55-1.02); GLOMERULAR FILTRATION RATE > 60.0 (>45); GLUCOSE, FASTING 214 MG/DL (80-110); MAGNESIUM LEVEL 1.7 MG/DL (1.8-2.4); POTASSIUM SERUM 4.4 MEQ/L (3.5-5.1); SODIUM LEVEL 142 MEQ/L (136-145); TOTAL PROTEIN 5.6 GM/DL (6.4-8.2)
[2017-08-07] MEDS: MAG SULF 1GM/100ML (MAG RUN) 1 GM in APPROPRIATE DILUENT 1 EA IV (06:31)
[2017-08-07] MEDS: NITROFURANTOIN (MACROBID) 100 MG CAP PO ×2 (06:31→21:40)
[2017-08-07] MEDS ORDERED: zolPIDEM TARTRATE 10MG TAB PO (08:30)
[2017-08-07] MEDS: LORATADINE 10 MG TAB PO (08:31)
[2017-08-07] MEDS: METHOCARBAMOL 750 MG TAB PO ×3 (08:31→21:40)
[2017-08-07] MEDS: METOPROLOL TART 50 MG TAB PO ×2 (08:34→21:39)
[2017-08-07] MEDS: amLODIPine 5 MG TAB PO ×2 (08:34→21:40)
[2017-08-07] MEDS: PHENAZOPYRIDINE 100 MG TAB PO ×3 (10:16→21:38)
[2017-08-07] MEDS: MORPHINE 30 MG TAB **MSIR PO (18:01)
[2017-08-07] MEDS: ATORVASTATIN 20 MG TAB PO (21:38)
[2017-08-07] MEDS: predniSONE 20 MG TAB PO (21:39)
[2017-08-08] MEDS: cloNIDine 0.1 MG TAB PO ×4 (05:14→17:13)
[2017-08-08] MEDS: VANCOMYCIN ORAL SOL 250MG/5ML ORAL SYRINGE PO ×4 (05:43→17:13)
[2017-08-08] MEDS: MORPHINE 30 MG SA TAB PO ×3 (05:43→21:31)
[2017-08-08] MEDS: SLF 3 ML SYR IV ×5 (05:47→22:00)
[2017-08-08 07:26] LABS: HEMATOCRIT 38.4 % (36.0-47.0); MEAN CORPUSCULAR HEMOGLOBIN 31.8 pg (27.0-33.0); MEAN CORPUSCULAR HGB CONC 33.9 g/dl (32.0-36.5); MEAN CORPUSCULAR VOLUME 93.9 fl (80.0-96.0); PLATELET COUNT, AUTOMATED 266 10^3/uL (150-450); RED BLOOD COUNT 4.09 10^6/uL (4.00-5.40); RED CELL DISTRIBUTION WIDTH 13.2 % (11.5-14.5)
[2017-08-08 07:55] LABS: ALBUMIN 2.9 GM/DL (3.2-5.2); ALBUMIN/GLOBULIN RATIO 1.04 (1.00-1.93); ALKALINE PHOSPHATASE 62 U/L (45-117); ALT/SGPT 24 U/L (12-78); ANION GAP 4 MEQ/L (8-16); AST/SGOT 13 U/L (7-37); BILIRUBIN,TOTAL 0.2 MG/DL (0.2-1.0); BLOOD UREA NITROGEN 12 MG/DL (7-18); CALCIUM LEVEL 8.3 MG/DL (8.8-10.2); CARBON DIOXIDE LEVEL 30 MEQ/L (21-32); CHLORIDE LEVEL 108 MEQ/L (98-107); CREATININE FOR GFR 0.76 MG/DL (0.55-1.02); GLOMERULAR FILTRATION RATE > 60.0 (>45); GLUCOSE, FASTING 227 MG/DL (80-110); MAGNESIUM LEVEL 1.9 MG/DL (1.8-2.4); POTASSIUM SERUM 4.6 MEQ/L (3.5-5.1); SODIUM LEVEL 142 MEQ/L (136-145); TOTAL PROTEIN 5.7 GM/DL (6.4-8.2)
[2017-08-08] MEDS: NITROFURANTOIN (MACROBID) 100 MG CAP PO ×2 (09:37→21:32)
[2017-08-08] MEDS: PHENAZOPYRIDINE 100 MG TAB PO ×3 (09:37→21:31)
[2017-08-08] MEDS: MORPHINE 30 MG TAB **MSIR PO (09:39)
[2017-08-08] MEDS: METHOCARBAMOL 750 MG TAB PO ×3 (09:39→21:32)
[2017-08-08] MEDS: METOPROLOL TART 50 MG TAB PO ×2 (09:39→21:32)
[2017-08-08] MEDS: LORATADINE 10 MG TAB PO (09:40)
[2017-08-08] MEDS: amLODIPine 5 MG TAB PO ×2 (09:40→21:33)
[2017-08-08] MEDS: ATORVASTATIN 20 MG TAB PO (21:33)
[2017-08-08] MEDS: predniSONE 20 MG TAB PO (21:33)
[2017-08-09] MEDS: SLF 3 ML SYR IV (00:24)
[2017-08-09] MEDS: VANCOMYCIN ORAL SOL 250MG/5ML ORAL SYRINGE PO ×3 (00:58→12:30)
[2017-08-09] MEDS: cloNIDine 0.1 MG TAB PO ×3 (00:58→10:48)
[2017-08-09] MEDS: MORPHINE 30 MG SA TAB PO (06:29)
[2017-08-09 07:02] LABS: HEMATOCRIT 40.5 % (36.0-47.0); HEMOGLOBIN 13.9 g/dl (12.0-16.0); MEAN CORPUSCULAR HEMOGLOBIN 31.7 pg (27.0-33.0); MEAN CORPUSCULAR HGB CONC 34.3 g/dl (32.0-36.5); MEAN CORPUSCULAR VOLUME 92.3 fl (80.0-96.0); PLATELET COUNT, AUTOMATED 273 10^3/uL (150-450); RED BLOOD COUNT 4.39 10^6/uL (4.00-5.40); RED CELL DISTRIBUTION WIDTH 13.1 % (11.5-14.5)
[2017-08-09 07:09] LABS: CHLORIDE LEVEL 105 MEQ/L (98-107); SODIUM LEVEL 141 MEQ/L (136-145)
[2017-08-09 07:18] LABS: ALBUMIN 2.8 GM/DL (3.2-5.2); ALBUMIN/GLOBULIN RATIO 0.85 (1.00-1.93); ALKALINE PHOSPHATASE 69 U/L (45-117); ALT/SGPT 24 U/L (12-78); ANION GAP 6 MEQ/L (8-16); AST/SGOT 15 U/L (7-37); BILIRUBIN,TOTAL 0.3 MG/DL (0.2-1.0); BLOOD UREA NITROGEN 13 MG/DL (7-18); CALCIUM LEVEL 8.7 MG/DL (8.8-10.2); CARBON DIOXIDE LEVEL 30 MEQ/L (21-32); CREATININE FOR GFR 0.77 MG/DL (0.55-1.02); GLOMERULAR FILTRATION RATE > 60.0 (>45); GLUCOSE, FASTING 206 MG/DL (80-110); MAGNESIUM LEVEL 1.8 MG/DL (1.8-2.4); TOTAL PROTEIN 6.1 GM/DL (6.4-8.2)
[2017-08-09] MEDS: PHENAZOPYRIDINE 100 MG TAB PO (10:48)
[2017-08-09] MEDS: NITROFURANTOIN (MACROBID) 100 MG CAP PO (10:49)
[2017-08-09] MEDS: MORPHINE 30 MG TAB **MSIR PO (10:49)
[2017-08-09] MEDS: METHOCARBAMOL 750 MG TAB PO (10:49)
[2017-08-09] MEDS: METOPROLOL TART 50 MG TAB PO (10:50)
[2017-08-09] MEDS: LORATADINE 10 MG TAB PO (10:50)
[2017-08-09] MEDS: amLODIPine 5 MG TAB PO (10:50)
== END 2017-08-09 13:00 | disposition home or self-care (01) | DRG 372 ==
LOC: M PCU 08-05 16:30 → M PED 08-07 11:41 → M ED 09:17 → M ED INP 15:00
DX: A04.72 Enterocolitis due to Clostridium difficile, not specified as recurrent (principal); N39.0 Urinary tract infection, site not specified; D62 Acute posthemorrhagic anemia; K92.1 Melena; M35.3 Polymyalgia rheumatica; M85.80 Other specified disorders of bone density and structure, unspecified site; F41.9 Anxiety disorder, unspecified; E78.5 Hyperlipidemia, unspecified; I10 Essential (primary) hypertension; G47.00 Insomnia, unspecified; B96.20 Unspecified Escherichia coli [E. coli] as the cause of diseases classified elsewhere; E83.42 Hypomagnesemia; Z87.891 Personal history of nicotine dependence; N83.201 Unspecified ovarian cyst, right side; Z79.82 Long term (current) use of aspirin; Z79.52 Long term (current) use of systemic steroids; Z79.899 Other long term (current) drug therapy; Z79.891 Long term (current) use of opiate analgesic; Z88.8 Allergy status to other drugs, medicaments and biological substances

== ENCOUNTER → 2017-08-18 | Outpatient (CLI) | payer MEDICARE ==
[2017-08-18 20:03] LABS: ERYTHROCYTE SEDIMENTATION RATE 8 mm/hr (0-30)
== END ==
LOC: M LAB 15:50
DX: M35.3 Polymyalgia rheumatica (principal)
CPT/HCPCS: 36415

== ENCOUNTER → 2017-08-18 | Outpatient (CLI) | payer MEDICARE | LOC: M PAIN 14:15 | DX: G89.4 Chronic pain syndrome (principal); G43.009 Migraine without aura, not intractable, without status migrainosus; I10 Essential (primary) hypertension; M79.1 Myalgia; I25.2 Old myocardial infarction; I25.10 Atherosclerotic heart disease of native coronary artery without angina pectoris; F32.9 Major depressive disorder, single episode, unspecified; D58.0 Hereditary spherocytosis; F17.210 Nicotine dependence, cigarettes, uncomplicated; Z79.82 Long term (current) use of aspirin; Z79.891 Long term (current) use of opiate analgesic; Z79.899 Other long term (current) drug therapy; Z90.81 Acquired absence of spleen; Z88.8 Allergy status to other drugs, medicaments and biological substances | CPT/HCPCS: 36415; G0463 ==

== ENCOUNTER → 2017-08-31 | Outpatient (REF) | payer MEDICARE ==
[2017-08-31 14:03] LABS: APPEARANCE, URINE MANUAL HAZY (CLEAR); COLOR, URINE MANUAL ORANGE (YELLOW); PH,URINE MAN OBSCURED UNITS (5.0 - 7.0); SPECIFIC GRAVITY,URINE MANUAL 1.036 (1.002-1.035)
[2017-08-31 14:04] LABS: BILIRUBIN, URINE MANUAL OBSCURED (NEGATIVE); BLOOD URINE MANUAL OBSCURED (NEGATIVE); GLUCOSE, URINE (UA) MANUAL OBSCURED mg/dL (NEGATIVE); KETONE, URINE MANUAL OBSCURED mg/dL (NEGATIVE); LEUKOCYTE ESTERASE, URINE MAN OBSCURED (NEGATIVE); MICROSCOPIC INDICATED? MAN YES (NO); NITRITE, URINE MANUAL OBSCURED (NEGATIVE); PROTEIN, URINE MANUAL OBSCURED mg/dL (NEGATIVE); UROBILINOGEN, URINE MANUAL OBSCURED mg/dl (NORMAL)
[2017-08-31 14:07] LABS: BACTERIA, URINE LARGE AMOUNT; HYALINE CAST, URINE NONE SEEN /lpf (0-1); MICROSCOPIC EXAM PERFORMED; RBC, URINE 0-1 /hpf (0-3); SQUAMOUS EPITHELIAL CELL URINE SMALL AMOUNT /hpf (SMALL AMT)
== END ==
LOC: M SFHCPLAZ 13:24
DX: R30.0 Dysuria (principal)
CPT/HCPCS: 81000

== ENCOUNTER → 2017-09-27 | Outpatient (REF) | payer MEDICARE ==
[2017-09-27 15:56] LABS: HEMATOCRIT 42.7 % (36.0-47.0); HEMOGLOBIN 14.2 g/dl (12.0-16.0); MEAN CORPUSCULAR HEMOGLOBIN 30.5 pg (27.0-33.0); MEAN CORPUSCULAR HGB CONC 33.3 g/dl (32.0-36.5); MEAN CORPUSCULAR VOLUME 91.8 fl (80.0-96.0); PLATELET COUNT, AUTOMATED 328 10^3/uL (150-450); RED BLOOD COUNT 4.65 10^6/uL (4.00-5.40); RED CELL DISTRIBUTION WIDTH 13.3 % (11.5-14.5)
[2017-09-27 16:07] LABS: ADD MANUAL DIFFER YES; DIFF SLIDE NUMBER 285; POSITIVE DIFF POS FLAG
[2017-09-27 16:24] LABS: ALBUMIN 3.6 GM/DL (3.2-5.2); ALBUMIN/GLOBULIN RATIO 1.24 (1.00-1.93); ALKALINE PHOSPHATASE 79 U/L (45-117); ALT/SGPT 24 U/L (12-78); ANION GAP 7 MEQ/L (8-16); AST/SGOT 11 U/L (7-37); BILIRUBIN,DIRECT 0.1 MG/DL (0.0-0.2); BILIRUBIN,TOTAL 0.5 MG/DL (0.2-1.0); BLOOD UREA NITROGEN 20 MG/DL (7-18); CALCIUM LEVEL 9.4 MG/DL (8.8-10.2); CARBON DIOXIDE LEVEL 31 MEQ/L (21-32); CHLORIDE LEVEL 102 MEQ/L (98-107); CREATININE FOR GFR 0.99 MG/DL (0.55-1.30); GLOMERULAR FILTRATION RATE > 60.0 (>45); GLUCOSE, FASTING 130 MG/DL (70-100); LIPASE 299 U/L (73-393); POTASSIUM SERUM 4.2 MEQ/L (3.5-5.1); SODIUM LEVEL 140 MEQ/L (136-145); TOTAL PROTEIN 6.5 GM/DL (6.4-8.2)
[2017-09-27 16:26] LABS: BANDS 1 % (< 11); LYMPHOCYTES 23 % (16-52); MONOCYTES 14 % (0-8); NEUTROPHILS 62 % (35-75)
[2017-09-27 16:28] LABS: PLATELET ESTIMATE NORMAL (NORMAL)
[2017-09-27 16:45] LABS: ERYTHROCYTE SEDIMENTATION RATE 14 mm/hr (0-30)
[2017-09-30 00:06] LABS: H PYLORI STOOL ANTIGEN Negative (Negative)
== END ==
LOC: M SFHCPLAZ 14:45
DX: M35.3 Polymyalgia rheumatica (principal); R10.9 Unspecified abdominal pain; R19.7 Diarrhea, unspecified
CPT/HCPCS: 83690

== ENCOUNTER → 2017-10-26 | Outpatient (CLI) | payer MEDICARE | LOC: M PAIN 13:30 | DX: G89.4 Chronic pain syndrome (principal); G43.009 Migraine without aura, not intractable, without status migrainosus; M79.1 Myalgia; E11.9 Type 2 diabetes mellitus without complications; E03.9 Hypothyroidism, unspecified; I25.2 Old myocardial infarction; G47.33 Obstructive sleep apnea (adult) (pediatric); F41.9 Anxiety disorder, unspecified; I10 Essential (primary) hypertension; M35.3 Polymyalgia rheumatica; F17.210 Nicotine dependence, cigarettes, uncomplicated; Z79.82 Long term (current) use of aspirin; Z79.52 Long term (current) use of systemic steroids; Z79.891 Long term (current) use of opiate analgesic; Z79.899 Other long term (current) drug therapy; Z88.8 Allergy status to other drugs, medicaments and biological substances; Z90.81 Acquired absence of spleen | CPT/HCPCS: G0463 ==

== ENCOUNTER → 2017-11-08 | Outpatient (CLI) | payer MEDICARE ==
[~2017-11-08] MED LIST changes: -AMIT25TA PO; -BENA25CA2 PO; +BUPIVACAINE HCL 0.25% 10 ML VIAL As Ordered; +BUPIVACAINE HCL 0.25% 30 ML VIAL As Ordered; -CALC1TAB16 PO; -CHAN1PAK9 PO; -CLAR10CA3 PO; -CYMB60CA3 PO; -DOCU10CA PO; -EFFI10TA4 PO; -EQ A1TAB12 PO; -FLON0.054; -FOLI1TAB4 PO; -HYDR50TA70 PO; -IRBE150T14 PO; -MECL-68 PO; -MELO15TA4 PO; -MORP-38 PO; -NIAC500T5 PO; -NITR4TASL SL; -OXYC15TA76 PO; -OXYC1TAB16 PO; -OXYC20TA40 PO; -PERC10TA26 PO; -PRAV40TA2 PO; -PRED10TA PO; -PREG50CA PO; -REQU2TAB3 PO; -ROBA750T4 PO; -SKEL800T97 PO; -SOMA350T PO; -TOPR50TA PO; -TRIA0.2571 PO; +TRIAMCINOLONE ACETONIDE SUSP 40 MG/ML VIAL (J3301) As Ordered; -VITA20008 PO; -VOLT1GEL15 TD; -ZOFR20TA PO; +diazePAM 5 MG TAB As Ordered; +oxyCODONE 5MG TAB As Ordered
== END ==
LOC: M PAIN 13:45
DX: G89.29 Other chronic pain (principal); M79.1 Myalgia; M25.511 Pain in right shoulder; M54.5 Low back pain; M81.8 Other osteoporosis without current pathological fracture; E03.9 Hypothyroidism, unspecified; I25.2 Old myocardial infarction; M35.3 Polymyalgia rheumatica; G47.33 Obstructive sleep apnea (adult) (pediatric); F41.9 Anxiety disorder, unspecified; I10 Essential (primary) hypertension; E78.5 Hyperlipidemia, unspecified; Z79.01 Long term (current) use of anticoagulants; Z79.52 Long term (current) use of systemic steroids; Z79.82 Long term (current) use of aspirin; Z79.891 Long term (current) use of opiate analgesic; Z79.899 Other long term (current) drug therapy; Z88.8 Allergy status to other drugs, medicaments and biological substances
CPT/HCPCS: J3301

== ENCOUNTER → 2017-12-09 | Outpatient (CLI) | payer MEDICARE | LOC: M PAIN 14:30 | DX: G89.4 Chronic pain syndrome (principal); G43.009 Migraine without aura, not intractable, without status migrainosus; Z79.891 Long term (current) use of opiate analgesic; M79.1 Myalgia; M25.50 Pain in unspecified joint; M81.0 Age-related osteoporosis without current pathological fracture; E05.00 Thyrotoxicosis with diffuse goiter without thyrotoxic crisis or storm; I25.2 Old myocardial infarction; M06.9 Rheumatoid arthritis, unspecified; G47.33 Obstructive sleep apnea (adult) (pediatric); E78.5 Hyperlipidemia, unspecified; J30.9 Allergic rhinitis, unspecified; F41.9 Anxiety disorder, unspecified; I10 Essential (primary) hypertension; M35.3 Polymyalgia rheumatica; F17.210 Nicotine dependence, cigarettes, uncomplicated; Z79.82 Long term (current) use of aspirin; Z79.52 Long term (current) use of systemic steroids; Z79.899 Other long term (current) drug therapy; Z88.8 Allergy status to other drugs, medicaments and biological substances | CPT/HCPCS: G0463 ==

== ENCOUNTER → 2018-01-31 | Outpatient (CLI) | payer MEDICARE | LOC: M PAIN 13:30 | DX: M35.3 Polymyalgia rheumatica (principal); M79.1 Myalgia; M25.60 Stiffness of unspecified joint, not elsewhere classified; M06.9 Rheumatoid arthritis, unspecified; M81.0 Age-related osteoporosis without current pathological fracture; E03.9 Hypothyroidism, unspecified; I25.2 Old myocardial infarction; G47.33 Obstructive sleep apnea (adult) (pediatric); F41.9 Anxiety disorder, unspecified; I10 Essential (primary) hypertension; F17.210 Nicotine dependence, cigarettes, uncomplicated; Z79.82 Long term (current) use of aspirin; Z79.52 Long term (current) use of systemic steroids; Z79.01 Long term (current) use of anticoagulants; Z79.891 Long term (current) use of opiate analgesic; Z79.899 Other long term (current) drug therapy; Z88.8 Allergy status to other drugs, medicaments and biological substances | CPT/HCPCS: G0463 ==

== ENCOUNTER → 2018-02-08 | Outpatient (REF) | payer MEDICARE ==
[2018-02-08 16:05] LABS: ANION GAP 8 MEQ/L (8-16); BLOOD UREA NITROGEN 20 MG/DL (7-18); CALCIUM LEVEL 8.7 MG/DL (8.8-10.2); CARBON DIOXIDE LEVEL 34 MEQ/L (21-32); CHLORIDE LEVEL 101 MEQ/L (98-107); CREATININE FOR GFR 0.83 MG/DL (0.55-1.30); GLOMERULAR FILTRATION RATE > 60.0 (>45); GLUCOSE, FASTING 63 MG/DL (70-100); POTASSIUM SERUM 4.4 MEQ/L (3.5-5.1); SODIUM LEVEL 143 MEQ/L (136-145)
[2018-02-08 16:51] LABS: ERYTHROCYTE SEDIMENTATION RATE 11 mm/hr (0-30)
[2018-02-10 10:43] LABS: CA 125 10.6 U/ML (<30.2)
== END ==
LOC: M SFHCPLAZ 11:10
DX: M35.3 Polymyalgia rheumatica (principal); N83.201 Unspecified ovarian cyst, right side; R60.0 Localized edema
CPT/HCPCS: 86304

== ENCOUNTER → 2018-03-03 | Outpatient (CLI) | payer MEDICARE | LOC: M RAD 13:58 | DX: N83.201 Unspecified ovarian cyst, right side (principal) | CPT/HCPCS: 76856 ==

== ENCOUNTER → 2018-03-10 | Outpatient (REF) | payer MEDICARE | LOC: M SFHCPLAZ 11:53 | DX: E11.65 Type 2 diabetes mellitus with hyperglycemia (principal); Z53.8 Procedure and treatment not carried out for other reasons ==

== ENCOUNTER → 2018-03-14 | Outpatient (CLI) | payer MEDICARE | LOC: M PAIN 13:00 | DX: M35.3 Polymyalgia rheumatica (principal); M79.1 Myalgia; M25.60 Stiffness of unspecified joint, not elsewhere classified; M06.9 Rheumatoid arthritis, unspecified; M81.0 Age-related osteoporosis without current pathological fracture; G47.33 Obstructive sleep apnea (adult) (pediatric); E78.5 Hyperlipidemia, unspecified; J30.9 Allergic rhinitis, unspecified; F41.9 Anxiety disorder, unspecified; I10 Essential (primary) hypertension; E11.9 Type 2 diabetes mellitus without complications; F17.210 Nicotine dependence, cigarettes, uncomplicated; Z79.52 Long term (current) use of systemic steroids; Z79.82 Long term (current) use of aspirin; Z79.84 Long term (current) use of oral hypoglycemic drugs; Z79.899 Other long term (current) drug therapy; Z90.49 Acquired absence of other specified parts of digestive tract; Z88.8 Allergy status to other drugs, medicaments and biological substances | CPT/HCPCS: G0463 ==

== ENCOUNTER → 2018-04-12 | Outpatient (REF) | payer MEDICARE | LOC: M SFHCPLAZ 11:49 | DX: M35.3 Polymyalgia rheumatica (principal); E87.6 Hypokalemia; E11.65 Type 2 diabetes mellitus with hyperglycemia; Z53.8 Procedure and treatment not carried out for other reasons ==

== ENCOUNTER → 2018-04-17 | Outpatient (CLI) | payer MEDICARE ==
[2018-04-17 14:44] LABS: ESTIMATED AVERAGE GLUCOSE 120 MG/DL (60-110); HEMOGLOBIN A1c 5.8 %
[2018-04-17 14:52] LABS: POTASSIUM SERUM 3.6 MEQ/L (3.5-5.1)
[2018-04-17 15:02] LABS: ERYTHROCYTE SEDIMENTATION RATE 34 mm/hr (0-30)
[2018-04-17 15:24] LABS: MALB URINE SIEMENS 15.4 MG/L; MAU/CREAT RATIO 4.8 MCG/MG (0.0-30.0)
== END ==
LOC: M LAB 13:52
DX: M35.3 Polymyalgia rheumatica (principal); E87.6 Hypokalemia; E11.65 Type 2 diabetes mellitus with hyperglycemia
CPT/HCPCS: 84132

== ENCOUNTER → 2018-05-12 | Outpatient (CLI) | payer MEDICARE | LOC: M PAIN 13:00 | DX: M35.3 Polymyalgia rheumatica (principal); M79.7 Fibromyalgia; M25.60 Stiffness of unspecified joint, not elsewhere classified; M06.9 Rheumatoid arthritis, unspecified; M81.0 Age-related osteoporosis without current pathological fracture; E03.9 Hypothyroidism, unspecified; I25.2 Old myocardial infarction; G47.33 Obstructive sleep apnea (adult) (pediatric); F41.9 Anxiety disorder, unspecified; E11.9 Type 2 diabetes mellitus without complications; I10 Essential (primary) hypertension; F17.210 Nicotine dependence, cigarettes, uncomplicated; Z79.01 Long term (current) use of anticoagulants; Z79.52 Long term (current) use of systemic steroids; Z79.82 Long term (current) use of aspirin; Z79.891 Long term (current) use of opiate analgesic; Z79.899 Other long term (current) drug therapy; Z88.8 Allergy status to other drugs, medicaments and biological substances | CPT/HCPCS: G0463 ==

== ENCOUNTER → 2021-12-30 | Outpatient (CLI) | payer MEDICARE ==
[~2021-12-30] MED LIST changes: +AMIT25TA17 PO; +ASPI1TAB22 PO; +ASPI81TA26 PO; +ATOR40TA75 PO; +BENA25CA2 PO; -BUPIVACAINE HCL 0.25% 10 ML VIAL As Ordered; -BUPIVACAINE HCL 0.25% 30 ML VIAL As Ordered; +CALC1TAB16 PO; +CHAN1PAK13 PO; +CLAR10CA3 PO; +CYMB60CA4 PO; +DOCU10CA PO; +EFFI10TA7 PO; +FLON0.054; +FOLI1TAB11 PO; +HYDR50TA70 PO; +IRBE150T14 PO; +MACR100C43 PO; +MECL1TAB31 PO; +MELO15TA28 PO; +METO50TA7 PO; +MORP-69 PO; +MORP15TA2 PO; +MORP30TASA PO; +NIAC500T5 PO; +NITR4TASL SL; +OXYC-1 PO; +OXYC10TA3 PO; +OXYC20TA40 PO; +PERC10TA26 PO; +PRAV40TA2 PO; +PRED-351 PO; +PRED20TA PO; +PREG50CA PO; +PYRI1TAB5 PO; +REQU2TAB3 PO; +ROBA750T4 PO; +SKEL800T97 PO; +SOMA350T PO; +TOPR50TA PO; +TRIA0.2571 PO; -TRIAMCINOLONE ACETONIDE SUSP 40 MG/ML VIAL (J3301) As Ordered; +VANC250C3 PO; +VITA20008 PO; +VOLT1GEL15 TD; +ZOFR4TAB16 PO; -diazePAM 5 MG TAB As Ordered; -oxyCODONE 5MG TAB As Ordered
== END ==
LOC: M PAIN 13:30
PROVIDERS: ATTEND Nurse Practitioner Family
DX: M51.16 Intervertebral disc disorders with radiculopathy, lumbar region (principal); G89.29 Other chronic pain; E11.9 Type 2 diabetes mellitus without complications; M79.7 Fibromyalgia; I25.2 Old myocardial infarction; N06.9 Isolated proteinuria with unspecified morphologic lesion; G47.33 Obstructive sleep apnea (adult) (pediatric); F17.210 Nicotine dependence, cigarettes, uncomplicated; Z88.8 Allergy status to other drugs, medicaments and biological substances; Z79.899 Other long term (current) drug therapy

== ENCOUNTER → 2022-02-11 | Outpatient (CLI) | payer MEDICARE | LOC: M PLAIMG 06:45 | PROVIDERS: ATTEND Nurse Practitioner Family | DX: M51.16 Intervertebral disc disorders with radiculopathy, lumbar region (principal) ==

== ENCOUNTER → 2022-03-30 | Outpatient (CLI) | payer MEDICARE ==
[2022-03-30 15:46] LABS: BASO # 0.1 10^3/uL (0.0-0.2); BASO % 0.8 % (0.0-1.0); EOS # 0.6 10^3/uL (0.0-0.5); EOS % 4.5 % (0.0-3.0); HEMATOCRIT 39.4 % (36.0-47.0); HEMOGLOBIN 13.3 g/dl (12.0-15.5); LYMPH # 6.2 10^3/uL (1.5-5.0); LYMPH % 47.5 % (24.0-44.0); MEAN CORPUSCULAR HEMOGLOBIN 32.2 pg (27.0-33.0); MEAN CORPUSCULAR HGB CONC 33.8 g/dl (32.0-36.5); MEAN CORPUSCULAR VOLUME 95.4 fl (80.0-96.0); MONO # 1.1 10^3/uL (0.0-0.8); MONO % 8.1 % (2.0-8.0); NEUTROPHILS # 5.1 10^3/uL (1.5-8.5); NEUTROPHILS % 38.9 % (36.0-66.0); PLATELET COUNT, AUTOMATED 311 10^3/uL (150-450); RED BLOOD COUNT 4.13 10^6/uL (4.00-5.40)
[2022-03-30 16:40] LABS: ALBUMIN 3.6 GM/DL (3.2-5.2); BILIRUBIN,TOTAL 0.4 MG/DL (0.2-1.0); CALCIUM LEVEL 9.6 MG/DL (8.8-10.2); CHOLESTEROL RISK RATIO 3.15 (<5); CREATININE FOR GFR 1.01 MG/DL (0.55-1.30); FREE T4 1.08 NG/DL (0.76-1.46); MAGNESIUM LEVEL 1.7 MG/DL (1.8-2.4); THYROID STIMULATING HORMONE 2.35 uIU/ML (0.358-3.740); TOTAL PROTEIN 6.8 GM/DL (6.4-8.2)
[2022-03-30 16:59] LABS: HEMOGLOBIN A1c 5.5 %
== END ==
LOC: M PLALAB 14:26
PROVIDERS: ATTEND Physician Assistant
DX: D58.0 Hereditary spherocytosis (principal)

== ENCOUNTER → 2022-04-01 | Outpatient (CLI) | payer MEDICARE | LOC: M SOG 08:42 | PROVIDERS: ATTEND Orthopaedic Surgery | DX: M25.512 Pain in left shoulder (principal); M25.511 Pain in right shoulder ==

== ENCOUNTER → 2022-04-20 | Outpatient (CLI) | payer MEDICARE ==
[2022-04-20 16:08] LABS: BASO # 0.1 10^3/uL (0.0-0.2); BASO % 0.7 % (0.0-1.0); EOS # 0.5 10^3/uL (0.0-0.5); HEMATOCRIT 43.1 % (36.0-47.0); HEMOGLOBIN 14.5 g/dl (12.0-15.5); LYMPH % 40.2 % (24.0-44.0); MEAN CORPUSCULAR HEMOGLOBIN 32.1 pg (27.0-33.0); MEAN CORPUSCULAR HGB CONC 33.6 g/dl (32.0-36.5); MEAN CORPUSCULAR VOLUME 95.4 fl (80.0-96.0); MONO % 6.5 % (2.0-8.0); NEUTROPHILS # 7.4 10^3/uL (1.5-8.5); NEUTROPHILS % 49.2 % (36.0-66.0); PLATELET COUNT, AUTOMATED 305 10^3/uL (150-450); RED BLOOD COUNT 4.52 10^6/uL (4.00-5.40)
[2022-04-20 16:27] LABS: INR 0.85
== END ==
LOC: M PLALAB 13:26
PROVIDERS: ATTEND Physician Assistant
DX: R58 Hemorrhage, not elsewhere classified (principal)

== ENCOUNTER → 2022-06-29 | Outpatient (REF) | payer MEDICARE | LOC: M SFHCPLAZ 13:45 | PROVIDERS: ATTEND Physician Assistant | DX: E04.2 Nontoxic multinodular goiter (principal); R79.0 Abnormal level of blood mineral ==

== ENCOUNTER → 2022-06-29 | Outpatient (CLI) | payer MEDICARE ==
[2022-06-29 18:06] LABS: THYROID STIMULATING HORMONE 3.504 uIU/ML (0.55-4.78)
[2022-06-29 18:08] LABS: FREE T4 1.21 NG/DL (0.89-1.76)
[2022-06-29 18:10] LABS: MAGNESIUM LEVEL 1.6 MG/DL (1.8-2.4)
== END ==
LOC: M PLALAB 14:08
PROVIDERS: ATTEND Physician Assistant
DX: E04.2 Nontoxic multinodular goiter (principal)

== ENCOUNTER → 2022-09-16 | Outpatient (CLI) | payer MEDICARE, OTHER | LOC: M PAIN 13:45 | PROVIDERS: ATTEND Nurse Practitioner Family | DX: M46.1 Sacroiliitis, not elsewhere classified (principal); M79.10 Myalgia, unspecified site; G89.29 Other chronic pain; E11.9 Type 2 diabetes mellitus without complications; I25.2 Old myocardial infarction; M06.9 Rheumatoid arthritis, unspecified; G47.33 Obstructive sleep apnea (adult) (pediatric); I10 Essential (primary) hypertension; F17.210 Nicotine dependence, cigarettes, uncomplicated; Z86.59 Personal history of other mental and behavioral disorders; Z88.8 Allergy status to other drugs, medicaments and biological substances; Z79.891 Long term (current) use of opiate analgesic; Z79.899 Other long term (current) drug therapy ==

== ENCOUNTER → 2022-09-30 | Outpatient (CLI) | payer MEDICARE | LOC: M TMPAIN 16:15 → M PAIN 16:15 | PROVIDERS: ATTEND Nurse Practitioner Family | DX: M46.1 Sacroiliitis, not elsewhere classified (principal); M79.10 Myalgia, unspecified site; G89.29 Other chronic pain; E11.9 Type 2 diabetes mellitus without complications; I25.2 Old myocardial infarction; M06.9 Rheumatoid arthritis, unspecified; G47.33 Obstructive sleep apnea (adult) (pediatric); I10 Essential (primary) hypertension; F17.210 Nicotine dependence, cigarettes, uncomplicated; Z86.59 Personal history of other mental and behavioral disorders; Z88.8 Allergy status to other drugs, medicaments and biological substances; Z79.891 Long term (current) use of opiate analgesic; Z79.899 Other long term (current) drug therapy ==

== ENCOUNTER → 2022-10-28 | Outpatient (CLI) | payer MEDICARE | LOC: M RAD 08:24 | PROVIDERS: ATTEND Physician Assistant | DX: I10 Essential (primary) hypertension (principal); I71.40 Abdominal aortic aneurysm, without rupture, unspecified ==

== ENCOUNTER → 2023-06-21 | Outpatient (CLI) | payer MEDICARE, MEDICAID ==
[~2023-06-21] MED LIST changes: -AMIT25TA17 PO; +AMIT25TA19 PO; +MECL-209 PO; -MECL1TAB31 PO
== END ==
LOC: M RAD 10:29
PROVIDERS: ATTEND Internal Medicine
DX: I73.9 Peripheral vascular disease, unspecified (principal)

== ENCOUNTER → 2023-06-29 | Outpatient (CLI) | payer MEDICAID, MEDICARE ==
[~2023-06-29] MED LIST changes: +ISOVUE-370 76% 100ML VIAL As Ordered ONE
== END ==
LOC: M RAD 10:41
PROVIDERS: ATTEND Internal Medicine
DX: I73.9 Peripheral vascular disease, unspecified (principal)
CPT/HCPCS: 75635; Q9967

== ENCOUNTER → 2023-07-14 | Outpatient (CLI) | payer MEDICARE ==
[~2023-07-14] MED LIST changes: -ISOVUE-370 76% 100ML VIAL As Ordered ONE
== END ==
LOC: M RAD 13:48
PROVIDERS: ATTEND Internal Medicine
DX: Z87.891 Personal history of nicotine dependence (principal)

== ENCOUNTER → 2023-09-06 | Outpatient (REF) | payer MEDICARE ==
[2023-09-06 17:30] LABS: BASO # 0.1 10^3/uL (0.0-0.2); BASO % 0.7 % (0.0-1.0); EOS # 0.7 10^3/uL (0.0-0.5); EOS % 5.4 % (0.0-3.0); HEMATOCRIT 41.3 % (36.0-47.0); HEMOGLOBIN 13.6 g/dl (12.0-15.5); LYMPH # 5.6 10^3/uL (1.5-5.0); LYMPH % 44.4 % (24.0-44.0); MEAN CORPUSCULAR HGB CONC 32.9 g/dl (32.0-36.5); MEAN CORPUSCULAR VOLUME 94.1 fl (80.0-96.0); MONO % 8.2 % (2.0-8.0); NEUTROPHILS # 5.2 10^3/uL (1.5-8.5); PLATELET COUNT, AUTOMATED 300 10^3/uL (150-450); RED BLOOD COUNT 4.39 10^6/uL (4.00-5.40); WHITE BLOOD COUNT 12.7 10^3/uL (4.0-10.0)
== END ==
LOC: M LAB REF 16:41
PROVIDERS: ATTEND Internal Medicine
DX: D72.829 Elevated white blood cell count, unspecified (principal)

== ENCOUNTER → 2023-09-13 | Outpatient (REF) | payer MEDICARE, MEDICAID | LOC: M LAB REF 09:46 | PROVIDERS: ATTEND Internal Medicine | DX: D72.829 Elevated white blood cell count, unspecified (principal) ==

== ENCOUNTER → 2023-12-29 | Outpatient (CLI) | payer MEDICAID, MEDICARE ==
[~2023-12-29] MED LIST changes: +BENA25CA4 PO; +CALC1TAB42 PO; +HYDR-3490 PO; +HYDR200T46 PO; +IRBE300T25 PO; +MM S100C PO
== END ==
LOC: M RAD 11:44
PROVIDERS: ATTEND Internal Medicine Cardiovascular Disease
DX: I25.10 Atherosclerotic heart disease of native coronary artery without angina pectoris (principal); I73.9 Peripheral vascular disease, unspecified; E78.5 Hyperlipidemia, unspecified; I65.29 Occlusion and stenosis of unspecified carotid artery

== ENCOUNTER → 2024-01-18 | Outpatient (CLI) | payer MEDICARE ==
[~2024-01-18] MED LIST changes: +ISOVUE-370 76% 100ML VIAL ONE
== END ==
LOC: M PLAIMG 12:32
PROVIDERS: ATTEND Internal Medicine
DX: I89.0 Lymphedema, not elsewhere classified (principal); D72.829 Elevated white blood cell count, unspecified
CPT/HCPCS: 70491; Q9967

== ENCOUNTER → 2024-03-01 | Outpatient (CLI) | payer MEDICARE, MEDICAID ==
[~2024-03-01] MED LIST changes: +AMLO1TAB25; +HYDR12CA; -ISOVUE-370 76% 100ML VIAL ONE; +LEVO25TA5
== END ==
LOC: M WHC 08:47
PROVIDERS: ATTEND Dietitian, Registered
DX: M81.0 Age-related osteoporosis without current pathological fracture (principal)

== ENCOUNTER → 2024-03-08 | Outpatient (CLI) | payer MEDICARE, MEDICAID | LOC: M WHC 14:22 | PROVIDERS: ATTEND Internal Medicine | DX: E04.1 Nontoxic single thyroid nodule (principal) ==

== ENCOUNTER 2024-05-07 09:15 | Day surgery (SDC) | payer MEDICARE, MEDICAID ==
[~2024-05-07] VITALS: Ht 154.9 cm; Wt 63.0 kg
[~2024-05-07 09:15] MED LIST changes: +AMLO2.5T3 PO; +NS 250 ML IV ONE; +SYNT25TA PO; +TIZA10TA PO; +VANC250C10 PO; -VANC250C3 PO
[2024-05-07] MEDS ORDERED: propofoL 200 MG/20 ML VIAL As Ordered ONE (11:02)
[2024-05-07 11:35] VITALS: TEMP 97
[2024-05-07 11:55] VITALS: BP 143/90; O2SAT 97
== END 2024-05-07 12:05 | disposition home or self-care (01) ==
LOC: M OPP 09:15
PROVIDERS: ATTEND Internal Medicine Gastroenterology
DX: D12.3 Benign neoplasm of transverse colon (principal); K57.30 Diverticulosis of large intestine without perforation or abscess without bleeding; K64.0 First degree hemorrhoids; Z90.49 Acquired absence of other specified parts of digestive tract; I10 Essential (primary) hypertension; I25.2 Old myocardial infarction; E03.9 Hypothyroidism, unspecified; Z79.890 Hormone replacement therapy; Z79.899 Other long term (current) drug therapy; I71.40 Abdominal aortic aneurysm, without rupture, unspecified; E78.00 Pure hypercholesterolemia, unspecified; Z95.5 Presence of coronary angioplasty implant and graft; Z90.710 Acquired absence of both cervix and uterus; Z85.6 Personal history of leukemia; F17.210 Nicotine dependence, cigarettes, uncomplicated; Z90.81 Acquired absence of spleen; Z88.8 Allergy status to other drugs, medicaments and biological substances

== ENCOUNTER → 2024-08-09 | Outpatient (CLI) | payer MEDICARE, OTHER ==
[~2024-08-09] MED LIST changes: -NS 250 ML IV ONE; -VANC250C10 PO; +VANC250C12 PO
== END ==
LOC: M RAD 07:38
PROVIDERS: ATTEND Internal Medicine
DX: I71.40 Abdominal aortic aneurysm, without rupture, unspecified (principal)

== ENCOUNTER → 2025-06-14 | Outpatient (CLI) | payer MEDICARE, OTHER ==
[~2025-06-14] MED LIST changes: -EFFI10TA7 PO; +HYDR12.510; -HYDR12CA; +PRAS10TA12 PO; -PRAV40TA2 PO; +PRAV40TA85 PO; -PREG50CA PO; +PREG50CA87 PO
== END ==
LOC: M PLAIMG 09:51
PROVIDERS: ATTEND Internal Medicine
DX: M25.552 Pain in left hip (principal); M16.12 Unilateral primary osteoarthritis, left hip